=== PATIENT | male | born 1960 | race Caucasian/White ===

== ENCOUNTER 2018-03-18 21:02 | Emergency (ER) | payer OTHER, MEDICARE ==
[~2018-03-18] VITALS: Ht 170.2 cm; Wt 77.1 kg
[~2018-03-18 21:02] MED LIST: ASP81TEC PO; ASPI-892 PO; ASPI81TA19 PO; CLOP75TA28 PO; CLPD75T PO; INSU100I10 SC; INSU100I14 SC; LISI-556 PO; Lisinopril PO; METO-272 PO; METO50TA7 PO; PNT40TEC PO; SIMV40TA2 PO; SIMV40TA4 PO; VENL150C53 PO
[2018-03-18] MEDS ORDERED: ceFAZolin 1,000 MG/10 ML (ANCEF) VIAL IJ ONE (21:15)
[2018-03-18] MEDS ORDERED: TETANUS,DIPTH,PERTUSS P/F (BOOSTRIX) 0.5 ML VIAL IM ONE (21:15)
--- NOTE | 2018-03-18 21:16 | ED Lower Extremity ---
General Chief Complaint: Laceration Stated Complaint: CUT L KNEE Source: patient Exam Limitations: no limitations History of Present Illness Date Seen by Provider: Mar 18, 2018 Time Seen by Provider: 21:15 Initial Comments To ER with a laceration to the lateral aspect of the left knee. This occurred about 5 PM today while cutting wood. Onset: just prior to arrival Severity: moderate Pain/Injury Location: left knee Method of Injury: fell Modifying Factors: Worse With Movement Allergies and Home Medications Allergies Coded Allergies: No Known Drug Allergies (Unverified , 01/03/14) Home Medications Aspirin 81 Mg Chew, 81 MG PO DAILY Prescribed by: TRUDY STEVENS on 07/13/14 1333 Clopidogrel Bisulfate 75 Mg Tablet, 75 MG PO DAILY, (Reported) Insulin Aspart 100 Unit/1 Ml Insuln.pen, 30 UNITS SC DAILY, (Reported) Insulin Glargine,Hum.rec.anlog 300 Unit/3 Ml Insuln.pen, 55-60 UNITS SC HS, ( Reported) Lisinopril 5 Mg Tablet, 5 MG PO DAILY, (Reported) Metoprolol Succinate 50 Mg Tab.sr.24h, 50 MG PO DAILY, (Reported) Pantoprazole Sod 40 Mg Tab, 40 MG PO DAILY Prescribed by: TRUDY STEVENS on 07/13/14 1330 Simvastatin 40 Mg Tablet, 40 MG PO HS, (Reported) Venlafaxine Hcl 150 Mg Cap.sr.24h, 150 MG PO HS, (Reported) Patient Home Medication List Home Medication List Reviewed: Yes Review of Systems Constitutional: see HPI EENTM: see HPI Respiratory: no symptoms reported Cardiovascular: no symptoms reported Genitourinary: no symptoms reported Musculoskeletal: no symptoms reported Skin: no symptoms reported Psychiatric/Neurological: No Symptoms Reported Past Ezikltk-Odnlru-Lxumqw Hx Patient Social History Recent Foreign Travel: No Contact w/Someone Who Travel: No Immunizations Up To Date Tetanus Booster (TDap): Unknown PED Vaccines UTD: No Past Medical History Coronary Stent, Orthopedic Coronary Artery Disease, High Cholesterol, Hypertension Reproductive Disorders: No Degenerate Disk Disease, Foot Drop Diabetes, Insulin dep Anxiety, Depression Adverse Reaction/Blood Tranf: No (No transfusion hx.) Family Medical History Diabetes mellitus 19 FATHER, Onset:50's - 60 Myocardial infarction 19 FATHER, Onset:Unknown Parkinson's disease 19 MOTHER No Family History of: Degenerative disc disease CAD Under 55 Years Old Physical Exam Vital Signs Vital Signs - First Documented 03/18/18 21:10 Temp 98.0 Pulse 93 Resp 17 B/P (MAP) 154/99 (117) Capillary Refill : Height, Weight, BMI Height: 5'7.00" Weight: 199lbs. 6.0oz. 90.660747sy; BMI Method:Stated General Appearance: WD/WN, no apparent distress HEENT: PERRL/EOMI, normal ENT inspection Respiratory: no respiratory distress, no accessory muscle use Hips: bilateral hip non-tender, bilateral hip normal inspection, bilateral hip normal range of motion Legs: bilateral leg non-tender, bilateral leg normal inspection, bilateral leg normal range of motion Knees: left knee pain, left knee other (there is a large laceration to the lateral aspect of the left knee at the patella. It does appear that he has partially injured the patella. He is able to lift his foot off the bed so the patella and patellar tendons remain intact.) Ankles: bilateral ankle non-tender, bilateral ankle normal inspection, bilateral ankle normal range of motion Feet: bilateral foot non-tender, bilateral foot normal inspection, bilateral foot normal range of motion Neurologic/Psychiatric: alert, normal mood/affect, oriented x 3 Skin: normal color, warm/dry (DC what is wearing) Procedures/Interventions Wound Location: Lower Extremities Wound Length (cm): 6 Wound's Depth, Shape: bone Wound Explored: contaminated Irrigated w/ Saline (ccs): 750 Anesthesia: 1% Lidocaine Volume Anesthetic (ccs): 5 Wound Debrided: moderate Suture: Ethlion, Vicryl Suture Size: 4-0 Number of Sutures: 8 Layer Closure?: 2 Number Deep Layer Sutures: 2 Progress Area anesthetized with 5 mL of 2% lidocaine without epinephrine. Wound then scrubbed with chlorhexidine/saline solution. Wound then irrigated with a total of 750 mL of chlorhexidine/saline solution. On expiration the wound there were some foreign bodies identified which appear to be fibers from the jeans that he was wearing. These were removed. There was a palpable defect in the lateral border of the patella. The fascia overlying this was then closed with 3 buried sutures size 4-0 Vicryl. Skin edges were then brought together loosely with a total of 6 simple interrupted sutures size 4-0 Ethilon. Progress/Results/Core Measures Results/Orders My Orders Orders - OSPINA,PETER J AEROSPACE TECHNICIAN Knee, Left, 3 Views (03/18/18 21:13) Dipht,Pertuss(Acell),Tet Adult (Boostrix (03/18/18 21:15) Cefazolin Injection (Ancef Injection) (03/18/18 21:15) Rx-Hydrocodone/Apap 5-325 Mg (Rx-Vicodin (03/18/18 21:15) Ceftriaxone For Im Use (Rocephin For Im (03/18/18 21:30) Lidocaine 1% Inj 20 Ml (Xylocaine 1% Inj (03/18/18 21:20) Ceftriaxone For Iv Use (Rocephin For I (03/18/18 21:20) Medications Given in ED Current Medications Medications Dose Ordered Sig/Jas Route Start Time Stop Time Status Last Admin Dose Admin Acetaminophen/ Hydrocodone Bitart 1 ea Q4H PRN PO 03/18/18 21:15 03/18/18 21:37 1 EA Ceftriaxone Sodium 1,000 mg STK-MED ONCE .ROUTE 03/18/18 21:20 03/18/18 21:23 DC 03/18/18 21:36 1,000 MG Diphtheria/ Tetanus/Acell Pertussis 0.5 ml ONCE ONCE IM 03/18/18 21:15 03/18/18 21:16 DC 03/18/18 21:35 0.5 ML Lidocaine HCl 20 ml STK-MED ONCE .ROUTE 03/18/18 21:20 03/18/18 21:22 DC 03/18/18 21:36 2.1 ML Vital Signs/I&O 03/18/18 21:10 Temp 98.0 Pulse 93 Resp 17 B/P (MAP) 154/99 (117) Departure Communication (Admissions) He did receive intramuscular Rocephin and Bactrim here in the emergency room. We spoke with Dr. Euceda who is on-call for orthopedics. Recommends thorough irrigation, closure here in the emergency room and he will follow-up next week. He would like to have Keflex and Bactrim prescribed in the outpatient setting. Impression Primary Impression: Knee laceration Disposition: 01 HOME, SELF-CARE Condition: Stable Departure-Patient Inst. Decision time for Depature: 22:16 Referrals: SHAYLA EUCEDA MD, FLOYD R MD (PCP/Family) Primary Care Physician Patient Instructions: Laceration Repair With Stitches (DC) Add. Discharge Instructions: 1. I've listed Dr. Euceda's phone number. Give him a call tomorrow to make an appointment to be seen next week. Antibiotics as directed. 1. Wait 48 hours before showering. Change the bandaid daily. Antibiotics as directed. Scripts Cephalexin (Keflex) 500 Mg Capsule 500 MG PO Q6H, #28 CAP Prov: DAVID OSPINA APRN 03/18/18 Sulfamethoxazole/Trimethoprim (Bactrim Ds Tablet) 1 Each Tablet 1 EACH PO BID, #20 TAB Prov: DAVID OSPINA APRN 03/18/18 DAVID OSPINA APRN Mar 18, 2018 21:16
[2018-03-18] MEDS ORDERED: cefTRIAXone 1 GM/10 ML for IV (ROCEPHIN) ONE (21:20)
[2018-03-18] MEDS ORDERED: LIDOCAINE 1% INJ 20 ML 20 ML VIAL ONE (21:20)
[2018-03-18] MEDS ORDERED: cefTRIAXone 1,000 MG/2.86 ml vial (IM ONLY) IM SCH (21:30)
[2018-03-18] MEDS: RX-HYDROCODONE/APAP 5/325 MG #4 TAB PK PO PRN ×2 (21:37→22:22)
[2018-03-18] MEDS ORDERED: TRIM/SULFAMETH 160/800 (SEPTRA DS) TAB PO STA (21:50)
--- NOTE | 2018-03-18 21:59 | Diagnostic Imaging Report ---
INDICATION: Laceration of the knee COMPARISON: None. FINDINGS: 3 views of the left knee joint demonstrate no acute fracture or dislocation. No focal osseous lesions are seen. No significant joint effusion is seen. There is mild soft tissue emphysema. There are no radiopaque foreign bodies. IMPRESSION: 1. Mild soft tissue emphysema of the left knee, but no unexpected radiopaque foreign bodies. No radiographic evidence of acute osseous injury. Dictated by: Dictated on workstation # [id number]
[2018-03-18] MEDS ORDERED: CEPH-507 PO (22:20)
[2018-03-18] MEDS ORDERED: SULF1TAB35 PO (22:20)
[2018-03-18 22:25] VITALS: BP 154/99
--- OUTSIDE RECORDS SUMMARY | 2018-03-19 04:27 | XMS REPORT | Continuity of Care Document ---
Author Author [facility] Organization [facility] Address Unknown Phone Unavailable Allergies Active Description Code Type Severity Reaction Onset Reported/Identified Relationship to Patient Clinical Status Yes No Known Drug Allergies [id number] Drug Allergy Unknown N/A 01/03/2014 Medications There is no data. Problems Date Dx Coded Attending Type Code Diagnosis Diagnosed By 01/04/2014 [facility]IL[facility] 250.00 DIAB PETRON[place] WO COMPL, TYPE II OR UNSPEC TY 01/04/2014 HILDA AYERS FACC[facility] Ot 300.4 DYSTHYMIC DISORDER 01/04/2014 HILDA A[facility]ERS [facility]ACC[facility] Ot 305.1 TOBACCO USE DISORDER 01/04/2014 HILDA A[facility]ERS [facility]ACC[facility] Ot 401.9 HYPERTENSION NOS 01/04/2014 HILDA AYERS FACC[facility] Ot 414.01 CORONARY ATHEROSCLEROSIS OF [place] CORON 01/04/2014 HILDA AYERS FACC, [facility] Ot V17.3 FAM HX-ISCHEM HEART DIS 01/04/2014 HILDA AYERS FACC[facility] Ot V58.67 LONG-TERM (CURRENT) USE OF INSULIN 01/04/2014 TRUDY STEVENS MD, FACC [facility] CCDS Ot V58.69 OTH MED,LT,CURRENT USE 03/10/2014 ABRAHAN PEÑA LOCOMOTIVE CRANE OPERATOR Ot 272.4 03/10/2014 ABRAHAN PEÑA LOCOMOTIVE CRANE OPERATOR Ot 414.9 03/15/2014 Ot 250.00 03/15/2014 Ot 272.4 03/15/2014 Ot 401.1 03/15/2014 Ot 250.00 03/15/2014 Ot 401.1 03/15/2014 Ot 722.0 03/15/2014 Ot 722.51 03/15/2014 Ot 781.3 03/15/2014 Ot 781.3 03/15/2014 Ot V81.5 03/15/2014 ABRAHAN PEÑA LOCOMOTIVE CRANE OPERATOR Ot 272.4 03/15/2014 ABRAHAN PEÑA LOCOMOTIVE CRANE OPERATOR Ot 414.9 07/11/2014 Ot 250.00 07/11/2014 Ot 272.4 07/11/2014 Ot 401.1 07/11/2014 Ot 250.00 07/11/2014 Ot 401.1 07/11/2014 Ot 722.0 07/11/2014 Ot 722.51 07/11/2014 Ot 781.3 07/11/2014 Ot 781.3 07/11/2014 Ot V81.5 07/11/2014 ABRAHAN PEÑA LOCOMOTIVE CRANE OPERATOR Ot 272.4 07/11/2014 ABRAHAN PEÑA LOCOMOTIVE CRANE OPERATOR Ot 414.9 07/13/2014 HILDA AYERS FACC, ALI FACP CCDS Ot 250.00 07/13/2014 HILDA AYERS FACC, ALI FACP CCDS Ot 272.4 07/13/2014 HILDA THOMASC, ALI FACP CCDS Ot 300.00 07/13/2014 HILDA THOMASC, ALI FACP CCDS Ot 305.01 07/13/2014 HILDA AYERS FACC, ALI FACP CCDS Ot 305.1 07/13/2014 HILDA AYERS FACC, ALI FACP CCDS Ot 311 07/13/2014 HILDA AYERS FACC, ALI FACP CCDS Ot 401.9 07/13/2014 HILDA AYERS FACC, ALI FACP CCDS Ot 414.01 07/13/2014 HILDA THOMASC, ALI FACP CCDS Ot 530.81 07/13/2014 HILDA THOMASC, ALI FACP CCDS Ot 715.90 07/13/2014 HILDA THOMASC, ALI FACP CCDS Ot 736.79 07/13/2014 HILDA AYERS FACC, ALI FACP CCDS Ot 786.50 07/13/2014 HILDA AYERS FACC, ALI FACP CCDS Ot V15.81 07/13/2014 HILDA THOMASC, ALI FACP CCDS Ot V17.3 07/13/2014 HILDA AYERS FACC, ALI FACP CCDS Ot V45.82 07/13/2014 HILDA AYERS FACC, ALI FACP CCDS Ot 250.00 DIAB PETRONA WO COMPL, TYPE II OR UNSPEC TY 07/13/2014 HILDA AYERS FACC, ALI FACP CCDS Ot 272.4 HYPERLIPIDEMIA NEC/NOS 07/13/2014 HILDA AYERS FACC, ALI FACP CCDS Ot 300.00 ANXIETY STATE NOS 07/13/2014 HILDA AYERS FACC, ALI FACP CCDS Ot 305.01 ALCOHOL ABUSE-CONTINUOUS 07/13/2014 HILDA AYERS FACC, ALI FACP CCDS Ot 305.1 TOBACCO USE DISORDER 07/13/2014 HILDA AYERS FACC, ALI FACP CCDS Ot 311 DEPRESSIVE DISORDER NEC 07/13/2014 HILDA AYERS FACC, ALI FACP CCDS Ot 401.9 HYPERTENSION NOS 07/13/2014 HILDA AYERS FACC, ALI FACP CCDS Ot 414.01 CORONARY ATHEROSCLEROSIS OF [place] CORON 07/13/2014 HILDA THOMASC, ALI FACP CCDS Ot 530.81 ESOPHAGEAL REFLUX 07/13/2014 HILDA THOMASC, ALI FACP CCDS Ot 715.90 OSTEOARTHROS NOS-UNSPEC 07/13/2014 HILDA AYERS FACC, ALI FACP CCDS Ot 736.79 ACQ ANKLE-FOOT DEF NEC 07/13/2014 HILDA AYERS FACC, ALI FACP CCDS Ot 786.50 07/13/2014 HILDA AYERS FACC, ALI FACP CCDS Ot 786.59 CHEST PAIN NEC 07/13/2014 HILDA AYERS FACC, ALI FACP CCDS Ot V15.81 HX OF PAST NONCOMPLIANCE 07/13/2014 HILDA AYERS FACC, ALI FACP CCDS Ot V17.3 FAM HX-ISCHEM HEART DIS 07/13/2014 HILDA THOMASC, ALI FACP CCDS Ot V45.82 PERCUTANEOUS TRANSLUM CORON ANGIOPLASTY 04/19/2015 Ot 250.00 04/19/2015 Ot 401.1 04/19/2015 Ot 722.0 04/19/2015 Ot 722.51 04/19/2015 Ot 781.3 04/19/2015 Ot 781.3 04/19/2015 Ot V81.5 04/19/2015 ABRAHAN PEÑA LOCOMOTIVE CRANE OPERATOR Ot 272.4 04/19/2015 ABRAHAN PEÑA LOCOMOTIVE CRANE OPERATOR Ot 414.9 04/19/2015 JC AYERS, ELVIS Cheung Ot 355.9 04/19/2015 ELVIS GREENE MD Ot 723.1 04/19/2015 ELVIS GREENE MD R Ot 724.2 04/23/2016 Ot 722.0 CERVICAL DISC DISPLACMNT 04/23/2016 Ot 722.51 THORACIC DISC DEGEN 04/23/2016 Ot 781.3 LACK OF COORDINATION 04/23/2016 Ot 781.3 LACK OF COORDINATION 04/23/2016 Ot V81.5 SCREEN FOR NEPHROPATHY 04/23/2016 ABRAHAN PEÑA LOCOMOTIVE CRANE OPERATOR Ot 272.4 HYPERLIPIDEMIA NEC/NOS 04/23/2016 ABRAHAN PEÑA LOCOMOTIVE CRANE OPERATOR Ot 414.9 CHR ISCHEMIC HRT DIS NOS 04/23/2016 JC AYERS, ELVIS R Ot 355.9 MONONEURITIS NOS 04/23/2016 JC AYERS, ELVIS R Ot 723.1 CERVICALGIA 04/23/2016 ELVIS GREENE MD R Ot 724.2 LUMBAGO 02/23/2017 PHOENIX SCHMITZ MD Ot S49.91XA UNSP INJURY OF RIGHT SHOULDER AND UPPER 02/23/2017 PHOENIX SCHMITZ MD Ot W17.89XA OTHER FALL FROM ONE LEVEL TO ANOTHER, IN 02/23/2017 PHOENIX SCHMITZ MD Ot W55.19XA OTHER CONTACT WITH HORSE, INITIAL ENCOUN 02/23/2017 PHOENIX SCHMITZ MD Ot Y99.8 OTHER EXTERNAL CAUSE STATUS 04/10/2017 PHOENIX SCHMITZ MD Ot S49.91XA UNSP INJURY OF RIGHT SHOULDER AND UPPER 04/10/2017 PHOENIX SCHMITZ MD Ot W17.89XA OTHER FALL FROM ONE LEVEL TO ANOTHER, IN 04/10/2017 PHOENIX SCHMITZ MD Ot W55.19XA OTHER CONTACT WITH HORSE, INITIAL ENCOUN 04/10/2017 PHOENIX SCHMITZ MD Ot Y99.8 OTHER EXTERNAL CAUSE STATUS 04/24/2017 PHOENIX SCHMITZ MD Ot S49.91XA UNSP INJURY OF RIGHT SHOULDER AND UPPER 04/24/2017 PHOENIX SCHMITZ MD Ot W17.89XA OTHER FALL FROM ONE LEVEL TO ANOTHER, IN 04/24/2017 PHOENIX SCHMITZ MD Ot W55.19XA OTHER CONTACT WITH HORSE, INITIAL ENCOUN 04/24/2017 PHOENIX SCHMITZ MD Ot Y99.8 OTHER EXTERNAL CAUSE STATUS Procedures There is no data. Results There is no data. Encounters ACCT No. Visit Date/Time Discharge Status Pt. Type Provider Facility Loc./Unit Complaint [id number] 02/22/2017 17:48:00 02/22/2017 23:59:59 CLS Outpatient NADIR AYERS, PHOENIX Reaves [facility] RAD FELL OFF HORSE ON SHOULDER [id number] 08/09/2014 10:22:00 08/09/2014 23:59:59 CLS Outpatient JC AYERS, ELVIS R [facility] RAD NECK PAIN, LBP [id number] 07/12/2014 11:43:00 07/13/2014 16:05:00 DIS Inpatient HILDA AYERS FACC, TRUDY INFANTE CCDS [facility] CSD CHEST PAIN [id number] 02/03/2014 08:40:00 02/03/2014 23:59:59 CLS Outpatient ABRAHAN PEÑA [facility] LAB HYPERLIPADEMIA,NEC, [id number] 01/03/2014 08:00:00 01/04/2014 11:00:00 DIS Outpatient TRUDY STEVENS MD, FACC, FACP CCDS [facility] CATH CHEST PAIN [id number] 02/25/2011 12:17:00 Document Registration [id number] 02/23/2011 09:10:00 Document Registration [id number] 02/24/2010 07:45:00 Document Registration [id number] 08/05/2009 13:06:00 Document Registration
== END 2018-03-18 22:29 | disposition home or self-care (01) ==
LOC: EDUNIT# 21:02 → ER 21:03
DX: S81.012A Laceration without foreign body, left knee, initial encounter (principal); I25.10 Atherosclerotic heart disease of native coronary artery without angina pectoris; E78.00 Pure hypercholesterolemia, unspecified; I10 Essential (primary) hypertension; E11.9 Type 2 diabetes mellitus without complications; F41.9 Anxiety disorder, unspecified; F32.9 Major depressive disorder, single episode, unspecified; Z23 Encounter for immunization; Z95.5 Presence of coronary angioplasty implant and graft; Z82.49 Family history of ischemic heart disease and other diseases of the circulatory system; Z79.82 Long term (current) use of aspirin; Z79.02 Long term (current) use of antithrombotics/antiplatelets; Z79.4 Long term (current) use of insulin; W26.9XXA Contact with unspecified sharp object(s), initial encounter; W19.XXXA Unspecified fall, initial encounter
CPT/HCPCS: 73562; 90715

== ENCOUNTER → 2018-04-27 | Outpatient (CLI) | payer OTHER, MEDICARE ==
[~2018-04-27] VITALS: Ht 170.2 cm; Wt 77.1 kg
[~2018-04-27] MED LIST changes: +CATHETER FLUSH 10 ML SYR IV PRN; +CEPH-507 PO; +REGADENOSON 0.4 MG/5 ML SYR (LEXISCAN) IV ONE; +SULF1TAB35 PO
[2018-04-27 08:16] VITALS: BP 135/86
[2018-04-27 08:28] VITALS: BP 137/78
--- NOTE | 2018-04-28 11:30 | STRESS TEST ---
DATE OF SERVICE: 04/27/2018 RESTING AND POST REGADENOSON TECHNETIUM-99M TETROFOSMIN SPECT CT IMAGING ORDERING PHYSICIAN: Dr. Montelongo. PRIMARY PHYSICIAN: Dr. Irizarry. CLINICAL DIAGNOSES: Coronary artery disease, diabetes and hypertension. Baseline images were carried out after injection of 10.13 mCi of technetium-99m Tetrofosmin for stress imaging. This was followed by 0.4 mg Regadenoson and 32.3 mCi of technetium-99m Tetrofosmin for stress imaging. The electrocardiogram showed sinus rhythm at baseline and did not change significantly with the Regadenoson infusion. The patient noted some shortness of breath and a headache following Regadenoson infusion, which resolved in a few minutes. Review of images at rest and following stress does not indicate any distinct perfusion defects consistent with significant myocardial ischemia or infarction. Some degree of diaphragmatic attenuation is seen both at rest and following a Regadenoson infusion. Gated images show a normal global left ventricular systolic function with normal regional wall motion, including the diaphragmatic wall of the left ventricle. Left ventricular ejection fraction is calculated to be 70%. Left ventricular end diastolic volume is 52 mL. TID is absent (1.09). CONCLUSIONS: 1. No evidence of any significant myocardial ischemia or infarction. 2. Normal regional wall motion. 3. Normal global left ventricular systolic function with a calculated ejection fraction of 70%. Job ID: [id number] DocumentID: [id number] Dictated Date: 04/28/2018 09:20:24 Helmet Hat Puncher Date: 04/28/2018 11:30:20 Dictated By: TRUDY MONTELONGO MD, MA, FACP, FACC,
== END ==
LOC: CARD 07:24
PROVIDERS: ATTEND Internal Medicine Cardiovascular Disease
DX: I25.10 Atherosclerotic heart disease of native coronary artery without angina pectoris (principal); E11.9 Type 2 diabetes mellitus without complications; I10 Essential (primary) hypertension; Z72.0 Tobacco use
CPT/HCPCS: 78452; 93017

== ENCOUNTER 2018-05-22 04:03 | Emergency (ER) | payer OTHER, MEDICARE ==
[~2018-05-22] VITALS: Ht 177.8 cm; Wt 77.1 kg
[~2018-05-22 04:03] MED LIST changes: -CATHETER FLUSH 10 ML SYR IV PRN; -REGADENOSON 0.4 MG/5 ML SYR (LEXISCAN) IV ONE
--- OUTSIDE RECORDS SUMMARY | 2018-05-22 04:10 | XMS REPORT | Continuity of Care Document ---
Author Author [facility] [address] Organization [facility] [address] Address Unknown Phone Unavailable Allergies Active Description Code Type Severity Reaction Onset Reported/Identified Relationship to Patient Clinical Status Yes No Known Drug Allergies [id number] Drug Allergy Unknown N/A 01/03/2014 Medications There [...] HOSPITAL[facility] CCDS Ot 414.01 CORONARY ATHEROSCLEROSIS OF [place] CORON 01/04/2014 HILDA AYERS [facility]ACC, [facility] Ot V17.3 FAM HX-ISCHEM HEART DIS 01/04/2014 HILDA AYERS FACC, TRUD[facility] Ot V58.67 LONG-TERM (CURRENT) USE OF INSULIN 01/04/2014 TRUDY STEVENS MD, FACC [facility] CCDS Ot V58.69 OTH MED,LT,CURRENT USE 03/10/2014 ABRAHAN PEÑA AUTO FLEET MANAGER Ot 272.4 03/10/2014 ABRAHAN PEÑA AUTO FLEET MANAGER Ot 414.9 03/15/2014 Ot 250.00 03/15/2014 Ot 272.4 03/15/2014 Ot 401.1 03/15/2014 Ot 250.00 03/15/2014 Ot 401.1 03/15/2014 Ot 722.0 03/15/2014 Ot 722.51 03/15/2014 Ot 781.3 03/15/2014 Ot 781.3 03/15/2014 Ot V81.5 03/15/2014 ABRAHAN PEÑA AUTO FLEET MANAGER Ot 272.4 03/15/2014 ABRAHAN PEÑA AUTO FLEET MANAGER Ot 414.9 07/11/2014 Ot 250.00 07/11/2014 Ot 272.4 07/11/2014 Ot 401.1 07/11/2014 Ot 250.00 07/11/2014 Ot 401.1 07/11/2014 Ot 722.0 07/11/2014 Ot 722.51 07/11/2014 Ot 781.3 07/11/2014 Ot 781.3 07/11/2014 Ot V81.5 07/11/2014 ABRAHAN PEÑA AUTO FLEET MANAGER Ot 272.4 07/11/2014 ABRAHAN PEÑA AUTO FLEET MANAGER Ot 414.9 07/13/2014 HILDA AYERS FACC, ALI [...] FACC, ALI FACP CCDS Ot 401.9 07/13/2014 IHLDA AYERS FACC, ALI FACP CCDS Ot 414.01 [...] FACP CCDS Ot 414.01 CORONARY ATHEROSCLEROSIS OF [place] CORON 07/13/2014 HILDA THOMASC, ALI FACP CCDS [...] Ot V15.81 HX OF PAST NONCOMPLIANCE 07/13/2014 HILAD AYERS FACC, ALI FACP CCDS Ot V17.3 FAM HX-ISCHEM HEART DIS 07/13/2014 HILDA THOMASC, ALI FACP CCDS Ot V45.82 PERCUTANEOUS TRANSLUM CORON ANGIOPLASTY 04/19/2015 Ot 250.00 04/19/2015 Ot 401.1 04/19/2015 Ot 722.0 04/19/2015 Ot 722.51 04/19/2015 Ot 781.3 04/19/2015 Ot 781.3 04/19/2015 Ot V81.5 04/19/2015 ABRAHAN PEÑA AUTO FLEET MANAGER Ot 272.4 04/19/2015 ABRAHAN PEÑA AUTO FLEET MANAGER Ot 414.9 04/19/2015 JC AYERS, ELVIS Cheung Ot 355.9 04/19/2015 ELVIS GREENE MD Ot 723.1 04/19/2015 ELVIS GREENE MD R Ot 724.2 04/23/2016 Ot 722.0 CERVICAL DISC DISPLACMNT 04/23/2016 Ot 722.51 THORACIC DISC DEGEN 04/23/2016 Ot 781.3 LACK OF COORDINATION 04/23/2016 Ot 781.3 LACK OF COORDINATION 04/23/2016 Ot V81.5 SCREEN FOR NEPHROPATHY 04/23/2016 RUBIABRAHAN SANCHEZ L AUTO FLEET MANAGER Ot 272.4 HYPERLIPIDEMIA NEC/NOS 04/23/2016 RUBIDANIEL ABRAHAN L AUTO FLEET MANAGER Ot 414.9 CHR ISCHEMIC HRT DIS NOS 04/23/2016 JC AYERS, ELVIS R Ot 355.9 MONONEURITIS NOS 04/23/2016 JC AYERS, ELVIS R Ot 723.1 CERVICALGIA 04/23/2016 JC AYERS, ELVIS R Ot 724.2 LUMBAGO 02/23/2017 PHOENIX SCHMITZ [...] MD Ot Y99.8 OTHER EXTERNAL CAUSE STATUS 03/18/2018 RUBIDANIELABRAHAN L AUTO FLEET MANAGER Ot 272.4 HYPERLIPIDEMIA NEC/NOS 03/18/2018 ABRAHAN PEÑA AUTO FLEET MANAGER Ot 414.9 CHR ISCHEMIC HRT DIS NOS 03/18/2018 JC AYERS, ELVIS R Ot 355.9 MONONEURITIS NOS 03/18/2018 JC AYERS, ELVIS R Ot 723.1 CERVICALGIA 03/18/2018 JC AYERS, ELVIS R Ot 724.2 LUMBAGO 03/18/2018 PHOENIX SCHMITZ MD Ot S49.91XA UNSP INJURY OF RIGHT SHOULDER AND UPPER 03/18/2018 PHOENIX SCHMITZ MD Ot W17.89XA OTHER FALL FROM ONE LEVEL TO ANOTHER, IN 03/18/2018 PHOENIX SCHMITZ MD Ot W55.19XA OTHER CONTACT WITH HORSE, INITIAL ENCOUN 03/18/2018 PHOENIX SCHMITZ MD Ot Y99.8 OTHER EXTERNAL CAUSE STATUS 03/18/2018 DAVID OSPINA APRN Ot E11.9 TYPE 2 DIABETES MELLITUS WITHOUT COMPLIC 03/18/2018 DAVID OSPINA APRN Ot E78.00 PURE HYPERCHOLESTEROLEMIA, UNSPECIFIED 03/18/2018 DAVID OSPINA APRN Ot F32.9 MAJOR DEPRESSIVE DISORDER, SINGLE EPISOD 03/18/2018 DAVID OSPINA APRN Ot F41.9 ANXIETY DISORDER, UNSPECIFIED 03/18/2018 DAVID OSPINA APRN Ot I10 ESSENTIAL (PRIMARY) HYPERTENSION 03/18/2018 DAVID OSPINA APRN Ot I25.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[place] CORONARY 03/18/2018 DAVID OSPINA APRN Ot S81.012A LACERATION WITHOUT FOREIGN BODY, LEFT KN 03/18/2018 DAVID OSPINA APRN Ot W19.XXXA UNSPECIFIED FALL, INITIAL ENCOUNTER 03/18/2018 DAVID OSPINA APRN Ot W26.9XXA CONTACT WITH UNSPECIFIED SHARP OBJECT(S) 03/18/2018 DAVID OSPINA APRN Ot Z23 ENCOUNTER FOR IMMUNIZATION 03/18/2018 DAVID OSPINA APRN Ot Z79.02 LADLE MECHANIC (CURRENT) USE OF ANTITHROMBOTI 03/18/2018 DAVID OSPINA APRN Ot Z79.4 LADLE MECHANIC (CURRENT) USE OF INSULIN 03/18/2018 DAVID OSPINA APRN Ot Z79.82 SKILLED NURSING (CURRENT) USE OF ASPIRIN 03/18/2018 DAVID OSPINA APRN Ot Z82.49 FAMILY HX OF ISCHEM HEART DIS AND OTH DI 03/18/2018 DAVID OSPINA APRN Ot Z95.5 PRESENCE OF CORONARY ANGIOPLASTY IMPLANT 03/21/2018 DAVID OSPINA APRN Ot E11.9 TYPE 2 DIABETES MELLITUS WITHOUT COMPLIC 03/21/2018 DAVID OSPINA APRN Ot E78.00 PURE HYPERCHOLESTEROLEMIA, UNSPECIFIED 03/21/2018 DAVID OSPINA APRN Ot F32.9 MAJOR DEPRESSIVE DISORDER, SINGLE EPISOD 03/21/2018 DAVID OSPINA APRN Ot F41.9 ANXIETY DISORDER, UNSPECIFIED 03/21/2018 DAVID OSPINA APRN Ot I10 ESSENTIAL (PRIMARY) HYPERTENSION 03/21/2018 DAVID OSPINA APRN Ot I25.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[place] CORONARY 03/21/2018 DAVID OSPINA APRN Ot S81.012A LACERATION WITHOUT FOREIGN BODY, LEFT KN 03/21/2018 DAVID OSPINA APRN Ot W19.XXXA UNSPECIFIED FALL, INITIAL ENCOUNTER 03/21/2018 DAVID OSPINA APRN Ot W26.9XXA CONTACT WITH UNSPECIFIED SHARP OBJECT(S) 03/21/2018 DAVID OSPINA APRN Ot Z23 ENCOUNTER FOR IMMUNIZATION 03/21/2018 DAVID OSPINA APRN Ot Z79.02 SKILLED NURSING (CURRENT) USE OF ANTITHROMBOTI 03/21/2018 DAVID OSPINA APRN Ot Z79.4 SKILLED NURSING (CURRENT) USE OF INSULIN 03/21/2018 DAVID OSIPNA APRN Ot Z79.82 LADLE MECHANIC (CURRENT) USE OF ASPIRIN 03/21/2018 DAVID OSPINA APRN Ot Z82.49 FAMILY HX OF ISCHEM HEART DIS AND OTH DI 03/21/2018 DAVID OSPINA APRN Ot Z95.5 PRESENCE OF CORONARY ANGIOPLASTY IMPLANT 03/23/2018 JC AYERS, ELVIS R Ot 355.9 MONONEURITIS NOS 03/23/2018 JC AYERS, ELVIS R Ot 723.1 CERVICALGIA 03/23/2018 JC AYERS, ELVIS R Ot 724.2 LUMBAGO 03/23/2018 NADIR AYERS, PHOENIX Reaves Ot S49.91XA UNSP INJURY OF RIGHT SHOULDER AND UPPER 03/23/2018 PHOENIX SCHMITZ MD Ot W17.89XA OTHER FALL FROM ONE LEVEL TO ANOTHER, IN 03/23/2018 PHOENIX SCHMITZ MD Ot W55.19XA OTHER CONTACT WITH HORSE, INITIAL ENCOUN 03/23/2018 PHOENIX SCHMITZ MD Ot Y99.8 OTHER EXTERNAL CAUSE STATUS 04/27/2018 ELVIS GREENE MD R Ot 355.9 MONONEURITIS NOS 04/27/2018 JC AYERS ELVIS R Ot 723.1 CERVICALGIA 04/27/2018 MARIANGEL GREENE MDYD R Ot 724.2 LUMBAGO 04/27/2018 PHOENIX SCHMITZ MD Ot S49.91XA UNSP INJURY OF RIGHT SHOULDER AND UPPER 04/27/2018 PHOENIX SCHMITZ MD Ot W17.89XA OTHER FALL FROM ONE LEVEL TO ANOTHER, IN 04/27/2018 PHOENIX SCHMITZ MD Ot W55.19XA OTHER CONTACT WITH HORSE, INITIAL ENCOUN 04/27/2018 PHOENIX SCHMITZ MD Ot Y99.8 OTHER EXTERNAL CAUSE STATUS 04/28/2018 HILDA AYERS FACC, TRUDY [facility] CCDS Ot E11.9 TYPE 2 DIABETES MELLITUS WITHOUT COMPLIC 04/28/2018 HILDA AYERS FACC, TRUDY FACP CCDS Ot I10 ESSENTIAL (PRIMARY) HYPERTENSION 04/28/2018 HILDA AYERS FACC, TRUDY FACP CCDS Ot I25.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[place] CORONARY 04/28/2018 HILDA AYERS FACC, TRUDY [facility] CCDS Ot Z72.0 TOBACCO USE Procedures There is no data. Results There is no data. Encounters ACCT No. Visit Date/Time Discharge Status Pt. Type Provider Facility Loc./Unit Complaint [id number] 04/27/2018 07:24:00 04/27/2018 23:59:59 CLS Outpatient HILDA AYERS FACC, TRUDY FACP CCDS [facility] [address] [facility] CARD CAD,DM,HTN, CHEWING TOBACCO USE [id number] 03/18/2018 21:03:00 03/18/2018 22:29:00 DIS Emergency DAVID OSPINA APRN [facility] [address] ER CUT L KNEE [id number] 02/22/2017 17:48:00 02/22/2017 23:59:59 CLS Outpatient NADIR AYERS, PHOENIX Reaves [facility] [address] RAD FELL OFF HORSE ON SHOULDER [id number] 08/09/2014 10:22:00 08/09/2014 23:59:59 CLS Outpatient JC AYERS, ELVIS R [facility] [address] RAD NECK PAIN, LBP [id number] 07/12/2014 11:43:00 07/13/2014 16:05:00 DIS Inpatient HILDA AYERS FACRoberto, TRUDY INFANTE CCDS [facility] [address] CSD CHEST PAIN [id number] 02/03/2014 08:40:00 02/03/2014 23:59:59 CLS Outpatient ABRAHAN PEÑA [facility] [address] LAB HYPERLIPADEMIA,NEC, [id number] 01/03/2014 08:00:00 01/04/2014 11:00:00 DIS Outpatient HILDA AYERS FACC, TRUDY INFANTE CCDS [facility] [address] CATH CHEST PAIN [id number] 05/22/2018 04:05:00 ACT Emergency HARJIT DOBONIFACIO K [facility] [address] ER FLU,POSS HIGH SUGAR,FEVER,SORE THROAT,POSS BROKEN [id number] 02/25/2011 12:17:00 Document Registration [id number] 02/23/2011 09:10:00 Document Registration [id number] 02/24/2010 07:45:00 Document Registration [id number] 08/05/2009 13:06:00 Document Registration
[2018-05-22] MEDS ORDERED: ACETAMINOPHEN 500 MG TAB (TYLENOL) PO ONE (04:30)
[2018-05-22] MEDS ORDERED: IBUPROFEN 800 MG (MOTRIN) TAB PO ONE (04:30)
--- NOTE | 2018-05-22 04:30 | ED Cough/URI ---
General Chief Complaint: Cough/Cold/Flu Symptoms Stated Complaint: FLU,POSS HIGH SUGAR,FEVER,SORE THROAT,POSS BROKEN Nursing Triage Note: Pt arrived by private vehicle with chief complaint of flu, sore throat, fever, runny nose and collar bone out of place. Pt stated it started 3 days ago and got worse today. Pt has fever of 100.1 and pt stated he is diabetic. Pt was asked if he has checked his blood sugar recently and he stated no. Sepsis Screen: Possible Sepsis Risk Source: patient History of Present Illness Date Seen by Provider: May 22, 2018 Time Seen by Provider: 04:20 Initial Comments PT ARRIVES VIA POV FROM HOME C/O COUGH AND CONGESTION SINCE Thursday05/09/18 C/O SUBJECTIVE FEVER AND CHILLS C/O SORE THROAT C/O BODY ACHES HAS NOT TAKEN ANYTHING FOR SYMPTOMS AT ANY TIME HAS NOT SOUGHT CARE UNTIL TODAY STATES GRANDKIDS TESTED + FOR FLU THIS WEEK PT IS DIABETIC. DOES NOT ROUTINELY CHECK BLOOD SUGAR PCP: DR. ROSARIO Allergies and Home Medications Allergies Coded Allergies: No Known Drug Allergies (Unverified , 01/03/14) Home Medications Aspirin 81 Mg Chew, 81 MG PO DAILY Prescribed by: TRUDY STEVENS on 07/13/14 1333 Benzonatate 100 Mg Capsule, 1-2 TAB PO TID Prescribed by: BONIFACIO LOMBARDI on 05/22/18447 Cephalexin 500 Mg Capsule, 500 MG PO Q6H Prescribed by: DAVID OSPINA on 03/18/18 2220 Clopidogrel Bisulfate 75 Mg Tablet, 75 MG PO DAILY, (Reported) Guaifenesin/Dextromethorphan 1 Each Tbmp.12hr, 1 EACH PO BID Prescribed by: BONIFACIO LOMBARDI on 05/22/18447 Insulin Aspart 100 Unit/1 Ml Insuln.pen, 30 UNITS SC DAILY, (Reported) Insulin Glargine,Hum.rec.anlog 300 Unit/3 Ml Insuln.pen, 55-60 UNITS SC HS, ( Reported) Lisinopril 5 Mg Tablet, 5 MG PO DAILY, (Reported) Metoprolol Succinate 50 Mg Tab.sr.24h, 50 MG PO DAILY, (Reported) Pantoprazole Sod 40 Mg Tab, 40 MG PO DAILY Prescribed by: TRUDY STEVENS on 07/13/14 1330 Simvastatin 40 Mg Tablet, 40 MG PO HS, (Reported) Sulfamethoxazole/Trimethoprim 1 Each Tablet, 1 EACH PO BID Prescribed by: DAVID OSPINA on 03/18/180 Venlafaxine Hcl 150 Mg Cap.sr.24h, 150 MG PO HS, (Reported) Patient Home Medication List Home Medication List Reviewed: Yes Review of Systems Review of Systems Constitutional: see HPI, chills, diaphoresis, fever EENTM: nose congestion, throat pain Respiratory: see HPI, cough; No phlegm, No short of breath, No wheezing Cardiovascular: no symptoms reported Gastrointestinal: no symptoms reported; No diarrhea, No nausea, No vomiting Genitourinary: no symptoms reported Musculoskeletal: see HPI (BODY ACHES), other (FX LEFT CLAVICLE 04/13/19--NO SURGERY, IS NOT WEARING A SLING) Skin: no symptoms reported Psychiatric/Neurological: No Symptoms Reported Hematologic/Lymphatic: No Symptoms Reported Immunological/Allergic: no symptoms reported Past Fbighxt-Nabvqu-Lxyqii Hx Patient Social History Alcohol Use: Denies Use Recreational Drug Use: No Smoking Status: Never a Smoker Recent Foreign Travel: No Contact w/Someone Who Travel: No Recent Infectious Disease Expo: No Recent Hopitalizations: No Physical Abuse: No Sexual Abuse: No Mistreated: No Fear: No Immunizations Up To Date Tetanus Booster (TDap): Unknown PED Vaccines UTD: No Seasonal Allergies Seasonal Allergies: No Past Medical History Surgeries: Yes (CARDIAC CATH--STENT X 1; CERVICAL AND LUMBAR SPINE SURGERY) Cardiac, Coronary Stent, Orthopedic Respiratory: No Cardiac: Yes Coronary Artery Disease, Hypertension, Hypotension Neurological: No Reproductive Disorders: No Gastrointestinal: No Musculoskeletal: Yes (CERVICAL FUSION C5-6; LUMBAR SPINE SURGERY; CHRONIC NECK AND BACK PAIN; LEFT CLAVICLE FX 04/13/18--NO SURGERY) Degenerate Disk Disease, Foot Drop, Chronic Back Pain, Fractures Endocrine: Yes (NON-COMPLIANCE IN ALL ASPECTS OF CARE) Diabetes, Insulin dep HEENT: No Cancer: No Psychosocial: Yes Anxiety, Depression Integumentary: No Blood Disorders: No Adverse Reaction/Blood Tranf: No (No transfusion hx.) Family Medical History Diabetes mellitus 19 FATHER, Onset:50's - 60 Myocardial infarction 19 FATHER, Onset:Unknown Parkinson's disease 19 MOTHER No Family History of: Degenerative disc disease CAD Under 55 Years Old Physical Exam Vital Signs - First Documented Capillary Refill : Less Than 3 Seconds Height: 5'10.00" Weight: 170lbs. 0.0oz. 77.740761kk; 26.6 BMI Method:Stated General Appearance: WD/WN, no apparent distress, other (VERY DRAMATIC, MOANING LOUDLY) HEENT: PERRL/EOMI, normal ENT inspection, TMs normal, pharynx normal, other ( MILD POST NASAL DRAINAGE) Neck: non-tender, full range of motion, supple, normal inspection Respiratory: normal breath sounds, no respiratory distress, no accessory muscle use, other (DEFORMITY TO LEFT CLAVICLE AREA. 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, no motor/sensory deficits, alert, oriented x 3 Skin: normal color Procedures/Interventions Suture Size: 4-0 Progress/Results/Core Measures Suspected Sepsis Recent Fever Within 48 Hours: Yes Infection Criteria Present: Suspected New Infection New/Unexplained Altered Menta: No Sepsis Screen: Possible Sepsis Risk SIRS Temperature:100.1 Pulse: 98 Respiratory Rate: 22 Laboratory Tests 05/22/18 05:05: White Blood Count 12.2H Blood Pressure 159 /94 Mean: 115 Laboratory Tests 05/22/18 05:05: Creatinine 1.03, Platelet Count 144, Total Bilirubin 0.3 Results/Orders Lab Results Laboratory Tests Test 05/22/18 04:15 05/22/18 04:52 05/22/18 05:05 05/22/18 05:30 Range/Units Group A Streptococcus Screen NEGATIVE NEGATIVE Glucometer 347 H 70-110 MG/DL White Blood Count 12.2 H 4.3-11.0 10^3/uL Red Blood Count 4.75 4.35-5.85 10^6/uL Hemoglobin 14.8 13.3-17.7 G/DL Hematocrit 42 40-54 % Mean Corpuscular Volume 89 80-99 FL Mean Corpuscular Hemoglobin 31 25-34 PG Mean Corpuscular Hemoglobin Concent 35 32-36 G/DL Red Cell Distribution Width 12.2 10.0-14.5 % Platelet Count 144 130-400 10^3/uL Mean Platelet Volume 10.6 H 7.4-10.4 FL Neutrophils (%) (Auto) 80 H 42-75 % Lymphocytes (%) (Auto) 7 L 12-44 % Monocytes (%) (Auto) 12 0-12 % Eosinophils (%) (Auto) 1 0-10 % Basophils (%) (Auto) 0 0-10 % Neutrophils # (Auto) 9.7 H 1.8-7.8 X 10^3 Lymphocytes # (Auto) 0.9 L 1.0-4.0 X 10^3 Monocytes # (Auto) 1.4 H 0.0-1.0 X 10^3 Eosinophils # (Auto) 0.1 0.0-0.3 10^3/uL Basophils # (Auto) 0.0 0.0-0.1 10^3/uL Neutrophils % (Manual) 82 % Lymphocytes % (Manual) 5 % Monocytes % (Manual) 9 % Eosinophils % (Manual) 4 % Band Neutrophils % Blood Morphology Comment NORMAL Sodium Level 131 L 135-145 MMOL/L Potassium Level 4.3 3.6-5.0 MMOL/L Chloride Level 96 L 98-107 MMOL/L Carbon Dioxide Level 22 21-32 MMOL/L Anion Gap 13 5-14 MMOL/L Blood Urea Nitrogen 21 H 7-18 MG/DL Creatinine 1.03 0.60-1.30 MG/DL Estimat Glomerular Filtration Rate > 60 BUN/Creatinine Ratio 20 Glucose Level 375 H 70-105 MG/DL Calcium Level 9.2 8.5-10.1 MG/DL Corrected Calcium 9.2 8.5-10.1 MG/DL Magnesium Level 2.1 1.8-2.4 MG/DL Total Bilirubin 0.3 0.1-1.0 MG/DL Aspartate Amino Transf (AST/SGOT) 29 5-34 U/L Alanine Aminotransferase (ALT/SGPT) 39 0-55 U/L Alkaline Phosphatase 114 40-136 U/L Total Protein 7.0 6.4-8.2 GM/DL Albumin 4.0 3.2-4.5 GM/DL Serum Alcohol < 10 <10 MG/DL Urine Color YELLOW Urine Clarity CLEAR Urine pH 8 5-9 Urine Specific [place] 1.010 L 1.016-1.022 Urine Protein NEGATIVE NEGATIVE Urine Glucose (UA) 4+ H NEGATIVE Urine Ketones 3+ H NEGATIVE Urine Nitrite NEGATIVE NEGATIVE Urine Bilirubin NEGATIVE NEGATIVE Urine Urobilinogen NORMAL NORMAL MG/DL Urine Leukocyte Esterase NEGATIVE NEGATIVE Urine RBC (Auto) NEGATIVE NEGATIVE Urine RBC NONE /HPF Urine WBC NONE /HPF Urine Crystals NONE /LPF Urine Bacteria NEGATIVE /HPF Urine Casts NONE /LPF Urine Mucus NEGATIVE /LPF Urine Culture Indicated NO Urine Opiates Screen NEGATIVE NEGATIVE Urine Oxycodone Screen NEGATIVE NEGATIVE Urine Methadone Screen NEGATIVE NEGATIVE Urine Propoxyphene Screen NEGATIVE NEGATIVE Urine Barbiturates Screen NEGATIVE NEGATIVE Ur Tricyclic Antidepressants Screen NEGATIVE NEGATIVE Urine Phencyclidine Screen NEGATIVE NEGATIVE Urine Amphetamines Screen NEGATIVE NEGATIVE Urine Methamphetamines Screen NEGATIVE NEGATIVE Urine Benzodiazepines Screen NEGATIVE NEGATIVE Urine Cocaine Screen NEGATIVE NEGATIVE Urine Cannabinoids Screen NEGATIVE NEGATIVE Test 05/22/18 06:34 Range/Units Glucometer 228 H 70-110 MG/DL Micro Results Microbiology 05/22/18 Influenza Types A,B Antigen (OBIE) - Final, Complete My Orders Orders - BONIFACIO LOMBARDI DO Rapid Strep A Screen (05/22/18 04:20) Influenza A And B Antigens (05/22/18 04:20) Chest Pa/Lat (2 View) (05/22/18 04:20) Acetaminophen Tablet (Tylenol Tablet) (05/22/18 04:30) Ibuprofen Tablet (Motrin Tablet) (05/22/18 04:30) Accucheck Stat ONCE (05/22/18 04:52) Alcohol (05/22/18 04:54) Cbc With Automated Diff (05/22/18 04:54) Comprehensive Metabolic Panel (05/22/18 04:54) Drug Screen Stat (Urine) (05/22/18 04:54) Magnesium (05/22/18 04:54) Ua Culture If Indicated (05/22/18 04:54) Saline Lock/Iv-Start (05/22/18 04:54) Ns Iv 1000 Ml (Sodium Chloride 0.9%) (05/22/18 04:54) Ns Iv 1000 Ml (Sodium Chloride 0.9%) (05/22/18 04:56) Manual Differential (05/22/18 05:05) Insulin (Regular) Human (Humulin R (Per (05/22/18 05:45) Saline Lock/Iv-Start (05/22/18 05:34) Ns Iv 1000 Ml (Sodium Chloride 0.9%) (05/22/18 05:34) Ekg Tracing (05/22/18 06:28) Monitor-Rhythm Ecg Trace Only (05/22/18 06:28) Medications Given in ED Current Medications Medications Dose Ordered Sig/Jas Route Start Time Stop Time Status Last Admin Dose Admin Acetaminophen 1,000 mg ONCE ONCE PO 05/22/18 04:30 05/22/18 04:31 DC 05/22/18 04:36 1,000 MG Ibuprofen 800 mg ONCE ONCE PO 05/22/18 04:30 05/22/18 04:31 DC 05/22/18 04:36 800 MG Insulin Human Regular 20 unit ONCE ONCE IV 05/22/18 05:45 05/22/18 05:46 DC 05/22/18 05:49 20 UNIT Sodium Chloride 1,000 ml @ 0 mls/hr Q0M ONCE IV 05/22/18 04:54 05/22/18 05:14 DC 05/22/18 05:06 1,000 MLS/HR Sodium Chloride 1,000 ml @ 0 mls/hr Q0M ONCE IV 05/22/18 05:34 05/22/18 05:37 DC 05/22/18 05:54 1,000 MLS/HR Vital Signs/I&O 05/22/18 05/22/18 05/22/18 05/22/18 04:18 04:18 05:57 07:11 Temp 100.1 99.7 Pulse 98 90 Resp 22 16 B/P (MAP) 159/94 (115) 128/83 (98) Pulse Ox 99 98 O2 Delivery Room Air Room Air Capillary Refill : Less Than 3 Seconds Blood Pressure Mean: 115 Progress Note : Progress Note 0450--ATTEMPTING TO DISMISS PT, NOW WANTS BLOOD SUGAR CHECKED AND STATES HE HAS NOT BEEN TAKING HIS INSULIN FOR A "LONG TIME", AND HAS NOT CHECKED HIS BLOOD SUGAR IN A "LONG TIME"--CANNOT STATE HOW LONG IT HAS BEEN. STATES IT HAS BEEN SO LONG THAT HE CANNOT REMEMBER WHEN HE LAST CHECKED HIS GLUCOSE OR TAKEN HIS INSULIN. STATES "I JUST HAVEN'T FELT LIKE IT" STATES HE HAS NOT BEEN TAKING ANY OF HIS OTHER MEDICATIONS EITHER. NO LONGER COMPLAINS OF COUGH/CONGESTION/FEVER ACCUCHECK 347--WILL GIVE IV FLUIDS AND OBTAIN LAB 0625--ATTEMPTING TO DISMISS PT AGAIN, AND NOW C/O CHEST TIGHTNESS AND SHORTNESS OF BREATH, EKG DONE. NO DYSPNEA, O2 SAT 99-100% ON ROOM AIR. LUNGS CLEAR. HR IN 80'S. REPEAT ACCUCHECK 227 TEMP DOWN AT DISMISSAL TO 99 EKG NORMAL PT NO LONGER C/O CHEST PAIN OR OTHER SYMPTOMS WHEN DISMISSED. ECG Initial ECG Impression Date: May 22, 2018 Initial ECG Impression Time: 06:42 Initial ECG Rate: 84 Initial ECG Rhythm: Normal Sinus Initial ECG Impression: Normal Initial ECG Comparisson: No Previous ECG Available Diagnostic Imaging Comments CXR--NO ACUTE PROCESS, PENDING RADIOLOGIST REVIEW Reviewed: Reviewed by Me Departure Impression Primary Impression: Influenza-like illness Additional Impressions: Exposure to influenza Uncontrolled diabetes mellitus Non-compliance Mild dehydration Electrolyte imbalance Disposition: HOME, SELF-CARE Condition: Improved Departure-Patient Inst. Referrals: VENKAT ROSARIO DO (PCP/Family) Primary Care Physician Patient Instructions: Flu, Adult (DC) Add. Discharge Instructions: LOTS OF FLUIDS CHECK YOUR BLOOD GLUCOSE AT LEAST 3 TIMES A DAY TAKE YOUR INSULIN PRESCRIBED TAKE YOUR REGULAR MEDICATIONS PRESCRIBED TYLENOL 1 GRAM / MOTRIN 800 MG 4 TIMES A DAY NEEDED FOR PAIN OR FEVER FOLLOW UP WITH YOUR DR IN 3-4 DAYS IF NO BETTER All discharge instructions reviewed with patient and/or family. Voiced understanding. Scripts Benzonatate (TESSALON PERLES) 100 Mg Capsule 1-2 TAB PO TID for Cough, #30 CAP Prov: BONIFACIO LOMBARDI DO 05/22/18 Guaifenesin/Dextromethorphan (Mucinex Dm ER 1,200-60 mg Tab) 1 Each Tbmp.12hr 1 EACH PO BID for 10 Days, #20 EA Prov: BONIFACIO LOMBARDI DO 05/22/18 BONIFACIO LOMBARDI DO May 22, 2018 04:29
[2018-05-22] MEDS ORDERED: GUAI1TBM19 PO (04:48)
[2018-05-22] MEDS ORDERED: BENZ100C18 PO (04:48)
[2018-05-22] MEDS ORDERED: NS IV 1000 ML 1,000 ML IV ONE ×2 (04:54→05:34)
[2018-05-22] MEDS ORDERED: NS IV 1000 ML 1,000 ML ONE (04:56)
[2018-05-22 05:10] LABS: BASOPHILS % (AUTO) 0 % (0-10); EOSINOPHILS # (AUTO) 0.1 10^3/uL (0.0-0.3); EOSINOPHILS % (AUTO) 1 % (0-10); HEMATOCRIT 42 % (40-54); HEMOGLOBIN 14.8 G/DL (13.3-17.7); LYMPHOCYTES # (AUTO) 0.9 X 10^3 (1.0-4.0); LYMPHOCYTES % (AUTO) 7 % (12-44); MEAN CORPUSCULAR HEMOGLOBIN 31 PG (25-34); MEAN CORPUSCULAR HGB CONC 35 G/DL (32-36); MEAN CORPUSCULAR VOLUME 89 FL (80-99); MEAN PLATELET VOLUME 10.6 FL (7.4-10.4); MONOCYTES # (AUTO) 1.4 X 10^3 (0.0-1.0); MONOCYTES % (AUTO) 12 % (0-12); NEUTROPHILS # (AUTO) 9.7 X 10^3 (1.8-7.8); NEUTROPHILS % (AUTO) 80 % (42-75); PLATELET COUNT 144 10^3/uL (130-400); RED CELL DISTRIBUTION WIDTH 12.2 % (10.0-14.5); WHITE BLOOD COUNT 12.2 10^3/uL (4.3-11.0)
[2018-05-22 05:29] LABS: ALANINE AMINOTRANSFERASE 39 U/L (0-55); ALKALINE PHOSPHATASE 114 U/L (40-136); BILIRUBIN,TOTAL 0.3 MG/DL (0.1-1.0); BUN/CREATININE RATIO 20; CALCIUM 9.2 MG/DL (8.5-10.1); CARBON DIOXIDE 22 MMOL/L (21-32); CHLORIDE 96 MMOL/L (98-107); CREATININE SERUM 1.03 MG/DL (0.60-1.30); GFR ESTIMATED > 60; GLUCOSE 375 MG/DL (70-105); MAGNESIUM 2.1 MG/DL (1.8-2.4); POTASSIUM 4.3 MMOL/L (3.6-5.0); SODIUM 131 MMOL/L (135-145)
[2018-05-22 05:37] LABS: LYMPHOCYTES % (MANUAL) 5 %; MONOCYTES % (MANUAL) 9 %; NEUTROPHILS % (MANUAL) 82 %
[2018-05-22 05:38] LABS: EOSINOPHILS % (MANUAL) 4 %; RBC MORPH NORMAL
[2018-05-22 05:38] LABS: BILIRUBIN,URINE NEGATIVE (NEGATIVE); CLARITY,URINE CLEAR; COLOR,URINE YELLOW; GLUCOSE, URINE (UA) 4+ (NEGATIVE); KETONES,URINE 3+ (NEGATIVE); LEUKOCYTE ESTERASE ,URINE NEGATIVE (NEGATIVE); NITRITE,URINE NEGATIVE (NEGATIVE); PH,URINE 8 (5-9); PROTEIN,URINE NEGATIVE (NEGATIVE); UROBILINOGEN,URINE NORMAL (NORMAL)
[2018-05-22] MEDS ORDERED: inSUlin (REGULAR) HUMAN 1 UNIT/0.01 ML (CHARGE PER UNIT) IV ONE (05:45)
[2018-05-22 05:47] LABS: BACTERIA,URINE NEGATIVE /HPF
[2018-05-22 05:50] LABS: AMPHETAMINE SCREEN, URINE NEGATIVE (NEGATIVE); BARBITURATE SCREEN URINE NEGATIVE (NEGATIVE); BENZODIAZEPINES SCREEN URINE NEGATIVE (NEGATIVE); CANNABINOID SCREEN, URINE NEGATIVE (NEGATIVE); COCAINE SCREEN URINE NEGATIVE (NEGATIVE); METHADONE STAT NEGATIVE (NEGATIVE); METHAMPHETAMINE SCREEN URINE S NEGATIVE (NEGATIVE); OPIATE SCREEN URINE NEGATIVE (NEGATIVE); OXYCODONE STAT NEGATIVE (NEGATIVE); PROPOXYPHENE STAT NEGATIVE (NEGATIVE); TRICYCLIC ANTIDEPRESSANTS SCRE NEGATIVE (NEGATIVE)
--- NOTE | 2018-05-22 06:19 | Diagnostic Imaging Report ---
EXAMINATION: CHEST (PA AND LATERAL) CLINICAL INDICATION: 57-year-old male, flu-like symptoms for 3 days. COMPARISON: July 11, 2014. FINDINGS: There is cervical spinal fusion hardware noted. There is a displaced fracture involving the middle third of the left clavicle with the lateral fracture fragment being displaced inferiorly by 1.5 cm. There is mild widening of the left acromioclavicular joint. There is productive bone formation arising from the coracoid along the expected distribution of the coracoclavicular ligaments likely relating to sequela of remote prior injury. There are chronic appearing left-sided rib deformities. Heart size and mediastinal contours are unremarkable. There is no identified pneumothorax. There is no pleural effusion. There is no identified focal airspace consolidation. IMPRESSION: 1. No identified acute cardiopulmonary abnormality. 2. Displaced fracture of the middle third of the left clavicle. 3. Sequela of remote prior coracoclavicular ligament injury and mild widening of the left acromioclavicular joint. Dictated by: Dictated on workstation # [id number]
[2018-05-22 07:11] VITALS: BP 128/83
== END 2018-05-22 07:11 | disposition home or self-care (01) ==
LOC: EDUNIT# 04:03 → ER 04:05
DX: J10.1 Influenza due to other identified influenza virus with other respiratory manifestations (principal); E11.9 Type 2 diabetes mellitus without complications; E86.0 Dehydration; E87.8 Other disorders of electrolyte and fluid balance, not elsewhere classified; I25.10 Atherosclerotic heart disease of native coronary artery without angina pectoris; I10 Essential (primary) hypertension; F41.9 Anxiety disorder, unspecified; F32.9 Major depressive disorder, single episode, unspecified; Z82.49 Family history of ischemic heart disease and other diseases of the circulatory system; Z91.19 Patient's noncompliance with other medical treatment and regimen; Z98.1 Arthrodesis status; Z79.82 Long term (current) use of aspirin; Z79.4 Long term (current) use of insulin; Z98.890 Other specified postprocedural states; Z95.5 Presence of coronary angioplasty implant and graft
CPT/HCPCS: 36415; 71046; 80053; 80306; 80320; 81000; 82962; 83735; 85007; 85027; 87430; 87804; 93041

== ENCOUNTER 2022-10-07 22:18 | Observation (INO) | payer MEDICARE, OTHER ==
[~2022-10-07] VITALS: Ht 167.7 cm; Wt 68.5 kg
[~2022-10-07 22:18] MED LIST changes: +BENZ100C18 PO; +GUAI1TBM19 PO; -SULF1TAB35 PO; +SULF1TAB38 PO
--- NOTE | 2022-10-07 22:34 | ED Trauma-Multisystem ---
General Stated Complaint: MULTIPLE COMPLAINTS|THROWN OFF OF HORSE Source of Information: Patient Exam Limitations: No Limitations History of Present Illness Date Seen by Provider: Oct 07, 2022 Time Seen by Provider: 22:23 Initial Comments 61-year-old male presents to the emergency department today for right shoulder and right rib pain after he was bucked from his horse at about 830 or 9:00 this evening. He did not hit his head or lose consciousness. He is not on blood thinning medications. He complains of pain in his right anterior shoulder as well as right anterior and posterior ribs. He is not short of breath but states it hurts to take a deep breath. He denies any abdominal pain, neck or back pain. No lower extremity pain and he has been ambulatory without difficulty. All other systems reviewed and negative except documented per HPI. Voice recognition software was used to help create this chart Allergies and Home Medications Allergies Coded Allergies: No Known Drug Allergies (Unverified , 01/03/14) Patient Home Medication List Home Medication List Reviewed: Yes Aspirin (Aspirin Tab Chewable) 81 Mg Chew, 81 MG PO DAILY Prescribed by: TRUDY STEVENS on 07/13/14 1333 Benzonatate (Tessalon Perles) 100 Mg Capsule, 1-2 TAB PO TID Prescribed by: BONIFACIO LOMBARDI on 05/22/18 0448 Cephalexin (Keflex) 500 Mg Capsule, 500 MG PO Q6H Prescribed by: DAVID OPSINA on 03/18/18 2220 Clopidogrel Bisulfate (Clopidogrel) 75 Mg Tablet, 75 MG PO DAILY, (Reported) Entered as Reported by: RADHA HUYNH on 07/12/14 0837 Guaifenesin/Dextromethorphan (Mucinex Dm ER 1,200-60 mg Tab) 1 Each Tbmp.12hr, 1 EACH PO BID Prescribed by: BONIFACIO LOMBARDI on 05/22/18 0448 Insulin Aspart (Novolog Pen) 100 Unit/1 Ml Insuln.pen, 30 UNITS SC DAILY, (R eported) Entered as Reported by: RADHA HUYNH on 01/03/14 1247 Insulin Glargine,Hum.rec.anlog (Lantus Solostar) 300 Unit/3 Ml Insuln.pen, 55-60 UNITS SC HS, (Reported) Entered as Reported by: RADHA HUYNH on 01/03/14 1247 Lisinopril (Lisinopril) 5 Mg Tablet, 5 MG PO DAILY, (Reported) Entered as Reported by: RADHA HUYNH on 07/12/14 0837 Metoprolol Succinate (Metoprolol Succinate) 50 Mg Tab.sr.24h, 50 MG PO DAILY, (Reported) Entered as Reported by: RADHA HUYNH on 07/12/14 0837 Pantoprazole Sod (Protonix Tab) 40 Mg Tab, 40 MG PO DAILY Prescribed by: TRUDY STEVENS on 07/13/14 1330 Simvastatin (Simvastatin) 40 Mg Tablet, 40 MG PO HS, (Reported) Entered as Reported by: RADHA HUYNH on 07/12/14 0837 Sulfamethoxazole/Trimethoprim (Bactrim Ds Tablet) 1 Each Tablet, 1 EACH PO BID Prescribed by: DAVID OSPINA on 03/18/18 2220 Venlafaxine Hcl (Venlafaxine Hcl Er) 150 Mg Cap.sr.24h, 150 MG PO HS, (Reported) Entered as Reported by: RADHA HUYNH on 01/03/14 1032 Review of Systems Review of Systems Constitutional: see HPI Past Qporxuu-Glvukc-Hbzphb Hx Patient Social History Tobacco Use?: Yes Use of E-Cig and/or Vaping dev: No Substance use?: No Alcohol Use?: No Immunizations Up To Date Tetanus Booster (TDap): Unknown PED Vaccines UTD: No Seasonal Allergies Seasonal Allergies: No Past Medical History Surgeries: Yes (CARDIAC CATH--STENT X 1; CERVICAL AND LUMBAR SPINE SURGERY) Cardiac, Coronary Stent, Orthopedic Respiratory: No Cardiac: Yes Coronary Artery Disease, Hypertension, Hypotension Neurological: No Reproductive Disorders: No Gastrointestinal: No Musculoskeletal: Yes Degenerate Disk Disease, Foot Drop, Chronic Back Pain, Fractures Endocrine: Yes (NON-COMPLIANCE IN ALL ASPECTS OF CARE) Diabetes, Insulin dep HEENT: No Cancer: No Psychosocial: Yes Anxiety, Depression Integumentary: No Blood Disorders: No Adverse Reaction/Blood Tranf: No (No transfusion hx.) Family Medical History Diabetes mellitus 19 FATHER, Onset:50's - 60 Myocardial infarction 19 FATHER, Onset:Unknown Parkinson's disease 19 MOTHER No Family History of: Degenerative disc disease CAD Under 55 Years Old Physical Exam Vital Signs Vital Signs - First Documented 10/07/22 22:20 Temp 35.1 Pulse 99 Resp 18 B/P (MAP) 189/113 (138) Pulse Ox 100 O2 Delivery Room Air Height, Weight, BMI Height: 5'10.00" Weight: 170lbs. 0.0oz. [id number]; 26.6 BMI Method:Stated General Appearance: No Apparent Distress, WD/WN Head: No Evidence of Injury Eyes: Bilateral Eye Normal Inspection, Bilateral Eye PERRL, Bilateral Eye EOMI Ears, Nose, Throat: No Evidence of ENT Injury, No Dental Injury Neck: Full Range of Motion, Normal Inspection, Non Tender, Supple Cardiovascular: Regular Rate, Rhythm, No Murmur, Normal Peripheral Pulses Respiratory: Lungs Clear, Normal Breath Sounds, No Accessory Muscle Use, No Respiratory Distress, Other (Tenderness to palpation right lateral chest wall and right posterior chest wall. No crepitus or deformity. He is splinting with respirations secondary to pain.) Gastrointestinal: Normal Bowel Sounds, Non Tender, Soft Back: Normal Inspection, No CVA Tenderness, No Vertebral Tenderness Extremity: Normal Capillary Refill, No Calf Tenderness, Other (Swelling in the mid shaft of clavicle on the right side. There is no. Deformity palpable in this area. Neurovascular and sensory intact right upper extremity. He has no wrist forearm elbow or upper arm pain. There are some mild tenderness about the proximal portion of the right shoulder. No axillary sensation.) Neurologic/Psychiatric: Alert, Oriented x3, No Motor/Sensory Deficits Skin: Warm/Dry, Other (Small abrasion to the right lateral bicep region) Procedures/Interventions Suture Size: 4-0 Progress/Results/Core Measures Results/Orders My Orders Orders - MIGUEL A CELIS DO Shoulder, Right, 3 Views (10/07/22 22:30) Chest Pa/Lat (2 View) (10/07/22 22:30) Fentanyl Inj (Sublimaze Injection) (10/07/22 22:45) Fentanyl Inj (Sublimaze Injection) (10/07/22 22:45) Ed Admission (Communication) (10/07/22 22:56) Medications Given in ED Current Medications Medications Dose Ordered Sig/Jas Route Start Time Stop Time Status Last Admin Dose Admin Fentanyl Citrate 50 mcg ONCE ONCE IVP 10/07/22 22:45 10/07/22 22:46 DC 10/07/22 22:52 50 MCG Vital Signs/I&O 10/07/22 22:20 Temp 35.1 Pulse 99 Resp 18 B/P (MAP) 189/113 (138) Pulse Ox 100 O2 Delivery Room Air Departure Communication (Admissions) Pt is hemodynamically stable. Has R clavicle fx. Likely bruised ribs. He has intractable pain, TBI and is unable to move his right arm 2/2 pain in clavicle. He lives by himself and i dont think he is safe for discharge at this time. Spoke to Dr Blank who accepts admission. Impression Primary Impression: Right clavicle fracture Qualified Codes: S42.021A - Displaced fracture of shaft of right clavicle, initial encounter for closed fracture Additional Impression: Rib pain on right side Disposition: ADMITTED INPATIENT Condition: Stable Departure-Patient Inst. Referrals: PHOENIX SCHMITZ MD (PCP/Family) Primary Care Physician MIGUEL A CELIS DO Oct 07, 2022 22:34
[2022-10-07] MEDS ORDERED: fentaNYL INJ 100 MCG/2 ML AMP IM ONE (22:45)
[2022-10-07] MEDS ORDERED: fentaNYL INJ 100 MCG/2 ML AMP IVP ONE (22:45)
[2022-10-08 00:26] VITALS: BP 161/90
[2022-10-08] MEDS ORDERED: ONDANSETRON 4 MG/2 ML (SDV) Z0FRAN IV PRN ×2 (00:45→06:15)
[2022-10-08 03:19] VITALS: BP 133/85
[2022-10-08] MEDS: fentaNYL INJ 100 MCG/2 ML AMP IV PRN ×3 (03:28→12:15)
[2022-10-08 05:33] LABS: BASOPHILS % (AUTO) 0 % (0-10); EOSINOPHILS # (AUTO) 0.1 10^3/uL (0.0-0.3); EOSINOPHILS % (AUTO) 0 % (0-10); HEMATOCRIT 39 % (40-54); HEMOGLOBIN 14.1 g/dL (13.3-17.7); LYMPHOCYTES % (AUTO) 7 % (12-44); MEAN CORPUSCULAR HEMOGLOBIN 31 pg (25-34); MEAN CORPUSCULAR HGB CONC 36 g/dL (32-36); MEAN CORPUSCULAR VOLUME 87 fL (80-99); MEAN PLATELET VOLUME 10.9 fL (9.0-12.2); MONOCYTES % (AUTO) 8 % (0-12); NEUTROPHILS # (AUTO) 11.6 10^3/uL (1.8-7.8); NEUTROPHILS % (AUTO) 84 % (42-75); PLATELET COUNT 143 10^3/uL (130-400); WHITE BLOOD COUNT 13.8 10^3/uL (4.3-11.0)
[2022-10-08 05:51] LABS: CALCIUM 8.8 MG/DL (8.5-10.1); CREATININE SERUM 0.82 MG/DL (0.60-1.30); POTASSIUM 3.7 MMOL/L (3.6-5.0)
--- NOTE | 2022-10-08 06:06 | History & Physical ---
History of Present Illness HPI/Chief Complaint Chief complaint: Found down in field by neighbor HPI: This is a 61-year-old male who has a history of diabetes but noncompliant with medical care and meds who presented to the ER with severe shoulder pain and rib pain after being found down in the field at night after a fall. Apparently he was riding a horse. Dr. Ramírez evaluated him from a trauma aspect and ordered CT scan of the cervical spine and found no evidence of any spine fracture but history of severe spinal disease with subsequent foot drop since that surgery. Due to the foot drop he does have difficulty walking without falling down. Source: patient, RN/MD, old records Exam Limitations: clinical condition Date Seen 10/08/22 Time Seen by a Provider: 10:00 Attending Physician Trisha Campbell MD PCP Admitting Physician: Beatrice Aguirre DO Attending Physician: Beatrice Aguirre DO Referring Physician Date of Admission Oct 07, 2022 at 23:53 Home Medications & Allergies Home Medications Reviewed patient Home Medication Reconciliation performed by pharmacy medication reconciliations indoor plant technician and/or nursing. Patients Allergies have been reviewed. Allergies Allergies Coded Allergies No Known Drug Allergies (Unverified01/03/14) Past Kuovfrt-Xoxrds-Gvjslh Hx Past Med/Social Hx: Reviewed Nursing Past Med/Soc Hx, Reviewed and Corrections made Patient Social History Marrital Status: single Employed/Student: employed Alcohol Use: Occasionally Uses Smoking Status: Former Smoker Recent Hopitalizations: No Immunizations Up To Date Tetanus Booster (TDap): Unknown Pediatric: No Seasonal Allergies Seasonal Allergies: No Past Medical History Surgeries: Cardiac, Coronary Stent, Orthopedic Cardiac: Coronary Artery Disease, Hypertension, Hypotension Reproductive: No Musculoskeletal: Degenerate Disk Disease, Foot Drop, Chronic Back Pain, F ractures Endocrine: Diabetes, Insulin dep Psychosocial: Anxiety, Depression History of Blood Disorders: No Adverse Reaction to Blood Grey: No (No transfusion hx.) Family History Diabetes mellitus 19 FATHER, Onset:50's - 60 Myocardial infarction 19 FATHER, Onset:Unknown Parkinson's disease 19 MOTHER No Family History of: Degenerative disc disease CAD Under 55 Years Old Review of Systems Constitutional: see HPI, malaise, weakness EENTM: no symptoms reported Respiratory: no symptoms reported Cardiovascular: no symptoms reported Gastrointestinal: no symptoms reported Genitourinary: no symptoms reported Musculoskeletal: back pain, muscle pain, muscle stiffness, muscle cramps Skin: no symptoms reported Psychiatric/Neurological: No Symptoms Reported All Other Systems Reviewed Negative Unless Noted: Yes Physical Exam Physical Exam Vital Signs Vital Signs - First Documented 10/07/22 10/08/22 22:20 07:49 Temp 35.1 Pulse 99 Resp 18 B/P (MAP) 189/113 (138) Pulse Ox 100 O2 Delivery Room Air FiO2 21 Capillary Refill : Less Than 3 Seconds Height, Weight, BMI Height: 5'10.00" Weight: 170lbs. 0.0oz. 77.040283mk; 24.35 BMI Method:Stated General Appearance: No Apparent Distress, WD/WN Eyes: Bilateral Eye Normal Inspection, Bilateral Eye PERRL, Bilateral Eye EOMI Neck: Full Range of Motion, Normal Inspection, Non Tender, Supple Respiratory: Lungs Clear, Normal Breath Sounds, No Accessory Muscle Use, No Respiratory Distress, Other (Tenderness to palpation right lateral chest wall and right posterior chest wall. No crepitus or deformity. He is splinting with respirations secondary to pain.) Cardiovascular: Regular Rate, Rhythm, No Murmur, Normal Peripheral Pulses Gastrointestinal: Normal Bowel Sounds, Non Tender, Soft Back: Normal Inspection, No CVA Tenderness, No Vertebral Tenderness Extremity: Normal Capillary Refill, No Calf Tenderness, Other (Swelling in the mid shaft of clavicle on the right side. There is no. Deformity palpable in this area. Neurovascular and sensory intact right upper extremity. He has no wrist forearm elbow or upper arm pain. There are some mild tenderness about the proximal portion of the right shoulder. No axillary sensation.) Neurologic/Psychiatric: Alert, Oriented x3, No Motor/Sensory Deficits Skin: Warm/Dry, Other (Small abrasion to the right lateral bicep region) Results Results/Procedures Labs Laboratory Tests 10/08/22 05:05 Patient resulted labs reviewed. Assessment/Plan Admission Diagnosis Assessment: Fall and found down at night Right clavicle fracture Bruised ribs History of TBI Cervical and lumbar spineCervical and lumbar spine with subsequent foot drop Multiple falls in the past CAD with stent in the past Hyperlipidemia Hypertension Diabetes [id number] Noncompliance with medical treatment Plan: Supportive care Pain control Inpatient rehab eval Admission Status: Observation BEATRICE AGUIRRE DO Oct 08, 2022 06:06
[2022-10-08] MEDS ORDERED: ANTACID SUSP 30 ML UDC (MYLANTA) PO PRN (06:15)
[2022-10-08] MEDS ORDERED: diphenhydrAMINE 50 MG/ML INJ (BENADRYL) IVP PRN (06:15)
[2022-10-08] MEDS ORDERED: MELATONIN 3 MG TABLET PO PRN (06:15)
[2022-10-08] MEDS ORDERED: diphenhydrAMINE 25 MG TAB (BENADRYL) PO PRN (06:15)
[2022-10-08] MEDS ORDERED: polyethylene glycoL POWDER 17 GM (MIRALAX) PACK PO PRN (06:15)
[2022-10-08] MEDS ORDERED: HYDROmorphone 2 MG/ML VIAL (DILAUDID) IV PRN (06:15)
[2022-10-08] MEDS ORDERED: LACTULOSE SYRUP 10GM/15ML (ENULOSE) 30ML UDC PO PRN (06:15)
[2022-10-08] MEDS ORDERED: MILK OF MAGNESIA 400 MG/5 ML 30 ML UDC PO PRN (06:15)
[2022-10-08] MEDS ORDERED: NS IV 1000 ML 1,000 ML IV SCH (06:15)
[2022-10-08] MEDS ORDERED: ONDANSETRON 4 MG (ZOFRAN) ORAL DISSOLVE TAB PO PRN (06:15)
[2022-10-08] MEDS ORDERED: ENOXAPARIN 40 MG/0.4 ML (LOVENOX) SYR SC SCH (06:15)
[2022-10-08] MEDS ORDERED: ACETAMINOPHEN 325 MG TABLET PO PRN (06:15)
[2022-10-08] MEDS ORDERED: CALCIUM CARBONATE 500 MG (TUMS) TAB.CHEW PO PRN (06:15)
[2022-10-08] MEDS ORDERED: BISACODYL 10 MG SUPP (DULCOLAX) PR PRN (06:15)
[2022-10-08 06:18] LABS: ALBUMIN 4.1 GM/DL (3.2-4.5); EOSINOPHILS % (MANUAL) 1 %; LYMPHOCYTES % (MANUAL) 13 %; MONOCYTES % (MANUAL) 9 %; NEUTROPHILS % (MANUAL) 77 %; RBC MORPH NORMAL
[2022-10-08 06:19] LABS: POTASSIUM 3.7 MMOL/L (3.6-5.0)
[2022-10-08 06:20] LABS: CALCIUM 8.8 MG/DL (8.5-10.1)
[2022-10-08 06:21] LABS: TOTAL PROTEIN 6.7 GM/DL (6.4-8.2)
[2022-10-08 06:23] LABS: BILIRUBIN,TOTAL 0.8 MG/DL (0.1-1.0)
[2022-10-08 06:25] LABS: CREATININE SERUM 0.81 MG/DL (0.60-1.30)
[2022-10-08] MEDS: inSUlin ASPART (NovoLOG) 1 UNIT/0.01 ML (CHARGE PER UNIT) SC SCH ×2 (06:27→12:18)
--- NOTE | 2022-10-08 07:40 | Diagnostic Imaging Report ---
HISTORY: Right shoulder pain after fall from horse TECHNIQUE: 3 views of the right shoulder COMPARISON: 02/22/2017 FINDINGS: There is a fracture of the right mid clavicle with moderate inferior displacement of the distal fragment. There are moderate degenerative changes at the acromioclavicular joint and at the glenohumeral joint. Deformity at the glenoid may be from degenerative change or remote injury. There is chronic deformity of the left clavicle from remote injury. There is mild deformity of the right 3rd rib which could represent an acute fracture. IMPRESSION: 1. Displaced fracture of the right mid clavicle. 2. Mild deformity of the right 3rd rib, could be an acute fracture as well. 3. Degenerative changes in the right shoulder with deformity of the glenoid which is thought to be from remote trauma. Dictated by: Dictated on workstation # [id number]
--- NOTE | 2022-10-08 07:41 | Diagnostic Imaging Report ---
HISTORY: Fall from horse, right shoulder pain TECHNIQUE: 2 views of the chest COMPARISON: 05/22/2018 FINDINGS: Lung volumes are normal. No consolidation is seen. There is no pleural effusion or pneumothorax. The cardiac silhouette is normal in size. There are mild deformities of the right 3rd through 6th ribs, concerning for fractures. There is a displaced right mid clavicle fracture. There is an old left mid clavicle posttraumatic deformity. IMPRESSION: 1. Right mid clavicle fracture. Suspected acute fractures of the right 3rd through 6th ribs. No acute pulmonary abnormality. Dictated by: Dictated on workstation # [id number]
[2022-10-08 07:49] VITALS: BP 133/85
[2022-10-08] MEDS ORDERED: RT-ALBUTEROL SULF 2.5 MG/3 ML PRE-MIX VIAL INH PRN (08:00)
[2022-10-08 08:16] VITALS: BP 150/85
[2022-10-08] MEDS ORDERED: SENNOSIDES 8.6 MG (SENOKOT) TAB PO SCH (09:00)
[2022-10-08] MEDS ORDERED: DOCUSATE SODIUM 100 MG (COLACE) CAP PO SCH (09:00)
--- NOTE | 2022-10-08 09:28 | Diagnostic Imaging Report ---
PROCEDURE: CT head and CT cervical spine without contrast. TECHNIQUE: Multiple contiguous axial images were obtained through the brain and cervical spine without the use of intravenous contrast. Sagittal and coronal reformations through the cervical spine were then performed. Auto Exposure Controls were utilized during the CT exam to meet ALARA standards for radiation dose reduction. INDICATION: Fall from horse. COMPARISON: No prior head CT. The exam is correlated with a cervical MRI performed in 2015. FINDINGS: HEAD: There is no intracranial hemorrhage, hydrocephalus, cerebral edema, mass, or mass effect. No abnormal extra-axial fluid collection. There is no calvarial fracture deformity. No hemo-sinus. No pneumocephalus. No evidence for elevated intracerebral pressures. CERVICAL SPINE: Laminectomies at C5-C6 with 360 fusion from C5 through C7 are unchanged when correlated with the previous MR. The alignment is stable and anatomic. There is some chronic ossified thickening of the posterior longitudinal ligament at the levels of solid fusion. This may also be some bridging posterior syndesmophytes and osteophytes. No fracture. No paraspinal hemorrhage. No hardware disruption. No suspicious sharon-screw lucencies to suggest loosening. The craniocervical relationship appears unremarkable. The central skull base appears intact. IMPRESSION: CT HEAD: No hemorrhage, fracture, or acute abnormality. CT CERVICAL SPINE: Intact fusion and decompression with no cervical fracture or traumatic malalignment. Dictated by: Dictated on workstation # [id number]
--- NOTE | 2022-10-08 10:22 | Physical Therapy Evaluation ---
PT Evaluation-General Medical Diagnosis Admission Date Oct 07, 2022 at 23:53 Medical Diagnosis: R clavicle fx, Rib pain Onset Date: Oct 07, 2022 Therapy Diagnosis Therapy Diagnosis: Impaired mobility Height/Weight Height (Feet): 5 Height (Inches): 10.00 Weight (Pounds): 170 Weight (Ounces): 0.0 Precautions Precautions/Isolations: Standard Precautions Referral Reason for Referral: Evaluation/Treatment Medical History Pertinent Medical History: CAD, DM Additional Medical History Previous lumbar and cervical surgery with resultant foot drop Reviewed History: Yes Social History Home: Single Level Current Living Status: Alone Prior Prior Level of Function SCALE: Activities may be completed with or without assistive devices. 4-Tjahabbqki-xvhuipg completes the activity by him/herself with no assistance fr om a helper. 5-Set-up or Clean-up Assistance-helper sets up or cleans up; patient completes activity. Lynch assists only prior to or following the activity. 4-Supervision or Touching Assistance-helper provides verbal cues and/or touching/steadying and/or contact guard assistance as patient completes activity. Assistance may be provided throughout the activity or intermittently. 3-Partial/Moderate Assistance-helper does LESS THAN HALF the effort. Lynch lifts, holds or supports trunk or limbs, but provides less than half the effort. 2-Substantial/Maximal Assistance-helper does MORE THAN HALF the effort. Lynch lifts or holds trunk or limbs and provides more than half the effort. 2-Uwcoegmro-onmanl does ALL the effort. Patient does none of the effort to complete the activity. Or, the assistance of 2 or more helpers is required for the patient to complete the activity. If activity was not attempted, code reason: 7-Patient Refused. 9-Not Applicable-not attempted and the patient did not perform the activity before the current illness, exacerbation or injury. 10-Not Attempted due to Environmental Limitations-(lack of equipment, weather restraints, etc.). 88-Not Attempted due to Medical Conditions or Safety Concerns. Bed Mobility: 6 Transfers (B,C,W/C): 6 Gait: 6 Stairs: 6 Pt reports he has multiple falls due to his foot drop. PT Evaluation-Current Subjective Pt thrown from his horse 10/07 with resultant clavicle and rib fx. Pt has impaired mobility secondary to pain and disuse of the right UE. Objective Patient Orientation: Normal For Age Attachments: IV ROM/Strength ROM Upper Extremities (L) UE is WNL Strength Lower Extremities Gross 4/5 throughout with 2/5 R ankle DF Transfers Roll Left to Right (QC): 4 Sit to Lying (QC): 4 Lying to Sitting/Side of Bed(Q: 4 Sit to Stand (QC): 6 Chair/Dae-ow-Hihra Xfer(QC): 4 needed min assist to roll and come to sitting at side of bed. Pain limiting strength. Needed steadying assist upon initial standing. Gait Walk 150 ft (QC): 4 Distance: 150 Gait Assistive Device: Handheld Assist Comments/Gait Description Unsteady gait with ataxia. Used hand held assist for Min balance support. High step right foot secondary to foot drop. Assessment/Needs Pt has impaired mobility secondary to fx, weakness, and pre-existing LE fu nctional loss. Pt will benefit from PT to restore prior level of function. Rehab Potential: Good PT Talent Acquisition Relationship Manager Goals Talent Acquisition Relationship Manager Goals PT Talent Acquisition Relationship Manager Goals Time Frame: Oct 15, 2022 Roll Left & Right (QC): 6 Sit to Lying (QC): 6 Lying-Sitting on Side/Bed(QC): 6 Sit to Stand (QC): 6 Chair/Vpv-oy-Famxw Xfer(QC): 6 Walk 150 ft (QC): 6 PT Plan Problem List Problem List: Activity Tolerance, Functional Strength, Balance, Gait Treatment/Plan Treatment Plan: Continue Plan of Care Treatment Plan: Functional Strength, Gait Treatment Duration: Oct 15, 2022 Frequency: 6 times per week Patient and/or Family Agrees t: Yes Discharge Recommendations Therapy Discharge Recommendati: Post Acute PT Barriers to Progress chronic back pain with old foot drop Time Time In: 1000 Time Out: 1020 DATE: Oct 08, 2022 Total Billed Treatment Time: 20 Total Billed Treatment visit, evaluation moderate complexity 20 min ANDIE WILHELM PT Oct 08, 2022 10:22
[2022-10-08] MEDS ORDERED: inSUlin ASPART (NovoLOG) 1 UNIT/0.01 ML (CHARGE PER UNIT) SC SCH ×2 (11:00→16:00)
--- NOTE | 2022-10-08 11:51 | Occupational Therapy Eval ---
OT Evaluation-General/PLF Medical Diagnosis Admission Date Oct 07, 2022 at 23:53 Medical Diagnosis: R clavicle fx, Rib pain Onset Date: Oct 07, 2022 Therapy Diagnosis Therapy Diagnosis: Weakness, Decreased ADL skills Height/Weight Height (Feet): 5 Height (Inches): 10.00 Weight (Pounds): 170 Weight (Ounces): 0.0 Precautions Precautions/Isolations: Standard Precautions Weight Bear Status Pt. has right clavicle fx. Will be non-weight bearing in right UE until physician releases. Referral Physician: Dr. Blank Referral Reason: Activity Tolerance, Self Care, Evaluation/Treatment, Strengthening/ROM Medical History Pertinent Medical History: CAD, DM, HTN Additional Medical History cardiac stents, c-spine lumbar surgeries, DDD, foot drop Current History Pt. states that he was bucked off of his horse. He reports that he had an SCI approximately 8 years ago, and was already having some difficulty with "getting around." Pt. does not report how he obtained SCI. Reviewed History: Yes Social History Home: Single Level Current Living Status: Alone Entry Into Home: Stairs With Railing Steps Into Home: 3 ADL-Prior Level of Function SCALE: Activities may be completed with or without assistive devices. 1-Myydmhnikl-jgnfhpd completes the activity by him/herself with no assistance from a helper. 5-Set-up or Clean-up Assistance-helper sets up or cleans up; patient completes activity. Panther Burn assists only prior to or following the activity. 4-Supervision or Touching Assistance-helper provides verbal cues and/or touching/steadying and/or contact guard assistance as patient completes activity. Assistance may be provided throughout the activity or intermittently. 3-Partial/Moderate Assistance-helper does LESS THAN HALF the effort. Panther Burn lifts, holds or supports trunk or limbs, but provides less than half the effort. 2-Substantial/Maximal Assistance-helper does MORE THAN HALF the effort. Panther Burn lifts or holds trunk or limbs and provides more than half the effort. 1-Xezkatrnw-yqzdxt does ALL the effort. Patient does none of the effort to complete the activity. Or, the assistance of 2 or more helpers is required for the patient to complete the activity. If activity was not attempted, code reason: 7-Patient Refused. 9-Not Applicable-not attempted and the patient did not perform the activity before the current illness, exacerbation or injury. 10-Not Attempted due to Environmental Limitations-(lack of equipment, weather restraints, etc.). 88-Not Attempted due to Medical Conditions or Safety Concerns. ADL PLOF Comments Pt. reports that he does live alone but states, "I don't like living alone." Pt. reports that he was independent with ADLs prior to this fall. He was bathing/dressing self. He states that he does have a walker and cane, but does not use them. Pt. indicates that due to having an old spinal cord injury he has already had difficulty with ambulation. He is unable to elaborate on this. Self Care: Unknown Functional Cognition: Unknown DME/Equipment: Tub/Shower OT Current Status Subjective Pt. winces with pain but does not report pain level. He indicates that his right side is painful, at rib and clavicle area. OT assists with positioning and placing more pillows for support. Pt. is in arm sling. Appearance Pt. is up in chair. He is alert and agrees to work with OT. Mental Status/Objective Patient Orientation: Person, Place Current Upper Extremity ROM Pt. unable to move right shoulder due to clavicle fx. OT educates pt. that physician will have to state protocol for this. However, pt. will be able to mo ve right elbow and wrist to assist with donning a shirt when time comes. ADL-Treatment Eating (QC): 6 On/Off Footwear (QC): 2 Other Treatments Pt. agrees to work with OT. OT asks him how he gets his foot wear on/off. He attempts to pull them off with the other foot. He is unable to bend knee to bring foot up to him. He reports that he had a system at home due to having an SCI. He is unable to do this at facility due to not having use of right UE. Pt. is able to stand at bedside, but requires increased time. He stands with SBA and is able to stand with no LOB for approximately 1 minute. Pt. states that when he stands at home "its a production." Pt. sits back in chair and all needs are met. OT places another pillow under right UE/sling for better positioning. Pt. reports that this feels good. Declines elevating feet or blanket. Pt. with call light. All needs met. Education OT Patient Education: Correct positioning, Modified ADL techniques, Purpose of tx/functional activities, Reviewed precautions, Rehab process, Transfer techniques Teaching Recipient: Patient Teaching Methods: Demonstration, Discussion Response to Teaching: Verbalize Understanding, Return Demonstration OT Short Term Goals Short Term Goals Time Frame: Oct 15, 2022 Eatin Oral hygiene: 5 Toileting hygiene: 3 (Mod assist with AE as needed.) Shower/bathe self: 3 (Mod assist with AE as needed.) Upper body dressin (Min assist to don shirt/sling.) Lower body dressin (Mod assist with AE as needed.) Putting on/taking off footwear: 3 (Mod with AE) OT Fur Finisher Seamstress Goals Residential Goals Time Frame: Oct 29, 2022 Eating (QC): 6 Oral Hygiene (QC): 6 Toileting Hygiene (QC): 6 Shower/Bathe Self (QC): 6 (With AE as needed.) Upper Body Dressing (QC): 6 Lower Body Dressing (QC): 6 (With AE) On/Off Footwear (QC): 6 (With AE) Additional Goals: 1-Demonstrate ADL Tasks, 2-Verbalize Understanding, 3- ImproveStrength/Tesfaye 1=Demonstrate adherence to instructed precautions during ADL tasks. 2=Patient will verbalize/demonstrate understanding of assistive devices/modifications for ADL. 3=Patient will improve strength/tolerance for activity to enable patient to perform ADL's. OT Education/Plan Problem List/Assessment Assessment: Decreased Activ Tolerance, Decreased UE Strength, Impaired I ADL's, Impaired Self-Care Skills, Restricted Funct UE ROM Discharge Recommendations Plan/Recommendations: Continue POC Therapy Discharge Recommendati: Post Acute OT Equpiment Recommendations-D/C: Hip Kit Patient/Family Goals Pt. would benefit from continued OT services to increase independence prior to discharge home. Treatment Plan/Plan of Care Treatment,Training & Education: Yes Patient would benefit from OT for education, treatment and training to promote independence in ADL's, mobility, safety and/or upper extremity function for ADL's. Plan of Care: ADL Retraining, Functional Mobility, UE Funct Exercise/Act Treatment Duration: Oct 29, 2022 Frequency: 3 times per week (3-5x/week) Estimated Hrs Per Day: .25 hour per day Agreement: Yes Rehab Potential: Good Time Start Time: 10:28 Stop Time: 10:40 DATE: Oct 08, 2022 Total Time Billed (hr/min): 12 Billed Treatment Time 1, JUNG FINLEY OT Oct 08, 2022 11:51
--- NOTE | 2022-10-08 11:51 | Consultation - Surgery ---
History of Present Illness History of Present Illness Patient Consulted On(rikki/time) 10/08/22 08:15 Date Seen by Provider: Oct 08, 2022 Time Seen by Provider: 08:15 History of Present Illness Consult requested by Dr. Blank for fall off of a horse. Patient 61-year-old male who was riding a horse when he fell off it landing on his right shoulder striking the ground. He says that he did not hit his head. He did not have any loss of consciousness. He is having significant pain noted to the right shoulder area so he was able to call his neighbor and was helped to the get services in the emergency department. Patient has history of cervical fusions which he does not think he has any significant neck pain at this time. He has no abdominal pain. He has no numbness or tingling to his extremities. Patient pain is moderate in the right shoulder without any significant radiation. He had a chest x-ray demonstrating a right clavicle fracture mildly displaced and possible right rib fractures he also had a shoulder x-ray 1. Displaced fracture of the right mid clavicle. 2. Mild deformity of the right 3rd rib, could be an acute fracture as well. 3. Degenerative changes in the right shoulder with deformity of the glenoid which is thought to be from remote trauma. Allergies and Home Medications Allergies Coded Allergies: No Known Drug Allergies (Unverified , 01/03/14) Patient Home Medication List Home Medication List Reviewed: Yes No Active Prescriptions or Reported Meds Past Lptshsi-Scejfh-Mtqklu Hx Patient Social History Recent Hopitalizations: No Alcohol Use?: No Immunizations Up To Date Tetanus Booster (TDap): Unknown PED Vaccines UTD: No Seasonal Allergies Seasonal Allergies: No Surgeries History of Surgeries: Yes (CARDIAC CATH--STENT X 1; CERVICAL AND LUMBAR SPINE SURGERY) Surgeries: Cardiac, Coronary Stent, Orthopedic Respiratory History of Respiratory Disorde: No Cardiovascular History of Cardiac Disorders: Yes Cardiac Disorders: Coronary Artery Disease, Hypertension, Hypotension Neurological History of Neurological Disord: No Reproductive System Hx Reproductive Disorders: No Gastrointestinal History of Gastrointestinal Di: No Musculoskeletal History of Musculoskeletal Dis: Yes Musculoskeletal Disorders: Degenerate Disk Disease, Foot Drop, Chronic Back Pain, Fractures Endocrine History of Endocrine Disorders: Yes (NON-COMPLIANCE IN ALL ASPECTS OF CARE) Endocrine Disorders: Diabetes, Insulin dep HEENT History of HEENT Disorders: No Cancer History of Cancer: No Psychosocial History of Psychiatric Problem: Yes Behavioral Health Disorders: Anxiety, Depression Integumentary History of Skin or Integumenta: No Blood Transfusions History of Blood Disorders: No Adverse Reaction to a Blood Tr: No (No transfusion hx.) Reviewed Nursing Assessment Reviewed/Agree w Nursing PMH: Yes Family Medical History Significant Family History: CAD Under 55 Years Old Family Medial History: Diabetes mellitus 19 FATHER, Onset:50's - 60 Myocardial infarction 19 FATHER, Onset:Unknown Parkinson's disease 19 MOTHER No Family History of: Degenerative disc disease Review of Systems-General Constitutional: No chills, No diaphoresis EENTM: No blurred vision, No double vision Respiratory: No cough, No dyspnea on exertion, No short of breath Cardiovascular: chest pain (Right shoulder); No palpitations Gastrointestinal: No nausea, No vomiting Genitourinary: No decreased output, No discharge Musculoskeletal: No back pain; joint pain (Shoulderright) Skin: No change in color, No change in hair/nails Psychiatric/Neurological: Denies Anxiety, Denies Depressed, Denies Emotional Problems All Other Systems Reviewed Negative Unless Noted: Yes (Negative excepted noted.) Physical Exam-General Problems Physical Exam Vital Signs Vital Signs - First Documented 10/07/22 10/08/22 22:20 07:49 Temp 35.1 Pulse 99 Resp 18 B/P (MAP) 189/113 (138) Pulse Ox 100 O2 Delivery Room Air FiO2 21 Capillary Refill : Less Than 3 Seconds General Appearance: WD/WN, no apparent distress HEENT: PERRL/EOMI, normal ENT inspection, other Neck: other (Slight tenderness with flexion and extension of the cervical spine.) Respiratory: no respiratory distress, no accessory muscle use, other (Right anterior chest wall and shoulder tenderness and swelling with bruising) Cardiovascular: regular rate, rhythm, no JVD Gastrointestinal: non tender, soft Rectal: deferred Back: normal inspection, no CVA tenderness Extremities: non-tender, normal inspection Neurologic/Psychiatric: alert, normal mood/affect, oriented x 3 Skin: normal color, warm/dry Lymphatic: no adenopathy Data Review Labs Laboratory Tests 10/08/22 05:05: White Blood Count 13.8H, Red Blood Count 4.52, Hemoglobin 14.1, Hematocrit 39L, Mean Corpuscular Volume 87, Mean Corpuscular Hemoglobin 31, Mean Corpuscular Hemoglobin Concent 36, Red Cell Distribution Width 11.9, Platelet Count 143, Mean Platelet Volume 10.9, Immature Granulocyte % (Auto) 1, Neutrophils (%) (Auto) 84H, Lymphocytes (%) (Auto) 7L, Monocytes (%) (Auto) 8, Eosinophils (%) (Auto) 0, Basophils (%) (Auto) 0, Neutrophils # (Auto) 11.6H, Lymphocytes # (Auto) 1.0, Monocytes # (Auto) 1.0, Eosinophils # (Auto) 0.1, Basophils # (Auto) 0.0, Immature Granulocyte # (Auto) 0.1, Neutrophils % (Manual) 77, Lymphocytes % (Manual) 13, Monocytes % (Manual) 9, Eosinophils % (Manual) 1, Blood Morphology Comment NORMAL, Sodium Level 132L, Potassium Level 3.7, Chloride Level 99, Carbon Dioxide Level 22, Anion Gap 11, Blood Urea Nitrogen 15, Creatinine 0.81, Estimat Glomerular Filtration Rate 102, BUN/Creatinine Ratio 19, Glucose Level 298H, Calcium Level 8.8, Corrected Calcium 8.7, Total Bilirubin 0.8, Aspartate Amino Transf (AST/SGOT) 32, Alanine Aminotransferase (ALT/SGPT) 27, Alkaline Phosphatase 97, Total Protein 6.7, Albumin 4.1 10/08/22 11:05: Glucometer 358H Assessment/Plan Assessment/Plan Assessment/Plan Fall off of a horse Right displaced clavicle fracture Right rib fractures likely 3-6 Patient to be provided pain control. His right arm is in a sling. May need orthopedic follow-up. Patient does have some cervical tenderness on exam so a collar is placed and will get CT of the head and C-spine for further evaluation as this time. CT head and C-spine did not have any acute injury so the collar was removed. Consider inpatient rehab. Work on breathing techniques so does not develop JALYN BRAMBILA DO Oct 08, 2022 11:51
[2022-10-08 12:08] VITALS: BP 141/85
--- NOTE | 2022-10-08 13:48 | Discharge Summary ---
Diagnosis/Chief Complaint Date of Admission Oct 07, 2022 at 23:53 Date of Discharge Discharge Date: Oct 08, 2022 Discharge Diagnosis Right clavicle fracture Diabetes Hypertension CAD Discharge Summary Discharge Physical Examination Allergies: Coded Allergies: No Known Drug Allergies (Unverified , 01/03/14) Vitals & I&Os Vital Signs Date Time Temp Pulse Resp B/P (MAP) Pulse Ox O2 Delivery O2 Flow Rate FiO2 10/08/22 14:35 36.0 82 19 141/85 97 Room Air 10/08/22 07:49 21 Hospital Course Was the Problem List Reviewed?: Yes See HPI Moved to inpatient rehab Labs (last 24 hrs) Laboratory Tests 10/08/22 05:05: White Blood Count 13.8H, Red Blood Count 4.52, Hemoglobin 14.1, Hematocrit 39L, Mean Corpuscular Volume 87, Mean Corpuscular Hemoglobin 31, Mean Corpuscular Hemoglobin Concent 36, Red Cell Distribution Width 11.9, Platelet Count 143, Mean Platelet Volume 10.9, Immature Granulocyte % (Auto) 1, Neutrophils (%) (Auto) 84H, Lymphocytes (%) (Auto) 7L, Monocytes (%) (Auto) 8, Eosinophils (%) (Auto) 0, Basophils (%) (Auto) 0, Neutrophils # (Auto) 11.6H, Lymphocytes # (Auto) 1.0, Monocytes # (Auto) 1.0, Eosinophils # (Auto) 0.1, Basophils # (Auto) 0.0, Immature Granulocyte # (Auto) 0.1, Neutrophils % (Manual) 77, Lymphocytes % (Manual) 13, Monocytes % (Manual) 9, Eosinophils % (Manual) 1, Blood Morphology Comment NORMAL, Sodium Level 132L, Potassium Level 3.7, Chloride Level 99, Carbon Dioxide Level 22, Anion Gap 11, Blood Urea Nitrogen 15, Creatinine 0.81, Estimat Glomerular Filtration Rate 102, BUN/Creatinine Ratio 19, Glucose Level 298H, Mean Blood Glucose 378H, Hemoglobin A1c 14.8H, Calcium Level 8.8, Co rrected Calcium 8.7, Total Bilirubin 0.8, Aspartate Amino Transf (AST/SGOT) 32, Alanine Aminotransferase (ALT/SGPT) 27, Alkaline Phosphatase 97, Total Protein 6.7, Albumin 4.1, Vitamin B12 Level 872, Thyroid Stimulating Hormone (TSH) 1.17 10/08/22 11:05: Glucometer 358H 10/08/22 15:55: Glucometer 210H Pending Labs Laboratory Tests 10/08/22 05:05: White Blood Count 13.8, Red Blood Count 4.52, Hemoglobin 14.1, Hematocrit 39, Mean Corpuscular Volume 87, Mean Corpuscular Hemoglobin 31, Mean Corpuscular Hemoglobin Concent 36, Red Cell Distribution Width 11.9, Platelet Count 143, Mean Platelet Volume 10.9, Immature Granulocyte % (Auto) 1, Neutrophils (%) (Auto) 84, Lymphocytes (%) (Auto) 7, Monocytes (%) (Auto) 8, Eosinophils (%) (Auto) 0, Basophils (%) (Auto) 0, Neutrophils # (Auto) 11.6, Lymphocytes # (Auto) 1.0, Monocytes # (Auto) 1.0, Eosinophils # (Auto) 0.1, Basophils # (Auto) 0.0, Immature Granulocyte # (Auto) 0.1, Neutrophils % (Manual) 77, Lymphocytes % (Manual) 13, Monocytes % (Manual) 9, Eosinophils % (Manual) 1, Blood Morphology Comment NORMAL, Sodium Level 132, Potassium Level 3.7, Chloride Level 99, Carbon Dioxide Level 22, Anion Gap 11, Blood Urea Nitrogen 15, Creatinine 0.81, Estimat Glomerular Filtration Rate 102, BUN/Creatinine Ratio 19, Glucose Level 298, Mean Blood Glucose 378, Hemoglobin A1c 14.8, Calcium Level 8.8, Corrected Calcium 8.7, Total Bilirubin 0.8, Aspartate Amino Transf (AST/SGOT) 32, Alanine Aminotransferase (ALT/SGPT) 27, Alkaline Phosphatase 97, Total Protein 6.7, Albumin 4.1, Vitamin B12 Level 872, Thyroid Stimulating Hormone (TSH) 1.17 10/08/22 11:05: Glucometer 358 10/08/22 15:55: Glucometer 210 Discharge Home Medications: Active Scripts Active No Active Prescriptions or Reported Medications Instructions to patient/family Please see electronic discharge instructions given to patient. TOM AGUIRRE DO Oct 08, 2022 13:48
[2022-10-08 14:35] VITALS: BP 141/85
== END 2022-10-08 13:46 ==
LOC: EDUNIT# 22:18 → ER 22:19 → 4TH 23:53
PROVIDERS: ADMIT Internal Medicine; ATTEND Internal Medicine
DX: S42.001A Fracture of unspecified part of right clavicle, initial encounter for closed fracture (principal); S22.31XA Fracture of one rib, right side, initial encounter for closed fracture; M24.111 Other articular cartilage disorders, right shoulder; M21.379 Foot drop, unspecified foot; I25.10 Atherosclerotic heart disease of native coronary artery without angina pectoris; E11.9 Type 2 diabetes mellitus without complications; I10 Essential (primary) hypertension; R29.6 Repeated falls; E78.5 Hyperlipidemia, unspecified; V80.010A Animal-rider injured by fall from or being thrown from horse in noncollision accident, initial encounter; Y93.52 Activity, horseback riding; Z91.199 Patient's noncompliance with other medical treatment and regimen due to unspecified reason; Z87.891 Personal history of nicotine dependence; Z95.5 Presence of coronary angioplasty implant and graft; Z79.4 Long term (current) use of insulin
CPT/HCPCS: 70450; 71046; 72125; 73030; 80048; 80053; 82607; 82947; 83036; 84443; 85007; 85027; 96372; 96376; 97162; 97166; 99284; G0378; 36415

== ENCOUNTER 2022-10-08 13:48 | Inpatient (IN) | payer MEDICARE ==
[~2022-10-08] VITALS: Ht 167.7 cm; Wt 68.5 kg
--- NOTE | 2022-10-08 13:57 | PM&R Post Admission Assessment ---
PM&R Date of Visit: Oct 08, 2022 Time of Visit: 14:30 History of Present Illness Chief complaint: Debility from right clavicle fracture and multiple falls with foot drop HPI: This is a 61-year-old male with a history of CAD previous stent diabetes with noncompliance of medical treatment who was found down in a field the night before after falling from a horse and suffering a right clavicle fracture and bruised ribs. Dr. Ramírez was consulted and evaluated CT scan for evaluation of any spinal fractures. He does have a history of multiple cervical spine and lumbar spine surgeries resulting in foot drop. Foot drop places him at risk for multiple falls. Pain control will be initiated with Dilaudid and oxycodone and PT and OT will focus on use of ambulatory devices in order to decrease falls.He also has a history of a traumatic brain injury which results in emotional problems and decreased independence at home. Past Vsuphgs-Vahkgt-Rbwzyg Hx Past Med/Social Hx: Reviewed Nursing Past Med/Soc Hx, Reviewed and Corrections made Patient Social History Marrital Status: single Employed/Student: employed Alcohol Use: Occasionally Uses Smoking Status: Former Smoker Recent Hopitalizations: No Immunizations Up To Date Tetanus Booster (TDap): Unknown Pediatric: No Seasonal Allergies Seasonal Allergies: No Past Medical History Surgeries: Cardiac, Coronary Stent, Orthopedic Cardiac: Coronary Artery Disease, Hypertension, Hypotension Reproductive: No Musculoskeletal: Degenerate Disk Disease, Foot Drop, Chronic Back Pain, Fractures Endocrine: Diabetes, Insulin dep Psychosocial: Anxiety, Depression History of Blood Disorders: No Adverse Reaction to Blood Grey: No (No transfusion hx.) Family History Diabetes mellitus 19 FATHER, Onset:50's - 60 Myocardial infarction 19 FATHER, Onset:Unknown Parkinson's disease 19 MOTHER No Family History of: Degenerative disc disease CAD Under 55 Years Old PM&R Allergy/Meds/Data Review Allergies Coded Allergies: No Known Drug Allergies (Unverified , 01/03/14) Home Medications No Active Prescriptions or Reported Meds Current Medications Current Medications Reviewed Review of Systems Constitutional: see HPI, dizziness, malaise, weakness EENTM: no symptoms reported Respiratory: no symptoms reported Cardiovascular: no symptoms reported Gastrointestinal: no symptoms reported Genitourinary: no symptoms reported Musculoskeletal: back pain, joint pain, muscle pain, muscle stiffness, muscle cramps Skin: no symptoms reported Psychiatric/Neurological: Anxiety, Depressed All Other Systems Reviewed Negative Unless Noted: Yes Physical Exam Physical Exam Vital Signs Capillary Refill : Height, Weight, BMI Height: 5'10.00" Weight: 170lbs. 0.0oz. [id number]; 24.35 BMI Method:Stated General Appearance: No Apparent Distress, WD/WN, Chronically ill Eyes: Bilateral Eye Normal Inspection, Bilateral Eye PERRL HEENT: PERRL/EOMI, Normal ENT Inspection, Pharynx Normal Neck: Full Range of Motion, Normal Inspection, Non Tender, Supple, Carotid Bruit Respiratory: Chest Non Tender, Lungs Clear, Normal Breath Sounds, No Accessory Muscle Use, No Respiratory Distress Cardiovascular: Regular Rate, Rhythm, No Edema, No Gallop, No JVD, No Murmur, Normal Peripheral Pulses Gastrointestinal: Normal Bowel Sounds, No Organomegaly, No Pulsatile Mass, Non Tender, Soft Back: Normal Inspection, No CVA Tenderness, No Vertebral Tenderness Extremity: Normal Capillary Refill, Normal Inspection, Normal Range of Motion (Except right arm), Non Tender, No Calf Tenderness, No Pedal Edema Neurologic/Psychiatric: Alert, Oriented x3, service girl II-XII Norm as Tested, Abnormal Gait, Depressed Affect, Motor Weakness ( generalized) Skin: Normal Color, Warm/Dry Lymphatic: No Adenopathy PM&R Medical Assessment & Plan REHAB/MEDICAL ASSESSMENT AND PLAN: REHAB IMPAIRMENT GROUP: Right clavicle fracture with history of foot drop and TBI ETIOLOGIC DIAGNOSIS: Right clavicle fracture with history of foot drop and TBI The comorbidities that impact the patients function and/or functional outcome by: noncompliance with meds, Diabetes fbx-kx-spfvxcl, Hypertension frt-lk-wxyqiwn, TBI REHAB PLAN: The patient is being admitted to our comprehensive inpatient rehabilitation facility and can tolerate the intensity of service consisting of at least: 180 minutes of therapy a day, 5 out of 7 days a week Rehab treatment will consist of: PT and OT will focus on regaining function with use of assistive devices in order to increase ambulatory stamina and increased ADLs independence The patient/family has a good understanding of our discharge process and will benefit from an interdisciplinary inpatient rehabilitation program. The patient has potential to make improvement and is in need of at least two of the following multidisciplinary therapies including but not limited to physical, occupational, speech, and prosthetics and orthotics. Additionally the patient will need services from respiratory, nutritional services, wound care, psychology, etc. (Customize this to each patient). Given the patients complex condition and risk of further medical complications, rehabilitation services cannot be safely or effectively provided at a lower level of care such as a [facility]p facility. BARRIERS TO DISCHARGE: history of TBI foot drop and multiple falls ESTIMATED LOS: 7 days DISPOSITION: home RELEVANT CHANGES SINCE PREADMISSION SCREENING: I have compared the patients medical and functional status at the time of the preadmission screening and there are: no changes PROGNOSIS: good REHABILITATION GOALS: 1. PT and OT will focus on regaining function with use of assistive devices in order to increase ambulatory stamina and increased ADLs independence All the above goals were reviewed with the patient and he/she is in agreement. By signing this document, I acknowledge that I have personally performed a full physical examination on this patient within 24 hours of admission to this inpatient rehabilitation facility and have determined the patient to be able to tolerate the above course of treatment at an intensive level for a reasonable period of time. I will be completing a detailed individualized Plan of Care for this patient by day #4 of the patients stay based upon the Preadmission Screen, the Post-Admission Evaluation, and the therapy evaluations. Admission Dx/Comorbidities: (1) Right clavicle fracture ICD Codes: S42.001A - Fracture of unspecified part of right clavicle, initial encounter for closed fracture (2) Diabetes ICD Codes: E11.9 - Type 2 diabetes mellitus without complications (3) Noncompliance ICD Codes: Z91.199 - Patient's noncompliance with other medical treatment and regimen due to unspecified reason (4) Foot drop ICD Codes: M21.379 - Foot drop, unspecified foot (5) TBI (traumatic brain injury) ICD Codes: S06.9XAA - Unspecified intracranial injury with loss of consciousness status unknown, initial encounter (6) Rib pain on right side ICD Codes: R07.81 - Pleurodynia (7) Coronary artery disease Status: Acute ICD Codes: I25.10 - Athscl heart disease of [place] coronary artery w/o ang pct rs (8) Hyperlipemia Onset Date: 01/04/2014 Status: Acute ICD Codes: E78.5 - Hyperlipemia Assessment/Plan Assessment and Plan Assess & Plan/Chief Complaint Assessment: Fall off horse and found down in field with right clavicle fracture History of TBI History of foot drop Multiple falls Diabetes noncompliant with insulin CAD previous stents Hyperlipidemia Depression Hypertension Plan: Aggressive PT and OT Fall risk Insulin Blood pressure meds TOM AGUIRRE DO Oct 08, 2022 13:57
[2022-10-08] MEDS ORDERED: ACETAMINOPHEN 325 MG TABLET PO PRN (14:00)
[2022-10-08] MEDS ORDERED: guaiFENesin/CODEINE (ROBITUSSIN AC) 10ML UDC PO PRN (14:00)
[2022-10-08] MEDS ORDERED: MELATONIN 3 MG TABLET PO PRN (14:00)
[2022-10-08] MEDS ORDERED: LOPERAMIDE 2 MG (IMODIUM) TABLET PO PRN (14:00)
[2022-10-08] MEDS ORDERED: LACTULOSE SYRUP 10GM/15ML (ENULOSE) 30ML UDC PO PRN (14:00)
[2022-10-08] MEDS ORDERED: CALCIUM CARBONATE 500 MG (TUMS) TAB.CHEW PO PRN (14:00)
[2022-10-08] MEDS ORDERED: FLEET ENEMA ADULT 1 EA BTL PR PRN (14:00)
[2022-10-08] MEDS ORDERED: ONDANSETRON 4 MG (ZOFRAN) ORAL DISSOLVE TAB PO PRN (14:00)
[2022-10-08] MEDS ORDERED: BISACODYL 10 MG SUPP (DULCOLAX) PR PRN (14:00)
[2022-10-08] MEDS ORDERED: ALPRAZolam 0.25 MG (XANAX) TAB PO PRN (14:00)
[2022-10-08] MEDS ORDERED: DOCUSATE SODIUM 100 MG (COLACE) CAP PO PRN (14:00)
[2022-10-08] MEDS ORDERED: diphenhydrAMINE 25 MG TAB (BENADRYL) PO PRN (14:00)
--- NOTE | 2022-10-08 14:55 | Occupational Therapy Eval ---
OT Evaluation-General/PLF Medical Diagnosis Admission Date Oct 08, 2022 at 14:40 Medical Diagnosis: right clavicle fx, rib pain Onset Date: Oct 07, 2022 Therapy Diagnosis Therapy Diagnosis: RUE fx Height/Weight Height (Feet): 5 Height (Inches): 10.00 Weight (Pounds): 170 Weight (Ounces): 0.0 Precautions Precautions/Isolations: Fall Prevention, Standard Precautions Weight Bear Status Weight Bearing Restriction: Non Weight Bearing Location Restriction: R LE (SLING) Referral Referral Reason: Activity Tolerance, Self Care, Evaluation/Treatment, Str engthening/ROM Medical History Pertinent Medical History: CAD, DM, HTN Additional Medical History Thrown from horse Current History PMH: CAD, DM, cardiac stent, HTN, cervical and lumbar surgeries,foot drop, Reviewed History: Yes Social History Home: Single Level Current Living Status: Alone Entry Into Home: Stairs With Railing Steps Into Home: 3 (RIGHT SIDE) FAMILY LIVES CLOSE ADL-Prior Level of Function SCALE: Activities may be completed with or without assistive devices. 3-Ruxqdxwnbp-qrirdye completes the activity by him/herself with no assistance from a helper. 5-Set-up or Clean-up Assistance-helper sets up or cleans up; patient completes activity. [place] assists only prior to or following the activity. 4-Supervision or Touching Assistance-helper provides verbal cues and/or touching/steadying and/or contact guard assistance as patient completes activity. Assistance may be provided throughout the activity or intermittently. 3-Partial/Moderate Assistance-helper does LESS THAN HALF the effort. [place] lifts, holds or supports trunk or limbs, but provides less than half the effort. 2-Substantial/Maximal Assistance-helper does MORE THAN HALF the effort. [place] lifts or holds trunk or limbs and provides more than half the effort. 1-Obsqauvjp-cpgwrb does ALL the effort. Patient does none of the effort to complete the activity. Or, the assistance of 2 or more helpers is required for the patient to complete the activity. If activity was not attempted, code reason: 7-Patient Refused. 9-Not Applicable-not attempted and the patient did not perform the activity before the current illness, exacerbation or injury. 10-Not Attempted due to Environmental Limitations-(lack of equipment, weather restraints, etc.). 88-Not Attempted due to Medical Conditions or Safety Concerns. Self Care: Independent Functional Cognition: Needed Some Help Drive Self: Yes OT Current Status Pain Numeric Pain Scale: 3 Location: Right Location Body Site: Arm Comment: INTERMITTENT INCREASE OF PAIN W/ ACTIVTY HOWEVER RESOLVES AT COMPLETION Mental Status/Objective Patient Orientation: Person, Place, Time, Situation Attachments: Other-See Comments (kyle FARMER, r afo) Current Glasses/Contacts: Yes (READERS) Hearing Aids: No Dentures/Partials: No Hand Dominance: Right Upper Extremity ROM LUE ROM WFLS Upper Extremity Strength 4/5 BLE, -4/5 LUE, FACIAL GRIMACE D/T RIB PAIN DURING MMT REQUIRES INSTRUCTION TO USE RIGHT HAND WITH TASKS, EDUCATION PROVIDED FOR TASKS W/O WB TO RUE ADL-Treatment Eating (QC): 5 (RIGHT HANDED) Oral Hygiene (QC): 5 Shower/Bathe Self (QC): 3 Upper Body Dressing (QC): 4 Lower Body Dressing (QC): 4 On/Off Footwear (QC): 4 Toileting Hygiene (QC): 4 HAS BOTH A WALK IN SHOWER, AND TUB SHOWER USES WALK IN SHOWER. SITS ON A UPSIDE DOWN BUCKET, STANDARD TOILET, HAS A CANE AND A WALKER BUT DOES NOT USE. OUTSIDE DOG W/ SELF FEEDER, FAMILY CARES FOR DOG WHILE HERE. Education OT Patient Education: Correct positioning, Exercise program, Instructions don/doff splint/brace, Modified ADL techniques, Progress toward Goal/Update tx plan, Purpose of tx/functional activities, Reviewed precautions, Rehab process, Safety issues, Transfer techniques, Use of adapted equipment, W/C management Teaching Recipient: Patient Teaching Methods: Demonstration, Discussion Response to Teaching: Verbalize Understanding, Reinforcement Needed BIMS CAM BIMS Expression of Ideas and Wants: Without Difficulty Understanding Verbal Content: Understands IRF CODY BIMS: IRF CODY BIMS Response (Comments) Value Repitition of Three Words Three 3 Recalls Socks Yes, No Cue Required 2 Recalls Blue Yes, No Cue Required 2 Recalls Bed Yes, No Cue Required 2 Year Correct 3 Month Accurate Within 5 Days 2 Day Correct 1 Total 15 CAM Mental Status Change/Baseline: 0 Inattention: 0 Disorganized thinkin Altered level of consciousness: 0 OT Short Term Goals Short Term Goals Time Frame: Oct 11, 2022 Eatin Oral hygiene: 6 Toileting hygiene: 5 OT Structures Engineer Goals Structures Engineer Goals Eating (QC): 6 Oral Hygiene (QC): 6 Toileting Hygiene (QC): 6 Shower/Bathe Self (QC): 6 Upper Body Dressing (QC): 6 Lower Body Dressing (QC): 6 On/Off Footwear (QC): 6 1=Demonstrate adherence to instructed precautions during ADL tasks. 2=Patient will verbalize/demonstrate understanding of assistive devices/modifications for ADL. 3=Patient will improve strength/tolerance for activity to enable patient to perform ADL's. OT Education/Plan Problem List/Assessment Assessment: Decreased Activ Tolerance, Decreased UE Strength, Impaired Self- Care Skills, Restricted Funct UE ROM Discharge Recommendations Plan/Recommendations: Continue POC Treatment Plan/Plan of Care Treatment,Training & Education: Yes Patient would benefit from OT for education, treatment and training to promote independence in ADL's, mobility, safety and/or upper extremity function for ADL's. Plan of Care: ADL Retraining, Cognitive Retraining, Concurrent Therapy Treatment Duration: Nov 07, 2022 Frequency: At least 5 of 7 days/Wk (IRF) Estimated Hrs Per Day: 1.5 hours per day Agreement: Yes Rehab Potential: Good Time Start Time: 14:45 Stop Time: 15:00 DATE: Oct 08, 2022 Total Time Billed (hr/min): 15 Billed Treatment Time EVM 15 min CONRAD VASQUEZ OT Oct 08, 2022 14:55
[2022-10-08 15:22] VITALS: BP 165/84
--- NOTE | 2022-10-08 15:38 | Physical Therapy Evaluation ---
PT Evaluation-General Medical Diagnosis Admission Date Oct 08, 2022 at 14:40 Medical Diagnosis: R Clavicle Fx, Rib Pain Onset Date: Oct 07, 2022 Therapy Diagnosis Therapy Diagnosis: Weakness; Decreased functional mobility Height/Weight Height (Feet): 5 Height (Inches): 10.00 Weight (Pounds): 170 Weight (Ounces): 0.0 Precautions Precautions/Isolations: Fall Prevention, Standard Precautions NWB R UE Weight Bear Status Right Lower Extremity: Right Full Weight Bearing Left Lower Extremity: Left Full Weight Bearing NWB R UE Referral Physician: Abhay Reason for Referral: Evaluation/Treatment Medical History Pertinent Medical History: CAD, DM, HTN Additional Medical History CAD, DM, Cardiac stent, HTN, DDD, depression, lumbar and cervical surgeries Current History Fell off horse on 10/07/2022 with R clavicle fx and rib pain; Admitted to ARU on 10/08/2022 Reviewed History: Yes Social History Home: Single Level Current Living Status: Alone Entry Into Home: Stairs With Railing PT Steps Into Home: 3 (RIGHT SIDE HR) Pt lives alone in a single story home with 3 steps to enter with R HR; family l penny within 5 miles; walk-in shower, no SC, no GB, standard toilet Prior Prior Level of Function SCALE: Activities may be completed with or without assistive devices. 0-Hhidyixrli-djgmgjk completes the activity by him/herself with no assistance from a helper. 5-Set-up or Clean-up Assistance-helper sets up or cleans up; patient completes activity. [place] assists only prior to or following the activity. 4-Supervision or Touching Assistance-helper provides verbal cues and/or touching/steadying and/or contact guard assistance as patient completes activity. Assistance may be provided throughout the activity or intermittently. 3-Partial/Moderate Assistance-helper does LESS THAN HALF the effort. [place] lift s, holds or supports trunk or limbs, but provides less than half the effort. 2-Substantial/Maximal Assistance-helper does MORE THAN HALF the effort. [place] lifts or holds trunk or limbs and provides more than half the effort. 6-Jtrimsfvw-crustx does ALL the effort. Patient does none of the effort to complete the activity. Or, the assistance of 2 or more helpers is required for the patient to complete the activity. If activity was not attempted, code reason: 7-Patient Refused. 9-Not Applicable-not attempted and the patient did not perform the activity before the current illness, exacerbation or injury. 10-Not Attempted due to Environmental Limitations-(lack of equipment, weather restraints, etc.). 88-Not Attempted due to Medical Conditions or Safety Concerns. Bed Mobility: 6 Transfers (B,C,W/C): 6 Gait: 6 Stairs: 6 Wheelchair Mobility: 9 Indoor Mobility (Ambulation): Independent Stairs: Independent Prior Devices Use: None At [facility], pt was Ind with no AD, driving, and working his land PT Evaluation-Current Subjective Pt is agreeable to PT eval Pain Numeric Pain Scale: 7 Location: Right Location Body Site: Shoulder Section J - Health Conditions 1. Rarely or not at all 2. Occasionally 3. Frequently 4. Almost constantly 8. Unable to answer Pain Effect on Sleep: 2 Pain Interference with Therapy: 3 Pain Interference w/Day-to-Day: 2 Pt/Family Goals safely return home Objective Patient Orientation: Person, Place, Time, Situation R UE sling ROM/Strength ROM Upper Extremities See OT note ROM Lower Extremities WFL Strength Upper Extremities See OT note Strength Lower Extremities B LE MMT = 4/5 grossly Integumentary/Posture Integumentary See nurses note Sensory Vision: Functional Hearing: Functional Hand Dominance: Right Sensation Right Upper Extremit: Intact Sensation Left Upper Extremity: Intact Sensation Right Lower Extremit: Intact Sensation Left Lower Extremity: Intact Transfers Roll Left & Right (QC): 3 (Min A) Sit to Lying (QC): 4 (SBA) Lying to Sitting/Side of Bed(Q: 3 (Min A) Sit to Stand (QC): 4 (CGA) Chair/Jlb-gh-Dtlrd Xfer(QC): 4 (CGA) Toilet Transfer (QC): 4 (CGA) Car Transfer (QC): 4 (CGA) Gait Does the Patient Walk?: Yes Mode of Locomotion: Walk Anticipated Mode of Locomotion: Walk Walk 10 feet (QC): 4 (CGA) Walk 50 ft with 2 Turns(QC): 4 (CGA) Walk 150 ft (QC): 4 (CGA) Walking 10ft/uneven surface-QC: 4 (CGA) Distance: 150ft Gait Assistive Device: None Wheelchair Training Does the Pt Use a Wheelchair?: No Wheel 50 ft with 2 turns (QC): 9 Wheel 150 ft (QC): 9 Type of Wheelchair: N/A Stairs #of Steps: 12 1 Step (curb) (QC): 4 (CGA) 4 Steps (QC): 4 (CGA) 12 Steps (QC): 4 (CGA) Balance Sitting Static: Normal Sitting Dynamic: Normal Standing Static: Good Standing Dynamic: Good Picking up an Object (QC): 4 (CGA) Special Test Comments KU standing balance scale = 4/5 (goal = 5/5) Treatment PT eval Assessment/Needs Pt tolerated PT eval well and would benefit from skilled PT to progress towards PLOF and safe d/c home Rehab Potential: Good Post Rehab Potential-Barriers: Pain Equipment Needs SC, as pt says he uses a bucket sometimes PT Fpc Goals [employer]itter Goals PT [employer] Goals Time Frame: Oct 17, 2022 Roll Left to Right (QC): 6 (Pt will be Ind with functional mobility to be at PL OF. ) Sit to Lying (QC): 6 (Pt will be Ind with functional mobility to be at PLOF. ) Lying-Sitting on Side/Bed(QC): 6 (Pt will be Ind with functional mobility to be at PLOF. ) Sit to Stand (QC): 6 (Pt will be Ind with functional mobility to be at PLOF. ) Chair/Ydm-st-Zeqaf Xfer(QC): 6 (Pt will be Ind with functional mobility to be at PLOF. ) Toilet/Commode Transfer (QC): 6 (Pt will be Ind with functional mobility to be at PLOF. ) Car Transfer (QC): 6 (Pt will be Ind with functional mobility to be at PLOF. ) Does the Patient Walk: Yes Walk 10 feet (QC): 6 (Pt will be Ind with functional mobility to be at PLOF. ) Walk 10ft-Uneven Surface(QC): 6 (Pt will be Ind with functional mobility to be at PLOF. ) Walk 50ft with 2 Turns (QC): 6 (Pt will be Ind with functional mobility to be at PLOF. ) Walk 150 ft (QC): 6 (Pt will be Ind with functional mobility to be at PLOF. ) Does the Pt use WC or Scooter?: No Wheel 50 feet with 2 turns (QC: 9 Type: N/A Wheel 150 feet: 9 Type: N/A 1 Step (curb) (QC): 6 (Pt will be Ind with functional mobility to be at PLOF. ) 4 Steps (QC): 6 (Pt will be Ind with functional mobility to be at PLOF. ) 12 Steps (QC): 6 (Pt will be Ind with functional mobility to be at PLOF. ) Picking up an Object (QC): 6 (Pt will be Ind with functional mobility to be at PLOF. ) KU standing balance scale goal = 5/5 PT Plan Problem List Problem List: Activity Tolerance, Functional Strength, Safety, Balance, Gait, Transfer, Bed Mobility Treatment/Plan Treatment Plan: Continue Plan of Care Treatment Plan: Bed Mobility, Concurrent Therapy, Education, Functional Activity [place], Functional Strength, Group Therapy, Gait, Safety, Therapeutic Exercise, Transfers Treatment Duration: Oct 17, 2022 Frequency: At least 5 of 7 days/Wk (IRF) Estimated Hrs Per Day: 1.5 hours per day Patient and/or Family Agrees t: Yes Safety Risks/Education Patient Education: Gait Training, Transfer Techniques, Steps, Issued Written HEP, Reviewed Precautions, Correct Positioning, Safety Issues Teaching Recipient: Patient Teaching Methods: Demonstration, Discussion Response to Teaching: Verbalize Understanding, Return Demonstration, Reinforcement Needed Discharge Recommendations Therapy Discharge Recommendati: Home & Family Equpiment Recommendations-D/C: Shower Chair Discharge Status/Home Program Cont per POC Barriers to Progress pain Target Placement home alone, with family close Time Time In: 1500 Time Out: 1515 DATE: Oct 08, 2022 Total Billed Treatment Time: 15 Total Billed Treatment 15 min MAGUI DICKERSON PT Oct 08, 2022 15:38
--- NOTE | 2022-10-08 16:31 | Physical Therapy Daily Note ---
PT Daily Note-Current Subjective pt in therapy gym with PT and willing for therapy this day. pt reports 6/10 pain and waiting on nurses orders to recieve pain meds from nursing. OT/PT co-treat from [id number] due to sill of 2 clinicians required which a mathematical technician could not preform in order to coordinate UE/LEs decreased fall risk, and due to pt's li mitations in strength, mobility, transfers and pain. OT focused on UE placement, cues for sequencing and safety and ADLs, PT focused on LE placement, gross overall movement and transfer and mobility. Pain Section J - Health Conditions 1. Rarely or not at all 2. Occasionally 3. Frequently 4. Almost constantly 8. Unable to answer Pain Effect on Sleep: 2 Pain Interference with Therapy: 3 Pain Interference w/Day-to-Day: 2 Mental Status Patient Orientation: Person, Place, Time, Situation Transfers SCALE: Activities may be completed with or without assistive devices. 9-Tkaglnyuib-oyfxpuy completes the activity by him/herself with no assistance from a helper. 5-Set-up or Clean-up Assistance-helper sets up or cleans up; patient completes activity. [place] assists only prior to or following the activity. 4-Supervision or Touching Assistance-helper provides verbal cues and/or touching/steadying and/or contact guard assistance as patient completes activity. Assistance may be provided throughout the activity or intermittently. 3-Partial/Moderate Assistance-helper does LESS THAN HALF the effort. [place] lifts, holds or supports trunk or limbs, but provides less than half the effort. 2-Substantial/Maximal Assistance-helper does MORE THAN HALF the effort. [place] lifts or holds trunk or limbs and provides more than half the effort. 1-Flnifiydk-ogdnqw does ALL the effort. Patient does none of the effort to complete the activity. Or, the assistance of 2 or more helpers is required for the patient to complete the activity. If activity was not attempted, code reason: 7-Patient Refused. 9-Not Applicable-not attempted and the patient did not perform the activity before the current illness, exacerbation or injury. 10-Not Attempted due to Environmental Limitations-(lack of equipment, weather restraints, etc.). 88-Not Attempted due to Medical Conditions or Safety Concerns. Weight Bearing Right Lower Extremity: Right Full Weight Bearing Left Lower Extremity: Left Full Weight Bearing NWB R UE Exercises Seated Therapy Exercises: Ankle pumps, Sit to stand, Long arc quads, Hip flexion, Kicking activity, Hamstring Curls, Hip abd/add, Glut set Seated Reps: 15 Treatments PT was educated on HEP and was able to recall and preform ther-ex this day. Pt was able to preform functional activity while maintaining balance. pt executed 8 sit to stands with Min A pulling on a hand to aid in standing up as pt cannot bear weight on the left shoulder Pt is able to ambulate 200ft with INSURANCE PRODUCER for increased safety and balance. Assessment Current Status: Good Progress PT Usp Goals Usp Goals PT Windshield Installer Goals Time Frame: Oct 17, 2022 Roll Left & Right (QC): 6 Sit to Lying (QC): 6 Lying-Sitting on Side/Bed(QC): 6 Sit to Stand (QC): 6 Chair/Lwp-fs-Jllfk Xfer(QC): 6 Toilet Transfer (QC): 6 Car Transfer (QC): 6 Does the Patient Walk: Yes Walk 10 feet (QC): 6 Walk 50ft with 2 Turns (QC): 6 Walk 150 ft (QC): 6 Walking 10ft on Uneven Surface: 6 1 Step (curb) (QC): 6 4 Steps (QC): 6 12 Steps (QC): 6 Picking up an Object (QC): 6 Does the Pt use WC or Scooter?: No Wheel 50 feet with 2 turns (QC: 9 Type: N/A Wheel 150 feet: 9 Type: N/A PT Plan Treatment/Plan Treatment Plan: Continue Plan of Care Treatment Plan: Bed Mobility, Concurrent Therapy, Education, Functional Activity Tesfaye, Functional Strength, Group Therapy, Gait, Safety, Therapeutic Exercise, Transfers Treatment Duration: Oct 17, 2022 Frequency: At least 5 of 7 days/Wk (IRF) Estimated Hrs Per Day: 1.5 hours per day Patient and/or Family Agrees t: Yes Time Time In: 1514 Time Out: 1629 DATE: Oct 08, 2022 Total Billed Treatment Time: 75 Total Billed Treatment 1 FA x 3 GT x 1 EX x 1 Co treat time from [id number] for a total of 75 mins Tawanna Vasquez CHANNEL MACHINE OPERATOR Oct 08, 2022 16:31
--- NOTE | 2022-10-08 16:43 | Occupational Ther Daily Note ---
OT Current Status-Daily Note Subjective Pt was in therapy gym with OT, MAC took over treatment after evaluation. PT/OT cotreat ([id number]) . Pt mentioned 6/10 pain in shoulder/ribs. Mental Status/Objective Attachments: IV ADL-Treatment PT/OT co-treat ([id number]) skills of 2 clinicians required to decrease fall risk, increase pt's overall mobility, decrease pain and education/cues throughout session for safe mobility during tasks. PT focusing on ambulation, transfers while OT focusing on ADLs and functional mobility.Pt was introduced to pinch apprentice stylist exercises (green sponge given to pt) and wrist mobility exercises on R only due to clavicle fracture. L Arm upper extremity exercises with 1# wt to introduce, will increase as needed for strengthening. Pt required minimal assistance, as well as multiple verbal cues and skilled instruction for correct technique when demonstrating and completing upper body dressing. Pt was taught the correct sequence for putting weak side into shirt first. Pt was SBA for safety along with verbal cues, also used a gettering operator to complete lower body dressing. Pt demonstrated the ability to toilet with SBA for safety. Pt was left in room sitting in chair, call light and phone within reach, all needs met. Therapy Code Descriptions/Definitions Functional [place] Measure: 0=Not Assessed/NA 4=Minimal Assistance 1=Total Assistance 5=Supervision or Setup 2=Maximal Assistance 6=Modified [place] 3=Moderate Assistance 7=Complete IndependenceSCALE: Activities may be completed with or without assistive devices. 6-Dekvpazbrv-seewmpg completes the activity by him/herself with no assistance from a helper. 5-Set-up or Clean-up Assistance-helper sets up or cleans up; patient completes activity. [place] assists only prior to or following the activity. 4-Supervision or Touching Assistance-helper provides verbal cues and/or touching/steadying and/or contact guard assistance as patient completes activity. Assistance may be provided throughout the activity or intermittently. 3-Partial/Moderate Assistance-helper does LESS THAN HALF the effort. [place] lifts, holds or supports trunk or limbs, but provides less than half the effort. 2-Substantial/Maximal Assistance-helper does MORE THAN HALF the effort. [place] lifts or holds trunk or limbs and provides more than half the effort. 4-Yisiitnql-hjjyja does ALL the effort. Patient does none of the effort to complete the activity. Or, the assistance of 2 or more helpers is required for the patient to complete the activity. If activity was not attempted, code reason: 7-Patient Refused. 9-Not Applicable-not attempted and the patient did not perform the activity before the current illness, exacerbation or injury. 10-Not Attempted due to Environmental Limitations-(lack of equipment, weather restraints, etc.). 88-Not Attempted due to Medical Conditions or Safety Concerns. Education Teaching Recipient: Patient Teaching Methods: Demonstration Response to Teaching: Verbalize Understanding, Return Demonstration OT Short Term Goals Short Term Goals Time Frame: Oct 11, 2022 Eatin Oral hygiene: 6 Toileting hygiene: 5 OT Residential Goals Residential Goals Acute change in mental status: 0 Inattention: 0 Disorganized thinkin Altered level of consciousness: 0 Eating (QC): 6 Oral Hygiene (QC): 6 Toileting Hygiene (QC): 6 Shower/Bathe Self (QC): 6 Upper Body Dressing (QC): 6 Lower Body Dressing (QC): 6 On/Off Footwear (QC): 6 1=Demonstrate adherence to instructed precautions during ADL tasks. 2=Patient will verbalize/demonstrate understanding of assistive gene gabi/modifications for ADL. 3=Patient will improve strength/tolerance for activity to enable patient to perform ADL's. OT Education/Plan Discharge Recommendations Plan/Recommendations: Continue POC Treatment Plan/Plan of Care Patient would benefit from OT for education, treatment and training to promote independence in ADL's, mobility, safety and/or upper extremity function for ADL's. Plan of Care: ADL Retraining, Cognitive Retraining, Concurrent Therapy Treatment Duration: Nov 07, 2022 Frequency: At least 5 of 7 days/Wk (IRF) Estimated Hrs Per Day: 1.5 hours per day Agreement: Yes Rehab Potential: Good Time Start Time: 15:13 Stop Time: 16:30 DATE: Oct 08, 2022 Total Time Billed (hr/min): 75 Billed Treatment Time 1 Visit Co-treat ([id number]) ADL 2 (30 MIN) EX 1 (15MIN) FA 2 (30 MIN) Denise Grajeda COTA Oct 08, 2022 16:43
[2022-10-08] MEDS ORDERED: HYDROmorphone 2 MG/ML VIAL (DILAUDID) IV PRN (18:30)
[2022-10-08] MEDS ORDERED: amLODIPine 5 MG (NORVASC) TAB PO NR (18:45)
[2022-10-08 19:33] VITALS: BP 147/84
[2022-10-08] MEDS: DOCUSATE SODIUM 100 MG (COLACE) CAP PO SCH (20:28)
[2022-10-08] MEDS: polyethylene glycoL POWDER 17 GM (MIRALAX) PACK PO SCH (20:29)
[2022-10-08] MEDS: SENNA W/DOCUSATE (SENOKOT S) TABLET PO SCH (20:29)
[2022-10-08] MEDS: inSUlin ASPART (NovoLOG) 1 UNIT/0.01 ML (CHARGE PER UNIT) SC SCH (20:32)
[2022-10-09] MEDS: inSUlin ASPART (NovoLOG) 1 UNIT/0.01 ML (CHARGE PER UNIT) SC SCH ×4 (05:21→20:54)
[2022-10-09] MEDS: ENOXAPARIN 40 MG/0.4 ML (LOVENOX) SYR SC SCH (05:31)
--- NOTE | 2022-10-09 05:41 | PM&R Progress Note ---
Subjective HPI/CC On Admission Date Seen by Provider: Oct 09, 2022 Time Seen by Provider: 12:00 Subjective/Events-last exam 10/09/2022: Patient doing a lot better Moving around better Pain is controlled Pain medication helping Added on ADA recommendations of MALIHA inhibitor and statin and increasing insulin since hemoglobin A1c is 14.8 Review of Systems General: Fatigue, Malaise Objective Exam Vital Signs Vital Signs Date Time Temp Pulse Resp B/P (MAP) Pulse Ox O2 Delivery O2 Flow Rate FiO2 10/09/22 20:40 Room Air 10/09/22 19:40 36.8 83 18 137/86 (103) 95 Capillary Refill : General Appearance: No Apparent Distress, WD/WN, Chronically ill HEENT: PERRL/EOMI, Normal ENT Inspection, Pharynx Normal Neck: Full Range of Motion, Normal Inspection, Non Tender, Supple, Carotid Bruit Respiratory: Chest Non Tender, Lungs Clear, Normal Breath Sounds, No Accessory Muscle Use, No Respiratory Distress Cardiovascular: Regular Rate, Rhythm, No Edema, No Gallop, No JVD, No Murmur, Normal Peripheral Pulses Gastrointestinal: Normal Bowel Sounds, No Organomegaly, No Pulsatile Mass, Non Tender, Soft Back: Normal Inspection, No CVA Tenderness, No Vertebral Tenderness Extremity: Normal Capillary Refill, Normal Inspection, Normal Range of Motion (Except right arm), Non Tender, No Calf Tenderness, No Pedal Edema Neurologic/Psychiatric: Alert, Oriented x3, client services associate II-XII Norm as Tested, Abnormal Gait, Depressed Affect, Motor Weakness ( generalized) Skin: Normal Color, Warm/Dry Lymphatic: No Adenopathy Results/Procedures Lab Laboratory Tests 10/09/22 05:34 Patient resulted labs reviewed. FIM Transfers Therapy Code Descriptions/Definitions Functional [place] Measure: 0=Not Assessed/NA 4=Minimal Assistance 1=Total Assistance 5=Supervision or Setup 2=Maximal Assistance 6=Modified [place] 3=Moderate Assistance 7=Complete IndependenceSCALE: Activities may be completed with or without assistive devices. 7-Jrqsnlropv-feiresv completes the activity by him/herself with no assistance from a helper. 5-Set-up or Clean-up Assistance-helper sets up or cleans up; patient completes activity. [place] assists only prior to or following the activity. 4-Supervision or Touching Assistance-helper provides verbal cues and/or touching/steadying and/or contact guard assistance as patient completes activity. Assistance may be provided throughout the activity or intermittently. 3-Partial/Moderate Assistance-helper does LESS THAN HALF the effort. [place] lifts, holds or supports trunk or limbs, but provides less than half the effort. 2-Substantial/Maximal Assistance-helper does MORE THAN HALF the effort. [place] lifts or holds trunk or limbs and provides more than half the effort. 2-Qbwiucexu-wibdaz does ALL the effort. Patient does none of the effort to complete the activity. Or, the assistance of 2 or more helpers is required for the patient to complete the activity. If activity was not attempted, code reason: 7-Patient Refused. 9-Not Applicable-not attempted and the patient did not perform the activity before the current illness, exacerbation or injury. 10-Not Attempted due to Environmental Limitations-(lack of equipment, weather restraints, etc.). 88-Not Attempted due to Medical Conditions or Safety Concerns. Roll Left to Right (QC): 3 Sit to Lying (QC): 4 Sit to Stand (QC): 4 Chair/Nfw-uh-Smklu Xfer(QC): 4 Car Transfer (QC): 4 Gait Training Does the Patient Walk?: Yes Walk 10 feet (QC): 4 Walk 50 ft with 2 Turns(QC): 4 Walk 150 ft (QC): 4 Walking 10ft/uneven surface-QC: 4 Gait Assistive Device: None Wheelchair Training Does the Pt Use a Wheelchair?: No Wheel 50 ft with 2 turns (QC): 9 Wheel 150 ft (QC): 9 Type of Wheelchair: N/A Stair Training #of Steps: 12 1 Step (curb) (QC): 4 4 Steps (QC): 4 12 Steps (QC): 4 Balance Picking up an Object (QC): 4 ADL-Treatment Eating (QC): 5 (RIGHT HANDED) Oral Hygiene (QC): 5 Assessment/Plan Assessment and Plan Assess & Plan/Chief Complaint Assessment: Fall off horse and found down in field with right clavicle fracture History of TBI History of foot drop Multiple falls Diabetes noncompliant with insulin Hemoglobin A1c 14.8 CAD previous stents Hyperlipidemia Depression Hypertension Plan: Aggressive PT and OT Fall risk Insulin Blood pressure meds 10/09/2022: Add statin Add MALIHA inhibitor Increase insulin (1) Right clavicle fracture (2) Diabetes (3) Noncompliance (4) Foot drop (5) TBI (traumatic brain injury) (6) Rib pain on right side (7) Coronary artery disease Status: Acute (8) Hyperlipemia Onset Date: 01/04/2014 Status: Acute TOM AGUIRRE DO Oct 09, 2022 05:41
--- NOTE | 2022-10-09 05:41 | Individualized Plan of Care ---
Individualized Plan of Care Rehab Nursing IPOC Order Admission Date Oct 08, 2022 at 14:40 Current Orders Orders Admission Order(Inpt,Obs,Sdc) (10/08/22 13:51) Vital Signs: Per Unit Policy ( ,16,00 (10/08/22 13:51) Krishan Cortes (10/08/22 13:51) Sequential Compression Device (10/08/22 13:51) Chocolate Production Machine Operator-Inpt Rehab Con (10/08/22 13:51) Rehab Nursing Orders-Ipoc (10/08/22 13:51) Physical Therapy Rehab Orders (10/08/22 13:51) Occupational Therapy Rehab Ord (10/08/22 13:51) Speech Therapy Rehab Orders (10/08/22 13:51) Cbc With Automated Diff (10/09/22 06:00) Comprehensive Metabolic Panel (10/09/22 06:00) Precautions (Aru) (10/08/22 13:51) Weekly Weight WEEK (10/08/22 13:51) Rehab-Intensity Of Therapy (10/08/22 13:51) Initiate Admission Nursing Pro .admission (10/08/22 13:51) Alprazolam Tablet (Xanax Tablet) (10/08/22 14:00) Calcium Carbonate Chew Tablet (Antacid C (10/08/22 14:00) Diphenhydramine Tablet (Benadryl Tablet) (10/08/22 14:00) Docusate Sodium Capsule (Colace Capsule) (10/08/22 21:00) Docusate Sodium Capsule (Colace Capsule) (10/08/22 14:00) Bisacodyl Suppository (Dulcolax Supposit (10/08/22 14:00) Lactulose Oral Solution (Enulose Oral So (10/08/22 14:00) Na Phos/Na Biphos Enema (Fleet Enema Adan (10/08/22 14:00) Guaifenesin/Codeine Syrup (Robitussin Ac (10/08/22 14:00) Loperamide Tablet (Imodium Tablet) (10/08/22 14:00) Melatonin Tablet (Melatonin Tablet) (10/08/22 14:00) Polyethylene Glycol Powder Pkt (Miralax (6/21/23 21:00) Ondansetron Oral Dissolve Tab (Zofran (10/08/22 14:00) Senna S Tablet (Senokot S Tablet) (10/08/22 21:00) Acetaminophen Tablet/Caplet (Tylenol T (10/08/22 14:00) Initiate Admission Nursing Pro .admission (10/08/22 13:51) Code/Resuscitation (10/08/22 13:51) Admission Arrival Bed Request (10/08/22 14:44) Enoxaparin Injection (Lovenox Injection) (10/09/22 06:30) Isolation Central Supply Req (10/08/22 16:37) Cho 75g/M 0snack (21-2400 Abhishek) (10/08/22 Dinner) Oxycodone Immediate Rel Tablet (Oxyir Ta (10/08/22 18:30) Hydromorphone Injection (Dilaudid Inject (10/08/22 18:30) Accucheck Achs ACHS (10/08/22 18:29) Insulin Aspart (Novolog) (Novolog (Charg (10/08/22 21:00) Insulin Determir (Per Unit) (Levemir (Pe (10/08/22 21:00) Amlodipine Tablet (Norvasc Tablet) (10/08/22 18:45) Amlodipine Tablet (Norvasc Tablet) (10/09/22 09:00) Aspirin Chewable Tablet (Baby Aspirin Ch (10/09/22 09:00) Patient Visit (10/08/22 ) Pt Eval Low Complexity (10/08/22 ) Patient Visit (10/08/22 ) Functional Activities, Ea 15 (10/08/22 ) Gait Training, Ea 15 Min (10/08/22 ) Exercise Therap, Ea 15 Min (10/08/22 ) Patient Visit (10/09/22 ) Exercise Therap, Ea 15 Min (10/09/22 ) Functional Activities, Ea 15 (10/09/22 ) Gait Training, Ea 15 Min (10/09/22 ) Insulin Determir (Per Unit) (Levemir (Pe (10/10/22 09:00) Insulin Aspart (Novolog) (Novolog (Charg (10/10/22 07:00) Lisinopril Tablet (Zestril Tablet) (10/10/22 09:00) Atorvastatin Tablet (Lipitor Tablet) (10/10/22 21:00) Rehab Nursing Orders: Ongoing Assess. of Cognitive Status, Ongoing Assess. of Function Status, Bladder Management, Bladder Scan, Bladder Training, Bowel Management, Bowel Training, Disease Management & Educaiton, DVT Prophylaxis, Fall Prevention, Fluid/Electrolyte/Nutrition Mgmt, Infection Prevention, Medication Management & Education, Management of Risks & Complications, Management of Skin Intergrity, Nutrition Management, Pain Management, Patient/Family Support, Safety Management, Swallow Precautions Intensity of Therapy to be met Patient to be seen: Min.3h per day/5 of 7d PT IPOC Problem List: Activity Tolerance, Functional Strength, Safety, Balance, Gait, Transfer, Bed Mobility Treatment Plan: Continue Plan of Care Bed Mobility, Concurrent Therapy, Education, Functional Activity Tesfaye, Functional Strength, Group Therapy, Gait, Safety, Therapeutic Exercise, Transfers Treatment Duration: Oct 17, 2022 Frequency: At least 5 of 7 days/Wk (IRF) Estimated Hrs Per Day: 1.5 hours per day OT IPOC Problems: Decreased Activ Tolerance, Decreased UE Strength, Impaired Self-Care Skills, Restricted Funct UE ROM OT Treatment, Training and Edu: Yes Plan of Care: ADL Retraining, Cognitive Retraining, Concurrent Therapy Treatment Duration: Nov 07, 2022 Frequency: At least 5 of 7 days/Wk (IRF) Estimated Hrs Per Day: 1.[address] IPOC Speech Therapy Treatment Plan: Continue Plan of Care Treatment Duration: Oct 09, 2022 Frequency: Modified Program (IRF) Estimated Hrs Per Day: Other Chocolate Production Machine Operator/Case Mgmt Chocolate Production Machine Operator/Case Managemen: Discharge Planning Dietitian/Creel Selector Dietitian/Cre[place] Selector to monitor nutritional status and make changes and/or recommendations as needed and work with speech pathology on dietary upgrades as the occur. Physician IPOC Medical Issues being managed closely and that require the 24 hour availability of a physician: Recent fall with clavicle fracture and qqm-za-acwwblf diabetes with history of TBI and foot drop require close monitoring for decompensation Medical Issues: Bowel/Bladder Function, DVT Prophylaxis, Falls Precautions, Fluid/Electrolyte/Nutrition Balance, Infection Protection, Pain Management Brief Synthesis of Preadmission Screen, Post-Admission Evaluation, and Therapy Evaluations: PT and OT will focus on use of assistive devices and fall risk prevention in order to increase stamina and increased ADL independence Medical Prognosis: Good Anticipated Length of Stay: 7 days TOM AGUIRRE 22, 2023 05:41
[2022-10-09 05:43] LABS: BASOPHILS # (AUTO) 0.1 10^3/uL (0.0-0.1); BASOPHILS % (AUTO) 1 % (0-10); EOSINOPHILS # (AUTO) 0.1 10^3/uL (0.0-0.3); EOSINOPHILS % (AUTO) 1 % (0-10); HEMATOCRIT 42 % (40-54); HEMOGLOBIN 14.6 g/dL (13.3-17.7); LYMPHOCYTES # (AUTO) 1.7 10^3/uL (1.0-4.0); LYMPHOCYTES % (AUTO) 15 % (12-44); MEAN CORPUSCULAR HEMOGLOBIN 31 pg (25-34); MEAN CORPUSCULAR HGB CONC 35 g/dL (32-36); MEAN CORPUSCULAR VOLUME 90 fL (80-99); MEAN PLATELET VOLUME 10.9 fL (9.0-12.2); MONOCYTES # (AUTO) 1.1 10^3/uL (0.0-1.0); MONOCYTES % (AUTO) 9 % (0-12); NEUTROPHILS # (AUTO) 8.7 10^3/uL (1.8-7.8); NEUTROPHILS % (AUTO) 75 % (42-75); PLATELET COUNT 181 10^3/uL (130-400); WHITE BLOOD COUNT 11.6 10^3/uL (4.3-11.0)
[2022-10-09 06:00] LABS: ALBUMIN 3.9 GM/DL (3.2-4.5)
[2022-10-09 06:01] LABS: POTASSIUM 3.4 MMOL/L (3.6-5.0)
[2022-10-09 06:02] LABS: CALCIUM 9.1 MG/DL (8.5-10.1)
[2022-10-09 06:03] LABS: TOTAL PROTEIN 6.9 GM/DL (6.4-8.2)
[2022-10-09 06:05] LABS: BILIRUBIN,TOTAL 0.6 MG/DL (0.1-1.0)
[2022-10-09 06:07] LABS: CREATININE SERUM 0.78 MG/DL (0.60-1.30)
[2022-10-09] MEDS: amLODIPine 5 MG (NORVASC) TAB PO SCH (08:00)
[2022-10-09] MEDS: ASPIRIN 81 MG CHEW (CHILDREN'S ASA) PO SCH (08:00)
[2022-10-09] MEDS: DOCUSATE SODIUM 100 MG (COLACE) CAP PO SCH ×2 (08:01→20:53)
[2022-10-09] MEDS: SENNA W/DOCUSATE (SENOKOT S) TABLET PO SCH ×2 (08:01→20:53)
[2022-10-09] MEDS: polyethylene glycoL POWDER 17 GM (MIRALAX) PACK PO SCH ×2 (08:01→19:48)
[2022-10-09 08:20] VITALS: BP 166/99
--- NOTE | 2022-10-09 08:42 | Physician Query Clarification ---
PQ-Further Specificity Admission/Discharge Admission Date: Oct 08, 2022 at 14:40 Discharge Date: , The medical record reflects the following clinical scenario: History/Risk Factors: fx rt clavicle, rt rib contusion, foot drop Clinical Findings: abnormal gait, motor weakness Treatment: IP rehab Question: Can you further specify the laterality of the foot drop per the clinical indicators above? Please document a response in the Progress Notes or Discharge Summary. 1. Rt. foot drop 2. Lt. foot drop 3. Other, with explanation of the clinical findings. 4. Clinically undetermined, no explanation for the clinical findings. PHYSICIAN RESPONSE Can you specify per above: 1 In responding to this query, please exercise your independent professional judgment. The purpose of this communication is to more accurately reflect the complexity of your patients condition. The fact that a question is asked does not imply that any particular answer is desired or expected. Thank you for your timely response to this clarification. Requestors name: Ale THIS PHYSICIAN QUERY FORM IS A PERMANENT PART OF THE MEDICAL RECORD ALE GRAMAJO Oct 09, 2022 08:42 TOM AGUIRRE DO Oct 09, 2022 11:43
--- NOTE | 2022-10-09 10:13 | Physical Therapy Daily Note ---
PT Daily Note-Current Subjective Pt sitting in w/c, with nursing present, upon arrival. Pt reported R shoulder pain at 4/10. Pain Numeric Pain Scale: 4 Location: Right Location Body Site: Shoulder Section J - Health Conditions 1. Rarely or not at all 2. Occasionally 3. Frequently 4. Almost constantly 8. Unable to answer Pain Effect on Sleep: 2 Pain Interference with Therapy: 2 Pain Interference w/Day-to-Day: 2 Mental Status R UE sling Transfers SCALE: Activities may be completed with or without assistive devices. 0-Ocdbcrdsoe-bvygaqu completes the activity by him/herself with no assistance from a helper. 5-Set-up or Clean-up Assistance-helper sets up or cleans up; patient completes activity. [place] assists only prior to or following the activity. 4-Supervision or Touching Assistance-helper provides verbal cues and/or touching/steadying and/or contact guard assistance as patient completes activity. Assistance may be provided throughout the activity or intermittently. 3-Partial/Moderate Assistance-helper does LESS THAN HALF the effort. [place] lifts, holds or supports trunk or limbs, but provides less than half the effort. 2-Substantial/Maximal Assistance-helper does MORE THAN HALF the effort. [place] lifts or holds trunk or limbs and provides more than half the effort. 2-Yiaoqlpru-pvxihw does ALL the effort. Patient does none of the effort to complete the activity. Or, the assistance of 2 or more helpers is required for the patient to complete the activity. If activity was not attempted, code reason: 7-Patient Refused. 9-Not Applicable-not attempted and the patient did not perform the activity before the current illness, exacerbation or injury. 10-Not Attempted due to Environmental Limitations-(lack of equipment, weather restraints, etc.). 88-Not Attempted due to Medical Conditions or Safety Concerns. Sit to Stand (QC): 4 Chair/[place]-Pnmuy Xfer(QC): 4 Weight Bearing Right Lower Extremity: Right Full Weight Bearing Left Lower Extremity: Left Full Weight Bearing NWB R UE Gait Training Does the Patient Walk?: Yes Distance: 300ft x 2 Walk 10 feet (QC): 4 Walk 50 ft with 2 Turns(QC): 4 Walk 150 ft (QC): 4 Gait Persons Needed: 1 Gait Assistive Device: None Wheelchair Training Does the Pt Use a Wheelchair?: No Wheel 50 ft with 2 turns (QC): 9 Wheel 150 ft (QC): 9 Type of Wheelchair: N/A Treatments Pt sitting in w/c upon arrival. Pt just finished showering with OT and required Min A to don shirt, pants, and socks. Pt completed functional transfers with SBA. Pt ambulated 300ft x 2 with no AD and CGA. Pt completed seated B LE Ther Ex x 15 reps each with the red Tband. Pt completed sit to stand x 10 reps. Pt completed standing B LE Ther Ex x 15 reps each, with L UE support, SBA, and no rest break. Pt completed 20 min on the nu-step on level 3. Pt left in room, sitting up in the w/c (for better back support, per pt), with call light in reach and all needs met. Assessment Current Status: Good Progress Pt tolerated PT well with good effort PT Residential Goals Procurement Clerk Goals PT Residential Goals Time Frame: Oct 17, 2022 Roll Left & Right (QC): 6 Sit to Lying (QC): 6 Lying-Sitting on Side/Bed(QC): 6 Sit to Stand (QC): 6 Chair/Soq-ix-Dnzfi Xfer(QC): 6 Toilet Transfer (QC): 6 Car Transfer (QC): 6 Does the Patient Walk: Yes Walk 10 feet (QC): 6 Walk 50ft with 2 Turns (QC): 6 Walk 150 ft (QC): 6 Walking 10ft on Uneven Surface: 6 1 Step (curb) (QC): 6 4 Steps (QC): 6 12 Steps (QC): 6 Picking up an Object (QC): 6 Does the Pt use WC or Scooter?: No Wheel 50 feet with 2 turns (QC: 9 Type: N/A Wheel 150 feet: 9 Type: N/A PT Plan Problem List Problem List: Activity Tolerance, Functional Strength, Safety, Balance, Gait, Transfer, Bed Mobility Treatment/Plan Treatment Plan: Continue Plan of Care Treatment Plan: Bed Mobility, Concurrent Therapy, Education, Functional Activity Tesfaye, Functional Strength, Group Therapy, Gait, Safety, Therapeutic Exercise, Transfers Treatment Duration: Oct 17, 2022 Frequency: At least 5 of 7 days/Wk (IRF) Estimated Hrs Per Day: 1.5 hours per day Patient and/or Family Agrees t: Yes Safety Risks/Education Patient Education: Gait Training, Transfer Techniques, Reviewed Precautions, Safety Issues Teaching Recipient: Patient Teaching Methods: Demonstration, Discussion Response to Teaching: Verbalize Understanding, Return Demonstration, Reinforcement Needed Discharge Recommendations Therapy Discharge Recommendati: Home & Family Equpiment Recommendations-D/C: Shower Chair Discharge Status/Home Program Cont per POC Barriers to Progress Increased pain Target Placement Home with family assistance Time Time In: 1000 Time Out: 1130 DATE: Oct 09, 2022 Total Billed Treatment Time: 90 Total Billed Treatment 90min 1 visit EX x 2 FA x 2 GT x 2 MAGUI MEYERS PT Oct 09, 2022 10:13
--- NOTE | 2022-10-09 11:00 | Occupational Ther Daily Note ---
OT Current Status-Daily Note Subjective Pt in wheelchair in room upon arrival, alert and cooperative, agreed to therapy. Pt mentioned in lots of pain, but couldnt give me a number, said "its above a 5" Mental Status/Objective Patient Orientation: Person, Place, Time, Situation ADL-Treatment Pt in wheelchair, using it to get around room. Pt requested to take a shower. Pt was able to doff all clothing with supervision when standing for safety. Pt bathed self with no assistance needed from therapist. Increased time due to pt being in lots of pain. Pt donned underwear with set up assist, and ambulated to chair in room using grab bars on wall. Therapist will continue to work on dressing and strengthening with pt, focusing on correct technique regarding fracture of clavicle. Pt was left with nursing in room, to help get clothing for pt to dress. All needs where met, and nursing in room. Therapy Code Descriptions/Definitions Functional [place] Measure: 0=Not Assessed/NA 4=Minimal Assistance 1=Total Assistance 5=Supervision or Setup 2=Maximal Assistance 6=Modified [place] 3=Moderate Assistance 7=Complete IndependenceSCALE: Activities may be completed with or without assistive devices. 8-Zvijwkhusa-poahjjg completes the activity by him/herself with no assistance from a helper. 5-Set-up or Clean-up Assistance-helper sets up or cleans up; patient completes activity. [place] assists only prior to or following the activity. 4-Supervision or Touching Assistance-helper provides verbal cues and/or touching/steadying and/or contact guard assistance as patient completes activity . Assistance may be provided throughout the activity or intermittently. 3-Partial/Moderate Assistance-helper does LESS THAN HALF the effort. [place] lifts, holds or supports trunk or limbs, but provides less than half the effort. 2-Substantial/Maximal Assistance-helper does MORE THAN HALF the effort. [place] lifts or holds trunk or limbs and provides more than half the effort. 3-Iowhyfqhy-sqqxba does ALL the effort. Patient does none of the effort to complete the activity. Or, the assistance of 2 or more helpers is required for the patient to complete the activity. If activity was not attempted, code reason: 7-Patient Refused. 9-Not Applicable-not attempted and the patient did not perform the activity before the current illness, exacerbation or injury. 10-Not Attempted due to Environmental Limitations-(lack of equipment, weather restraints, etc.). 88-Not Attempted due to Medical Conditions or Safety Concerns. Oral Hygiene (QC): 5 (seated in shower) Shower/Bathe Self (QC): 5 Upper Body Dressing (QC): 4 Lower Body Dressing (QC): 5 Education OT Patient Education: Energy conservation, Modified ADL techniques, Progress toward Goal/Update tx plan, Purpose of tx/functional activities, Reviewed precautions, Safety issues, Use of adapted equipment Teaching Recipient: Patient Teaching Methods: Discussion Response to Teaching: Verbalize Understanding OT Short Term Goals Short Term Goals Time Frame: Oct 11, 2022 Eatin Oral hygiene: 6 Toileting hygiene: 5 OT Fiction And Nonfiction Writer Prose Goals Jail Goals Acute change in mental status: 0 Inattention: 0 Disorganized thinkin Altered level of consciousness: 0 Eating (QC): 6 Oral Hygiene (QC): 6 Toileting Hygiene (QC): 6 Shower/Bathe Self (QC): 6 Upper Body Dressing (QC): 6 Lower Body Dressing (QC): 6 On/Off Footwear (QC): 6 1=Demonstrate adherence to instructed precautions during ADL tasks. 2=Patient will verbalize/demonstrate understanding of assistive devices/modifications for ADL. 3=Patient will improve strength/tolerance for activity to enable patient to perform ADL's. OT Education/Plan Problem List/Assessment Assessment: Decreased Safety Aware, Decreased UE Strength Discharge Recommendations Plan/Recommendations: Continue POC Treatment Plan/Plan of Care Patient would benefit from OT for education, treatment and training to promote independence in ADL's, mobility, safety and/or upper extremity function for ADL's. Plan of Care: ADL Retraining, Cognitive Retraining, Concurrent Therapy Treatment Duration: Nov 07, 2022 Frequency: At least 5 of 7 days/Wk (IRF) Estimated Hrs Per Day: 1.5 hours per day Agreement: Yes Rehab Potential: Good Time Start Time: 09:00 Stop Time: 10:00 DATE: Oct 09, 2022 Total Time Billed (hr/min): 60 Billed Treatment Time 1 visit ADL 4 (60 min) Denise Grajeda COTA Oct 09, 2022 11:00
--- NOTE | 2022-10-09 15:52 | Occupational Ther Daily Note ---
OT Current Status-Daily Note Subjective Pt sitting in chair in room upon arrival, agreed to therapy, alert and cooperative. ADL-Treatment Pt was instructed to do a strengtheing activity with theraputty and refused to continue after retrieving 3 beads. Therapist moved on to therapy sponge, was demonstrated to pt how to use for strengthening pinch dealmaker. Pt completed 10 reps 2 sets of UE exercises on L arm only (3# wt) due to fracture of R clavicle. R only radial and ulnar deviation, flexion and extension of wrist no weight used. Pt also completed finger dealmaker strengthener on both R and L hand, 5 reps each finger as able. Pt was in lots of pain, nursing notified. Pt was left in chair in room, all needs met, phone and call light within reach. Therapy Code Descriptions/Definitions Functional [place] Measure: 0=Not Assessed/NA 4=Minimal Assistance 1=Total Assistance 5=Supervision or Setup 2=Maximal Assistance 6=Modified [place] 3=Moderate Assistance 7=Complete IndependenceSCALE: Activities may be completed with or without assistive devices. 4-Cotzcmotsb-labxdpk completes the activity by him/herself with no assistance from a helper. 5-Set-up or Clean-up Assistance-helper sets up or cleans up; patient completes activity. [place] assists only prior to or following the activity. 4-Supervision or Touching Assistance-helper provides verbal cues and/or touc rafa/steadying and/or contact guard assistance as patient completes activity. Assistance may be provided throughout the activity or intermittently. 3-Partial/Moderate Assistance-helper does LESS THAN HALF the effort. [place] lifts, holds or supports trunk or limbs, but provides less than half the effort. 2-Substantial/Maximal Assistance-helper does MORE THAN HALF the effort. [place] lifts or holds trunk or limbs and provides more than half the effort. 4-Rfswjpqpx-nilbew does ALL the effort. Patient does none of the effort to complete the activity. Or, the assistance of 2 or more helpers is required for the patient to complete the activity. If activity was not attempted, code reason: 7-Patient Refused. 9-Not Applicable-not attempted and the patient did not perform the activity before the current illness, exacerbation or injury. 10-Not Attempted due to Environmental Limitations-(lack of equipment, weather restraints, etc.). 88-Not Attempted due to Medical Conditions or Safety Concerns. Education OT Patient Education: Correct positioning, Exercise program, Home exercise program OT Short Term Goals Short Term Goals Time Frame: Oct 11, 2022 Eatin Oral hygiene: 6 Toileting hygiene: 5 OT Alf Goals Utility Worker [employer]ge Goals Acute change in mental status: 0 Inattention: 0 Disorganized thinkin Altered level of consciousness: 0 Eating (QC): 6 Oral Hygiene (QC): 6 Toileting Hygiene (QC): 6 Shower/Bathe Self (QC): 6 Upper Body Dressing (QC): 6 Lower Body Dressing (QC): 6 On/Off Footwear (QC): 6 1=Demonstrate adherence to instructed precautions during ADL tasks. 2=Patient will verbalize/demonstrate understanding of assistive devices/modifications for ADL. 3=Patient will improve strength/tolerance for activity to enable patient to per form ADL's. OT Education/Plan Problem List/Assessment Assessment: Decreased Safety Aware Discharge Recommendations Plan/Recommendations: Continue POC Treatment Plan/Plan of Care Patient would benefit from OT for education, treatment and training to promote independence in ADL's, mobility, safety and/or upper extremity function for ADL's. Plan of Care: ADL Retraining, Cognitive Retraining, Concurrent Therapy Treatment Duration: Nov 07, 2022 Frequency: At least 5 of 7 days/Wk (IRF) Estimated Hrs Per Day: 1.5 hours per day Agreement: Yes Rehab Potential: Good Time Start Time: 13:00 Stop Time: 13:00 DATE: Oct 09, 2022 Total Time Billed (hr/min): 30 Billed Treatment Time 1 visit EX 2 (30 min) Denise Grajeda COTA Oct 09, 2022 15:52
[2022-10-09 19:40] VITALS: BP 137/86
[2022-10-10] MEDS: ENOXAPARIN 40 MG/0.4 ML (LOVENOX) SYR SC SCH (05:51)
[2022-10-10] MEDS: inSUlin ASPART (NovoLOG) 1 UNIT/0.01 ML (CHARGE PER UNIT) SC SCH ×7 (06:34→20:52)
[2022-10-10 08:00] VITALS: BP 141/85
[2022-10-10] MEDS: DOCUSATE SODIUM 100 MG (COLACE) CAP PO SCH ×2 (08:09→20:52)
[2022-10-10] MEDS: amLODIPine 5 MG (NORVASC) TAB PO SCH (08:09)
[2022-10-10] MEDS: lisINopril 10 MG (PRINIVIL) TABLET PO SCH (08:09)
[2022-10-10] MEDS: polyethylene glycoL POWDER 17 GM (MIRALAX) PACK PO SCH ×2 (08:09→20:44)
[2022-10-10] MEDS: ASPIRIN 81 MG CHEW (CHILDREN'S ASA) PO SCH (08:09)
[2022-10-10] MEDS: SENNA W/DOCUSATE (SENOKOT S) TABLET PO SCH ×2 (08:09→20:52)
--- NOTE | 2022-10-10 09:33 | Physical Therapy Daily Note ---
PT Daily Note-Current Subjective Pt reports increased pain on this date, but is agreeable to PT. Pt reported R shoulder/rib pain at 7-11/27. Pain Numeric Pain Scale: 7 Location: Right Location Body Site: Shoulder Section J - Health Conditions 1. Rarely or not at all 2. Occasionally 3. Frequently 4. Almost constantly 8. Unable to answer Pain Effect on Sleep: 2 Pain Interference with Therapy: 2 Pain Interference w/Day-to-Day: 2 Mental Status R UE sling Transfers SCALE: Activities may be completed with or without assistive devices. 0-Qpgcpxjvvw-mtavgon completes the activity by him/herself with no assistance from a helper. 5-Set-up or Clean-up Assistance-helper sets up or cleans up; patient completes activity. [place] assists only prior to or following the activity. 4-Supervision or Touching Assistance-helper provides verbal cues and/or touching/steadying and/or contact guard assistance as patient completes activity. Assistance may be provided throughout the activity or intermittently. 3-Partial/Moderate Assistance-helper does LESS THAN HALF the effort. [place] lifts, holds or supports trunk or limbs, but provides less than half the effort. 2-Substantial/Maximal Assistance-helper does MORE THAN HALF the effort. [place] lifts or holds trunk or limbs and provides more than half the effort. 3-Vptszubho-vccdhx does ALL the effort. Patient does none of the effort to complete the activity. Or, the assistance of 2 or more helpers is required for the patient to complete the activity. If activity was not attempted, code reason: 7-Patient Refused. 9-Not Applicable-not attempted and the patient did not perform the activity before the current illness, exacerbation or injury. 10-Not Attempted due to Environmental Limitations-(lack of equipment, weather restraints, etc.). 88-Not Attempted due to Medical Conditions or Safety Concerns. Sit to Stand (QC): 4 Chair/Fse-mx-Xasts Xfer(QC): 4 Car Transfer (QC): 4 Weight Bearing Right Lower Extremity: Right Full Weight Bearing Left Lower Extremity: Left Full Weight Bearing NWB R UE Gait Training Does the Patient Walk?: Yes Walk 10 feet (QC): 4 Walk 50 ft with 2 Turns(QC): 4 Walk 150 ft (QC): 4 Gait Persons Needed: 1 Gait Assistive Device: None Wheelchair Training Does the Pt Use a Wheelchair?: No Treatments Pt demo increased pain and stiffness on this date, and required increased time with all tasks. Pt donned shorts with CGA. Pt ambulated 75ft x 2 and 300ft with no AD and CGA. Pt completed seated B LE Ther Ex x 15 reps each with the red Tband. Pt completed 15 min on the nu-step on level 3. Pt left in room, sitting up in the w/c, with call light in reach and all needs met. Assessment Current Status: Good Progress Pt tolerated PT fair, with increased stiffness/pain; good effort PT Motion Pictures Cartoonist Goals Motion Pictures Cartoonist Goals PT Fpc Goals Time Frame: Oct 17, 2022 Roll Left & Right (QC): 6 Sit to Lying (QC): 6 Lying-Sitting on Side/Bed(QC): 6 Sit to Stand (QC): 6 Chair/Nqv-ac-Oascz Xfer(QC): 6 Toilet Transfer (QC): 6 Car Transfer (QC): 6 Does the Patient Walk: Yes Walk 10 feet (QC): 6 Walk 50ft with 2 Turns (QC): 6 Walk 150 ft (QC): 6 Walking 10ft on Uneven Surface: 6 1 Step (curb) (QC): 6 4 Steps (QC): 6 12 Steps (QC): 6 Picking up an Object (QC): 6 Does the Pt use WC or Scooter?: No Wheel 50 feet with 2 turns (QC: 9 Type: N/A Wheel 150 feet: 9 Type: N/A PT Plan Problem List Problem List: Activity Tolerance, Functional Strength, Safety, Balance, Gait, Transfer, Bed Mobility Treatment/Plan Treatment Plan: Continue Plan of Care Treatment Plan: Bed Mobility, Concurrent Therapy, Education, Functional Activity Tesfaye, Functional Strength, Group Therapy, Gait, Safety, Therapeutic Exercise, Transfers Treatment Duration: Oct 17, 2022 Frequency: At least 5 of 7 days/Wk (IRF) Estimated Hrs Per Day: 1.5 hours per day Patient and/or Family Agrees t: Yes Safety Risks/Education Patient Education: Gait Training, Transfer Techniques, Reviewed Precautions, W/C Management, Safety Issues Teaching Recipient: Patient Teaching Methods: Demonstration, Discussion Response to Teaching: Verbalize Understanding, Return Demonstration, Reinforcement Needed Discharge Recommendations Therapy Discharge Recommendati: Home & Family Equpiment Recommendations-D/C: Shower Chair Discharge Status/Home Program Cont per POC Barriers to Progress pain, NWB R UE Target Placement home with family support Time Time In: 930 Time Out: 1030 DATE: Oct 10, 2022 Total Billed Treatment Time: 60 Total Billed Treatment 60 min 1 visit GT x 1 EX x 1 FA x 2 MAGUI MEYERS PT Oct 10, 2022 09:33
--- NOTE | 2022-10-10 11:34 | Occupational Ther Daily Note ---
OT Current Status-Daily Note Subjective Pt found in room in chair,alert and cooperative Pt stated "im in lots of pain today, and sore". Pt requested a shower. Mental Status/Objective Patient Orientation: Person, Place, Time, Situation ADL-Treatment Pt refused any exercise therapist attempted to do, said he is in too much pain today, but did request a shower. Pt gathered clean clothing for shower independently. Pt completed upper body dressing, lower body dressing independently. Pt ambulated around ARU independently with therapist, focusing on functional balance, and endurance. Therapist showed pt various shower chairs recommended, for home use. Pt ambulated back to room independently with therapist. Pt was left in room in chair, call light and phone within reach, all needs met. Therapy Code Descriptions/Definitions Functional [place] Measure: 0=Not Assessed/NA 4=Minimal Assistance 1=Total Assistance 5=Supervision or Setup 2=Maximal Assistance 6=Modified [place] 3=Moderate Assistance 7=Complete IndependenceSCALE: Activities may be completed with or without assistive devices. 6-Cawomstqza-lponeky completes the activity by him/herself with no assistance from a helper. 5-Set-up or Clean-up Assistance-helper sets up or cleans up; patient completes activity. [place] assists only prior to or following the activity. 4-Supervision or Touching Assistance-helper provides verbal cues and/or touching/steadying and/or contact guard assistance as patient completes activity. Assistance may be provided throughout the activity or intermittently. 3-Partial/Moderate Assistance-helper does LESS THAN HALF the effort. [place] lifts, holds or supports trunk or limbs, but provides less than half the effort. 2-Substantial/Maximal Assistance-helper does MORE THAN HALF the effort. [place] lifts or holds trunk or limbs and provides more than half the effort. 0-Ufuitabwa-augatc does ALL the effort. Patient does none of the effort to complete the activity. Or, the assistance of 2 or more helpers is required for the patient to complete the activity. If activity was not attempted, code reason: 7-Patient Refused. 9-Not Applicable-not attempted and the patient did not perform the activity before the current illness, exacerbation or injury. 10-Not Attempted due to Environmental Limitations-(lack of equipment, weather restraints, etc.). 88-Not Attempted due to Medical Conditions or Safety Concerns. Shower/Bathe Self (QC): 5 Upper Body Dressing (QC): 5 Lower Body Dressing (QC): 5 On/Off Footwear: 2 Education Teaching Recipient: Patient Teaching Methods: Discussion Response to Teaching: Verbalize Understanding OT Short Term Goals Short Term Goals Time Frame: Oct 11, 2022 Eatin Oral hygiene: 6 Toileting hygiene: 5 OT [facility] Goals [facility]ci Goals Acute change in mental status: 0 Inattention: 0 Disorganized thinkin Altered level of consciousness: 0 Eating (QC): 6 Oral Hygiene (QC): 6 Toileting Hygiene (QC): 6 Shower/Bathe Self (QC): 6 Upper Body Dressing (QC): 6 Lower Body Dressing (QC): 6 On/Off Footwear (QC): 6 1=Demonstrate adherence to instructed precautions during ADL tasks. 2=Patient will verbalize/demonstrate understanding of assistive devices/modifications for ADL. 3=Patient will improve strength/tolerance for activity to enable patient to perform ADL's. OT Education/Plan Problem List/Assessment Assessment: Decreased Activ Tolerance, Decreased UE Strength Discharge Recommendations Plan/Recommendations: Continue POC Treatment Plan/Plan of Care Patient would benefit from OT for education, treatment and training to promote independence in ADL's, mobility, safety and/or upper extremity function for ADL's. Plan of Care: ADL Retraining, Cognitive Retraining, Concurrent Therapy Treatment Duration: Nov 07, 2022 Frequency: At least 5 of 7 days/Wk (IRF) Estimated Hrs Per Day: 1.5 hours per day Agreement: Yes Rehab Potential: Good Time Start Time: 11:00 Stop Time: 12:00 DATE: Oct 10, 2022 Total Time Billed (hr/min): 60 Billed Treatment Time 1 Visit ADL 3 (45) FA 1 (15) Denise Grajeda COTA Oct 10, 2022 11:34
--- NOTE | 2022-10-10 12:32 | PM&R Progress Note ---
Subjective HPI/CC On Admission Date Seen by Provider: Oct 10, 2022 Time Seen by Provider: 12:30 Subjective/Events-last exam 10/10/2022: Patient doing a lot better Denies any new issues Rib pain is severe so placed lidocaine patch Blood sugars remain improved 10/09/2022: Patient doing a lot better Moving around better Pain is controlled Pain medication helping Added on ADA recommendations of MALIHA inhibitor and statin and increasing insulin since hemoglobin A1c is 14.8 Review of Systems General: Fatigue, Malaise Objective Exam Vital Signs Vital Signs Date Time Temp Pulse Resp B/P (MAP) Pulse Ox O2 Delivery O2 Flow Rate FiO2 10/10/22 09:00 Room Air 10/10/22 08:00 36.0 71 16 141/85 (103) 10/09/22 19:40 95 Capillary Refill : General Appearance: No Apparent Distress, WD/WN, Chronically ill HEENT: PERRL/EOMI, Normal ENT Inspection, Pharynx Normal Neck: Full Range of Motion, Normal Inspection, Non Tender, Supple, Carotid Bruit Respiratory: Chest Non Tender, Lungs Clear, Normal Breath Sounds, No Accessory Muscle Use, No Respiratory Distress Cardiovascular: Regular Rate, Rhythm, No Edema, No Gallop, No JVD, No Murmur, Normal Peripheral Pulses Gastrointestinal: Normal Bowel Sounds, No Organomegaly, No Pulsatile Mass, Non Tender, Soft Back: Normal Inspection, No CVA Tenderness, No Vertebral Tenderness Extremity: Normal Capillary Refill, Normal Inspection, Normal Range of Motion (Except right arm), Non Tender, No Calf Tenderness, No Pedal Edema Neurologic/Psychiatric: Alert, Oriented x3, 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 FIM Transfers Therapy Code Descriptions/Definitions Functional [place] Measure: 0=Not Assessed/NA 4=Minimal Assistance 1=Total Assistance 5=Supervision or Setup 2=Maximal Assistance 6=Modified [place] 3=Moderate Assistance 7=Complete IndependenceSCALE: Activities may be completed with or without assistive devices. 3-Clzypwwdvt-ejbqezm completes the activity by him/herself with no assistance from a helper. 5-Set-up or Clean-up Assistance-helper sets up or cleans up; patient completes activity. [place] assists only prior to or following the activity. 4-Supervision or Touching Assistance-helper provides verbal cues and/or touching/steadying and/or contact guard assistance as patient completes activity. Assistance may be provided throughout the activity or intermittently. 3-Partial/Moderate Assistance-helper does LESS THAN HALF the effort. [place] lifts, holds or supports trunk or limbs, but provides less than half the effort. 2-Substantial/Maximal Assistance-helper does MORE THAN HALF the effort. [place] lifts or holds trunk or limbs and provides more than half the effort. 7-Urunrmghf-tiypbp does ALL the effort. Patient does none of the effort to complete the activity. Or, the assistance of 2 or more helpers is required for the patient to complete the activity. If activity was not attempted, code reason: 7-Patient Refused. 9-Not Applicable-not attempted and the patient did not perform the activity before the current illness, exacerbation or injury. 10-Not Attempted due to Environmental Limitations-(lack of equipment, weather restraints, etc.). 88-Not Attempted due to Medical Conditions or Safety Concerns. Roll Left to Right (QC): 3 Sit to Lying (QC): 4 Sit to Stand (QC): 4 Chair/Gla-tc-Nvawn Xfer(QC): 4 Car Transfer (QC): 4 Gait Training Does the Patient Walk?: Yes Distance: 300ft x 2 Walk 10 feet (QC): 4 Walk 50 ft with 2 Turns(QC): 4 Walk 150 ft (QC): 4 Walking 10ft/uneven surface-QC: 4 Gait Persons Needed: 1 Gait Assistive Device: None Wheelchair Training Does the Pt Use a Wheelchair?: No Wheel 50 ft with 2 turns (QC): 9 Wheel 150 ft (QC): 9 Type of Wheelchair: N/A Stair Training #of Steps: 12 1 Step (curb) (QC): 4 4 Steps (QC): 4 12 Steps (QC): 4 Balance Picking up an Object (QC): 4 ADL-Treatment Eating (QC): 5 (RIGHT HANDED) Oral Hygiene (QC): 5 (seated in shower) Shower/Bathe Self (QC): 3 Upper Body Dressing (QC): 4 Lower Body Dressing (QC): 4 On/Off Footwear (QC): 4 Toileting Hygiene (QC): 4 Assessment/Plan Assessment and Plan Assess & Plan/Chief Complaint Assessment: Fall off horse and found down in field with right clavicle fracture History of TBI History of foot drop Multiple falls Diabetes noncompliant with insulin Hemoglobin A1c 14.8 CAD previous stents Hyperlipidemia Depression Hypertension Plan: Aggressive PT and OT Fall risk Insulin Blood pressure meds 10/09/2022: Add statin Add MALIHA inhibitor Increase insulin 10/10/2022: Adjust insulin Lidocaine patch to ribs (1) Right clavicle fracture (2) Diabetes (3) Noncompliance (4) Foot drop (5) TBI (traumatic brain injury) (6) Rib pain on right side (7) Coronary artery disease Status: Acute (8) Hyperlipemia Onset Date: 01/04/2014 Status: Acute TOM AGUIRRE DO Oct 10, 2022 12:32
[2022-10-10] MEDS: LIDOCAINE 4% (SALONPAS) PATCH TOP SCH (13:02)
--- NOTE | 2022-10-10 14:29 | Therapy Group Daily Note ---
Therapy Daily Group Note Patient Education Topic Home Safety Exercises LE Seated Exercise, UE Exercise Session Ratio (pt:therapist): 3:1 Goal of Session: Education on ARU Expectations, Home Safety Strategies, UE/LE Strengthing, Use of Adaptive Equipment Goal Met for this Session: Yes Pt Benefit of Group: Contributions to Others, F/U Use of Strategies @Home, Increased Functional Safety, Increased Functional Strength, Improved Cognition, Recognition of Peers, Socialization Other/Notes Pt ambulated using FWW to therapy gym for OT group. Group consisted of introductions (name, place living, favorite restaurant), socialization, B UE/LE seated exercises and educational topic on home safety/AE. Pt introduced self a ppropriately and actively listened to peers. Pt was able to verbalize understanding of educational topic by answering trivia questions on topic and give personal strategies used at home. Pt able to complete B UE/LE exercises without difficulty. After session, pt sitting EOB with call light/phone in reach. All needs met in room. Start Time: 13:00 Stop Time: 14:00 Total Billed Treatment Time: 60 Total Billed Treatment 1 visit-ELIER ELDER Oct 10, 2022 14:29
[2022-10-10 20:45] VITALS: BP 125/78
[2022-10-10] MEDS: LIDOCAINE PATCH REMOVAL TP SCH (21:34)
--- NOTE | 2022-10-11 06:43 | PM&R Progress Note ---
Subjective HPI/CC On Admission Date Seen by Provider: Oct 11, 2022 Time Seen by Provider: 12:00 Subjective/Events-last exam 10/11/2022: Improved overall Sleeping today No falls Rib pain improved on Lidocaine patch 10/10/2022: Patient doing a lot better Denies any new issues Rib pain is severe so placed lidocaine patch Blood sugars remain improved 10/09/2022: Patient doing a lot better Moving around better Pain is controlled Pain medication helping Added on ADA recommendations of MALIHA inhibitor and statin and increasing insulin since hemoglobin A1c is 14.8 Review of Systems General: Fatigue, Malaise Objective Exam Vital Signs Vital Signs Date Time Temp Pulse Resp B/P (MAP) Pulse Ox O2 Delivery O2 Flow Rate FiO2 10/11/22 09:00 Room Air 10/11/22 07:56 36.6 73 18 124/71 (88) 94 Capillary Refill : General Appearance: No Apparent Distress, WD/WN, Chronically ill HEENT: PERRL/EOMI, Normal ENT Inspection, Pharynx Normal Neck: Full Range of Motion, Normal Inspection, Non Tender, Supple, Carotid Bruit Respiratory: Chest Non Tender, Lungs Clear, Normal Breath Sounds, No Accessory Muscle Use, No Respiratory Distress Cardiovascular: Regular Rate, Rhythm, No Edema, No Gallop, No JVD, No Murmur, Normal Peripheral Pulses Gastrointestinal: Normal Bowel Sounds, No Organomegaly, No Pulsatile Mass, Non Tender, Soft Back: Normal Inspection, No CVA Tenderness, No Vertebral Tenderness Extremity: Normal Capillary Refill, Normal Inspection, Normal Range of Motion (Except right arm), Non Tender, No Calf Tenderness, No Pedal Edema Neurologic/Psychiatric: Alert, Oriented x3, 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 FIM Transfers Therapy Code Descriptions/Definitions Functional [place] Measure: 0=Not Assessed/NA 4=Minimal Assistance 1=Total Assistance 5=Supervision or Setup 2=Maximal Assistance 6=Modified [place] 3=Moderate Assistance 7=Complete IndependenceSCALE: Activities may be completed with or without assistive devices. 3-Gpldrsehll-bjamkir completes the activity by him/herself with no assistance from a helper. 5-Set-up or Clean-up Assistance-helper sets up or cleans up; patient completes activity. [place] assists only prior to or following the activity. 4-Supervision or Touching Assistance-helper provides verbal cues and/or touching/steadying and/or contact guard assistance as patient completes activity. Assistance may be provided throughout the activity or intermittently. 3-Partial/Moderate Assistance-helper does LESS THAN HALF the effort. [place] lifts, holds or supports trunk or limbs, but provides less than half the effort. 2-Substantial/Maximal Assistance-helper does MORE THAN HALF the effort. [place] lifts or holds trunk or limbs and provides more than half the effort. 6-Hovylpzyv-slqonw does ALL the effort. Patient does none of the effort to complete the activity. Or, the assistance of 2 or more helpers is required for the patient to complete the activity. If activity was not attempted, code reason: 7-Patient Refused. 9-Not Applicable-not attempted and the patient did not perform the activity before the current illness, exacerbation or injury. 10-Not Attempted due to Environmental Limitations-(lack of equipment, weather restraints, etc.). 88-Not Attempted due to Medical Conditions or Safety Concerns. Roll Left to Right (QC): 3 Sit to Lying (QC): 4 Sit to Stand (QC): 4 Chair/Tba-ft-Hfntn Xfer(QC): 4 Car Transfer (QC): 4 Gait Training Does the Patient Walk?: Yes Distance: 300ft x 2 Walk 10 feet (QC): 4 Walk 50 ft with 2 Turns(QC): 4 Walk 150 ft (QC): 4 Walking 10ft/uneven surface-QC: 4 Gait Persons Needed: 1 Gait Assistive Device: None Wheelchair Training Does the Pt Use a Wheelchair?: No Wheel 50 ft with 2 turns (QC): 9 Wheel 150 ft (QC): 9 Type of Wheelchair: N/A Stair Training #of Steps: 12 1 Step (curb) (QC): 4 4 Steps (QC): 4 12 Steps (QC): 4 Balance Picking up an Object (QC): 4 ADL-Treatment Eating (QC): 5 (RIGHT HANDED) Oral Hygiene (QC): 5 (seated in shower) Shower/Bathe Self (QC): 5 Upper Body Dressing (QC): 5 Lower Body Dressing (QC): 5 On/Off Footwear (QC): 2 Toileting Hygiene (QC): 4 Assessment/Plan Assessment and Plan Assess & Plan/Chief Complaint Assessment: Fall off horse and found down in field with right clavicle fracture History of TBI History of foot drop Multiple falls Diabetes noncompliant with insulin Hemoglobin A1c 14.8 CAD previous stents Hyperlipidemia Depression Hypertension Plan: Aggressive PT and OT Fall risk Insulin Blood pressure meds 10/09/2022: Add statin Add MALIHA inhibitor Increase insulin 10/10/2022: Adjust insulin Lidocaine patch to ribs 10/11/2022: Monitor pain Sugars are very labile (1) Right clavicle fracture (2) Diabetes (3) Noncompliance (4) Foot drop (5) TBI (traumatic brain injury) (6) Rib pain on right side (7) Coronary artery disease Status: Acute (8) Hyperlipemia Onset Date: 01/04/2014 Status: Acute TOM AGUIRRE DO Oct 11, 2022 06:43
[2022-10-11] MEDS: ENOXAPARIN 40 MG/0.4 ML (LOVENOX) SYR SC SCH (06:49)
[2022-10-11] MEDS: inSUlin ASPART (NovoLOG) 1 UNIT/0.01 ML (CHARGE PER UNIT) SC SCH ×7 (07:29→21:03)
[2022-10-11 07:56] VITALS: BP 124/71
[2022-10-11] MEDS: lisINopril 10 MG (PRINIVIL) TABLET PO SCH (08:26)
[2022-10-11] MEDS: SENNA W/DOCUSATE (SENOKOT S) TABLET PO SCH ×2 (08:26→21:04)
[2022-10-11] MEDS: ASPIRIN 81 MG CHEW (CHILDREN'S ASA) PO SCH (08:26)
[2022-10-11] MEDS: DOCUSATE SODIUM 100 MG (COLACE) CAP PO SCH ×2 (08:27→21:04)
[2022-10-11] MEDS: LIDOCAINE 4% (SALONPAS) PATCH TOP SCH (08:27)
[2022-10-11] MEDS: polyethylene glycoL POWDER 17 GM (MIRALAX) PACK PO SCH ×2 (08:27→21:03)
[2022-10-11] MEDS: amLODIPine 5 MG (NORVASC) TAB PO SCH (08:28)
[2022-10-11] MEDS: HYDROcodone/APAP 5 MG/325 MG (LORTAB) TAB PO PRN ×2 (12:46→21:04)
[2022-10-11 19:34] VITALS: BP 148/80
[2022-10-11] MEDS: LIDOCAINE PATCH REMOVAL TP SCH (21:07)
[2022-10-12] MEDS: HYDROcodone/APAP 5 MG/325 MG (LORTAB) TAB PO PRN ×4 (04:22→21:27)
[2022-10-12] MEDS: ENOXAPARIN 40 MG/0.4 ML (LOVENOX) SYR SC SCH (06:02)
[2022-10-12] MEDS: inSUlin ASPART (NovoLOG) 1 UNIT/0.01 ML (CHARGE PER UNIT) SC SCH ×6 (06:39→20:19)
--- NOTE | 2022-10-12 06:56 | PM&R Progress Note ---
Subjective HPI/CC On Admission Date Seen by Provider: Oct 12, 2022 Time Seen by Provider: 12:00 Subjective/Events-last exam 10/12/2022: Patient doing a lot better Lortab helping with the pain and not making him drowsy like oxycodone Reviewed labs Blood sugars better Blood pressure better 10/11/2022: Improved overall Sleeping today No falls Rib pain improved on Lidocaine patch 10/10/2022: Patient doing a lot better Denies any new issues Rib pain is severe so placed lidocaine patch Blood sugars remain improved 10/09/2022: Patient doing a lot better Moving around better Pain is controlled Pain medication helping Added on ADA recommendations of MALIHA inhibitor and statin and increasing insulin since hemoglobin A1c is 14.8 Review of Systems General: Fatigue, Malaise Objective Exam Vital Signs Vital Signs Date Time Temp Pulse Resp B/P (MAP) Pulse Ox O2 Delivery O2 Flow Rate FiO2 10/12/22 09:00 Room Air 10/12/22 08:00 36.6 65 18 178/93 (121) 97 Capillary Refill : General Appearance: No Apparent Distress, WD/WN, Chronically ill HEENT: PERRL/EOMI, Normal ENT Inspection, Pharynx Normal Neck: Full Range of Motion, Normal Inspection, Non Tender, Supple, Carotid Bruit Respiratory: Chest Non Tender, Lungs Clear, Normal Breath Sounds, No Accessory Muscle Use, No Respiratory Distress Cardiovascular: Regular Rate, Rhythm, No Edema, No Gallop, No JVD, No Murmur, Normal Peripheral Pulses Gastrointestinal: Normal Bowel Sounds, No Organomegaly, No Pulsatile Mass, Non Tender, Soft Back: Normal Inspection, No CVA Tenderness, No Vertebral Tenderness Extremity: Normal Capillary Refill, Normal Inspection, Normal Range of Motion (Except right arm), Non Tender, No Calf Tenderness, No Pedal Edema Neurologic/Psychiatric: Alert, 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 FIM Transfers Therapy Code Descriptions/Definitions Functional [place] Measure: 0=Not Assessed/NA 4=Minimal Assistance 1=Total Assistance 5=Supervision or Setup 2=Maximal Assistance 6=Modified [place] 3=Moderate Assistance 7=Complete IndependenceSCALE: Activities may be completed with or without assistive devices. 9-Gcnfvrbbvo-hrvktby completes the activity by him/herself with no assistance f rom a helper. 5-Set-up or Clean-up Assistance-helper sets up or cleans up; patient completes activity. [place] assists only prior to or following the activity. 4-Supervision or Touching Assistance-helper provides verbal cues and/or touching/steadying and/or contact guard assistance as patient completes activity. Assistance may be provided throughout the activity or intermittently. 3-Partial/Moderate Assistance-helper does LESS THAN HALF the effort. [place] lifts, holds or supports trunk or limbs, but provides less than half the effort. 2-Substantial/Maximal Assistance-helper does MORE THAN HALF the effort. [place] lifts or holds trunk or limbs and provides more than half the effort. 1-Bdhhuuncc-tninhl does ALL the effort. Patient does none of the effort to complete the activity. Or, the assistance of 2 or more helpers is required for the patient to complete the activity. If activity was not attempted, code reason: 7-Patient Refused. 9-Not Applicable-not attempted and the patient did not perform the activity before the current illness, exacerbation or injury. 10-Not Attempted due to Environmental Limitations-(lack of equipment, weather restraints, etc.). 88-Not Attempted due to Medical Conditions or Safety Concerns. Roll Left to Right (QC): 3 Sit to Lying (QC): 4 Sit to Stand (QC): 4 Chair/Dnu-vt-Ptydn Xfer(QC): 4 Car Transfer (QC): 4 Gait Training Does the Patient Walk?: Yes Distance: 300ft x 2 Walk 10 feet (QC): 4 Walk 50 ft with 2 Turns(QC): 4 Walk 150 ft (QC): 4 Walking 10ft/uneven surface-QC: 4 Gait Persons Needed: 1 Gait Assistive Device: None Wheelchair Training Does the Pt Use a Wheelchair?: No Wheel 50 ft with 2 turns (QC): 9 Wheel 150 ft (QC): 9 Type of Wheelchair: N/A Stair Training #of Steps: 12 1 Step (curb) (QC): 4 4 Steps (QC): 4 12 Steps (QC): 4 Balance Picking up an Object (QC): 4 ADL-Treatment Eating (QC): 5 (RIGHT HANDED) Oral Hygiene (QC): 5 (seated in shower) Shower/Bathe Self (QC): 5 Upper Body Dressing (QC): 5 Lower Body Dressing (QC): 5 On/Off Footwear (QC): 2 Toileting Hygiene (QC): 4 Assessment/Plan Assessment and Plan Assess & Plan/Chief Complaint Assessment: Fall off horse and found down in field with right clavicle fracture History of TBI History of foot drop Multiple falls Diabetes noncompliant with insulin Hemoglobin A1c 14.8 CAD previous stents Hyperlipidemia Depression Hypertension Plan: Aggressive PT and OT Fall risk Insulin Blood pressure meds 10/09/2022: Add statin Add MALIHA inhibitor Increase insulin 10/10/2022: Adjust insulin Lidocaine patch to ribs 10/11/2022: Monitor pain Sugars are very labile 10/12/2022: Fine-tune insulin regimen (1) Right clavicle fracture (2) Diabetes (3) Noncompliance (4) Foot drop (5) TBI (traumatic brain injury) (6) Rib pain on right side (7) Coronary artery disease Status: Acute (8) Hyperlipemia Onset Date: 01/04/2014 Status: Acute TOM AGUIRRE DO Oct 12, 2022 06:56
[2022-10-12 08:00] VITALS: BP 178/93
[2022-10-12] MEDS: SENNA W/DOCUSATE (SENOKOT S) TABLET PO SCH ×2 (08:26→21:26)
[2022-10-12] MEDS: amLODIPine 5 MG (NORVASC) TAB PO SCH (08:26)
[2022-10-12] MEDS: lisINopril 10 MG (PRINIVIL) TABLET PO SCH (08:26)
[2022-10-12] MEDS: ASPIRIN 81 MG CHEW (CHILDREN'S ASA) PO SCH (08:26)
[2022-10-12] MEDS: DOCUSATE SODIUM 100 MG (COLACE) CAP PO SCH ×2 (08:27→21:26)
[2022-10-12] MEDS: polyethylene glycoL POWDER 17 GM (MIRALAX) PACK PO SCH ×2 (08:27→21:26)
[2022-10-12] MEDS: LIDOCAINE 4% (SALONPAS) PATCH TOP SCH (08:29)
[2022-10-12 09:20] VITALS: BP 129/73
[2022-10-12] MEDS ORDERED: inSUlin ASPART (NovoLOG) 1 UNIT/0.01 ML (CHARGE PER UNIT) SC SCH (17:00)
[2022-10-12 19:28] VITALS: BP 121/71
[2022-10-12] MEDS: LIDOCAINE PATCH REMOVAL TP SCH (19:45)
[2022-10-13] MEDS: ENOXAPARIN 40 MG/0.4 ML (LOVENOX) SYR SC SCH (05:51)
[2022-10-13 06:01] LABS: BASOPHILS % (AUTO) 1 % (0-10); EOSINOPHILS # (AUTO) 0.1 10^3/uL (0.0-0.3); EOSINOPHILS % (AUTO) 2 % (0-10); HEMATOCRIT 39 % (40-54); HEMOGLOBIN 13.4 g/dL (13.3-17.7); LYMPHOCYTES # (AUTO) 1.8 10^3/uL (1.0-4.0); LYMPHOCYTES % (AUTO) 25 % (12-44); MEAN CORPUSCULAR HEMOGLOBIN 31 pg (25-34); MEAN CORPUSCULAR HGB CONC 34 g/dL (32-36); MEAN CORPUSCULAR VOLUME 91 fL (80-99); MEAN PLATELET VOLUME 10.6 fL (9.0-12.2); MONOCYTES # (AUTO) 0.6 10^3/uL (0.0-1.0); MONOCYTES % (AUTO) 8 % (0-12); NEUTROPHILS # (AUTO) 4.8 10^3/uL (1.8-7.8); NEUTROPHILS % (AUTO) 65 % (42-75); PLATELET COUNT 202 10^3/uL (130-400); WHITE BLOOD COUNT 7.4 10^3/uL (4.3-11.0)
--- NOTE | 2022-10-13 06:01 | PM&R Progress Note ---
Subjective HPI/CC On Admission Date Seen by Provider: Oct 13, 2022 Time Seen by Provider: 10:00 Subjective/Events-last exam 10/13/2022: Diabetes is brittle Discharge is planned for tomorrow No falls No pain 10/12/2022: Patient doing a lot better Lortab helping with the pain and not making him drowsy like oxycodone Reviewed labs Blood sugars better Blood pressure better 10/11/2022: Improved overall Sleeping today No falls Rib pain improved on Lidocaine patch 10/10/2022: Patient doing a lot better Denies any new issues Rib pain is severe so placed lidocaine patch Blood sugars remain improved 10/09/2022: Patient doing a lot better Moving around better Pain is controlled Pain medication helping Added on ADA recommendations of MALIHA inhibitor and statin and increasing insulin since hemoglobin A1c is 14.8 Review of Systems General: Fatigue, Malaise Objective Exam Vital Signs Vital Signs Date Time Temp Pulse Resp B/P (MAP) Pulse Ox O2 Delivery O2 Flow Rate FiO2 10/13/22 21:40 95 Room Air 10/13/22 19:43 36.7 70 20 127/72 (90) Capillary Refill : General Appearance: No Apparent Distress, WD/WN, Chronically ill HEENT: PERRL/EOMI, Normal ENT Inspection, Pharynx Normal Neck: Full Range of Motion, Normal Inspection, Non Tender, Supple, Carotid Bruit Respiratory: Chest Non Tender, Lungs Clear, Normal Breath Sounds, No Accessory Muscle Use, No Respiratory Distress Cardiovascular: Regular Rate, Rhythm, No Edema, No Gallop, No JVD, No Murmur, Normal Peripheral Pulses Gastrointestinal: Normal Bowel Sounds, No Organomegaly, No Pulsatile Mass, Non Tender, Soft Back: Normal Inspection, No CVA Tenderness, No Vertebral Tenderness Extremity: Normal Capillary Refill, Normal Inspection, Normal Range of Motion (Except right arm), Non Tender, No Calf Tenderness, No Pedal Edema Neurologic/Psychiatric: Alert, 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 FIM Transfers Therapy Code Descriptions/Definitions Functional [place] Measure: 0=Not Assessed/NA 4=Minimal Assistance 1=Total Assistance 5=Supervision or Setup 2=Maximal Assistance 6=Modified [place] 3=Moderate Assistance 7=Complete IndependenceSCALE: Activities may be completed with or without assistive devices. 7-Nznjazueju-fnmavpi completes the activity by him/herself with no assistance from a helper. 5-Set-up or Clean-up Assistance-helper sets up or cleans up; patient completes activity. [place] assists only prior to or following the activity. 4-Supervision or Touching Assistance-helper provides verbal cues and/or touching/steadying and/or contact guard assistance as patient completes activity. Assistance may be provided throughout the activity or intermittently. 3-Partial/Moderate Assistance-helper does LESS THAN HALF the effort. [place] lifts, holds or supports trunk or limbs, but provides less than half the effort. 2-Substantial/Maximal Assistance-helper does MORE THAN HALF the effort. [place] lifts or holds trunk or limbs and provides more than half the effort. 4-Ovzbparvt-dyfvhg does ALL the effort. Patient does none of the effort to complete the activity. Or, the assistance of 2 or more helpers is required for the patient to complete the activity. If activity was not attempted, code reason: 7-Patient Refused. 9-Not Applicable-not attempted and the patient did not perform the activity before the current illness, exacerbation or injury. 10-Not Attempted due to Environmental Limitations-(lack of equipment, weather restraints, etc.). 88-Not Attempted due to Medical Conditions or Safety Concerns. Roll Left to Right (QC): 3 Sit to Lying (QC): 4 Sit to Stand (QC): 4 Chair/Zvy-hg-Dhdlo Xfer(QC): 4 Car Transfer (QC): 4 Gait Training Does the Patient Walk?: Yes Distance: 300ft x 2 Walk 10 feet (QC): 4 Walk 50 ft with 2 Turns(QC): 4 Walk 150 ft (QC): 4 Walking 10ft/uneven surface-QC: 4 Gait Persons Needed: 1 Gait Assistive Device: None Wheelchair Training Does the Pt Use a Wheelchair?: No Wheel 50 ft with 2 turns (QC): 9 Wheel 150 ft (QC): 9 Type of Wheelchair: N/A Stair Training #of Steps: 12 1 Step (curb) (QC): 4 4 Steps (QC): 4 12 Steps (QC): 4 Balance Picking up an Object (QC): 4 ADL-Treatment Eating (QC): 5 (RIGHT HANDED) Oral Hygiene (QC): 5 (seated in shower) Shower/Bathe Self (QC): 5 Upper Body Dressing (QC): 5 Lower Body Dressing (QC): 5 On/Off Footwear (QC): 2 Toileting Hygiene (QC): 4 Assessment/Plan Assessment and Plan Assess & Plan/Chief Complaint Assessment: Fall off horse and found down in field with right clavicle fracture History of TBI History of foot drop Multiple falls Diabetes noncompliant with insulin Hemoglobin A1c 14.8 CAD previous stents Hyperlipidemia Depression Hypertension Plan: Aggressive PT and OT Fall risk Insulin Blood pressure meds 10/09/2022: Add statin Add MALIHA inhibitor Increase insulin 10/10/2022: Adjust insulin Lidocaine patch to ribs 10/11/2022: Monitor pain Sugars are very labile 10/12/2022: Fine-tune insulin regimen 10/13/2022: Supportive care (1) Right clavicle fracture (2) Diabetes (3) Noncompliance (4) Foot drop (5) TBI (traumatic brain injury) (6) Rib pain on right side (7) Coronary artery disease Status: Acute (8) Hyperlipemia Onset Date: 01/04/2014 Status: Acute TOM AGUIRRE DO Oct 13, 2022 06:01
[2022-10-13 06:25] LABS: ALBUMIN 3.3 GM/DL (3.2-4.5); BILIRUBIN,TOTAL 0.4 MG/DL (0.1-1.0); CALCIUM 8.8 MG/DL (8.5-10.1); CREATININE SERUM 0.77 MG/DL (0.60-1.30); POTASSIUM 4.4 MMOL/L (3.6-5.0); TOTAL PROTEIN 5.9 GM/DL (6.4-8.2)
[2022-10-13] MEDS: inSUlin ASPART (NovoLOG) 1 UNIT/0.01 ML (CHARGE PER UNIT) SC SCH ×7 (06:54→21:54)
[2022-10-13] MEDS: HYDROcodone/APAP 5 MG/325 MG (LORTAB) TAB PO PRN ×4 (07:30→19:36)
[2022-10-13] MEDS: ASPIRIN 81 MG CHEW (CHILDREN'S ASA) PO SCH (07:33)
[2022-10-13] MEDS: lisINopril 10 MG (PRINIVIL) TABLET PO SCH (07:33)
[2022-10-13] MEDS: SENNA W/DOCUSATE (SENOKOT S) TABLET PO SCH ×2 (07:34→21:54)
[2022-10-13] MEDS: amLODIPine 5 MG (NORVASC) TAB PO SCH (07:34)
[2022-10-13] MEDS: DOCUSATE SODIUM 100 MG (COLACE) CAP PO SCH ×2 (07:34→21:55)
[2022-10-13 07:54] VITALS: BP_SYST 121; BP_SYST 153; BP_DIAS 71; BP_DIAS 82
--- NOTE | 2022-10-13 08:46 | Physical Therapy Daily Note ---
PT Daily Note-Current Subjective Pt reports increased pain on this date, but is agreeable to QCs and treatment. Pt reported R shoulder/rib pain at 7/10 at start of treatment. After icing the R shoulder, pt reported pain at 6/10. Pain Numeric Pain Scale: 7 Location: Right Location Body Site: Shoulder Pain Description: Sharp Section J - Health Conditions 1. Rarely or not at all 2. Occasionally 3. Frequently 4. Almost constantly 8. Unable to answer Pain Effect on Sleep: 2 Pain Interference with Therapy: 3 Pain Interference w/Day-to-Day: 3 Appearance Pt appears in increased pain on this date with increased grimacing and moaning. Nursing notified and pain pills were given, as well as a pain patch applied to the R shoulder area. Mental Status R UE sling Transfers SCALE: Activities may be completed with or without assistive devices. 6-Hgbouehdhg-ckdvjkb completes the activity by him/herself with no assistance from a helper. 5-Set-up or Clean-up Assistance-helper sets up or cleans up; patient completes activity. [place] assists only prior to or following the activity. 4-Supervision or Touching Assistance-helper provides verbal cues and/or touching/steadying and/or contact guard assistance as patient completes activity. Assistance may be provided throughout the activity or intermittently. 3-Partial/Moderate Assistance-helper does LESS THAN HALF the effort. [place] lifts, holds or supports trunk or limbs, but provides less than half the effort. 2-Substantial/Maximal Assistance-helper does MORE THAN HALF the effort. [place] lifts or holds trunk or limbs and provides more than half the effort. 2-Jyjbbryzd-ziytld does ALL the effort. Patient does none of the effort to complete the activity. Or, the assistance of 2 or more helpers is required for the patient to complete the activity. If activity was not attempted, code reason: 7-Patient Refused. 9-Not Applicable-not attempted and the patient did not perform the activity before the current illness, exacerbation or injury. 10-Not Attempted due to Environmental Limitations-(lack of equipment, weather restraints, etc.). 88-Not Attempted due to Medical Conditions or Safety Concerns. Roll Left & Right (QC): 6 Sit to Lying (QC): 6 Lying to Sitting/Side of Bed(Q: 6 Sit to Stand (QC): 6 Chair/Ebp-bz-Serfd Xfer(QC): 6 Toilet Transfer (QC): 6 Car Transfer (QC): 6 Weight Bearing Right Lower Extremity: Right Full Weight Bearing Left Lower Extremity: Left Full Weight Bearing NWB R UE Gait Training Does the Patient Walk?: Yes Distance: 300ft Walk 10 feet (QC): 4 (SBA/CGA for safety, due to increased pain leading to unsteadiness ) Walk 50 ft with 2 Turns(QC): 4 (SBA/CGA for safety, due to increased pain leading to unsteadiness ) Walk 150 ft (QC): 4 (SBA/CGA for safety, due to increased pain leading to unsteadiness ) Walking 10ft/uneven surface-QC: 4 (SBA/CGA for safety, due to increased pain leading to unsteadiness ) Gait Persons Needed: 1 Gait Assistive Device: None Wheelchair Training Does the Pt Use a Wheelchair?: Yes Wheel 50 ft with 2 turns (QC): 6 Wheel 150 ft (QC): 6 Type of Wheelchair: Manual Stair Training Stair Training: Handrails/: 1 handrail #of Steps: 4 (SBA/CGA for safety, due to increased pain leading to unsteadiness ) 1 Step (curb) (QC): 4 (SBA/CGA for safety, due to increased pain leading to unsteadiness ) 4 Steps (QC): 4 (SBA/CGA for safety, due to increased pain leading to unsteadiness ) 12 Steps (QC): 4 (SBA/CGA for safety, due to increased pain leading to unsteadiness ) Stairs: Pattern: Reciprocal Balance Picking up an Object (QC): 6 Special Test Comments [facility] standing balance scale = 4+/5 Treatments QCs completed on this date. Pt is Mod I with bed mobility and functional transfers. Pt is Mod I with w/c mobility. Pt cont to require SBA/CGA for ambulation and stairs, secondary to increased pain making him unsteady on his feet. Pt is able to ambulate 300ft with no AD and SBA/CGA. Pt is able to negotiate 12 steps with 1 HR and SBA/CGA. Pain meds, pain patch, and ice were utilized throughout treatment to help with pain. Pt reports some relief, but high pain levels. Pt reported R shoulder pain at 09/27 at end of treatment. Pt edu and completed seated B LE Ther Ex x 15 reps each with the red Tband. Pt left in recliner at end of treatment, with call light in reach and all needs met. Assessment Current Status: Good Progress Pt has made good progress mobility loz[place], but cont to have increased pain, which limits mobility and safety at times. PT Usp Goals Usp Goals PT Usp Goals Time Frame: Oct 17, 2022 Roll Left & Right (QC): 6 Sit to Lying (QC): 6 Lying-Sitting on Side/Bed(QC): 6 Sit to Stand (QC): 6 Chair/Wxl-xu-Sqiam Xfer(QC): 6 Toilet Transfer (QC): 6 Car Transfer (QC): 6 Does the Patient Walk: Yes Walk 10 feet (QC): 6 Walk 50ft with 2 Turns (QC): 6 Walk 150 ft (QC): 6 Walking 10ft on Uneven Surface: 6 1 Step (curb) (QC): 6 4 Steps (QC): 6 12 Steps (QC): 6 Picking up an Object (QC): 6 Does the Pt use WC or Scooter?: No Wheel 50 feet with 2 turns (QC: 9 Type: N/A Wheel 150 feet: 9 Type: N/A PT Plan Problem List Problem List: Activity Tolerance, Functional Strength, Safety, Balance, Gait, Transfer, Bed Mobility, Other (Increased pain ) Treatment/Plan Treatment Plan: Continue Plan of Care Treatment Plan: Bed Mobility, Concurrent Therapy, Education, Functional Activity [place], Functional Strength, Group Therapy, Gait, Safety, Therapeutic Exercise, Transfers Treatment Duration: Oct 17, 2022 Frequency: At least 5 of 7 days/Wk (IRF) Estimated Hrs Per Day: 1.5 hours per day Patient and/or Family Agrees t: Yes Safety Risks/Education Patient Education: Gait Training, Transfer Techniques, Steps, Issued Written HEP, Reviewed Precautions, Reviewed Use of Ice, Correct Positioning, W/C Management, Safety Issues Teaching Recipient: Patient Teaching Methods: Demonstration, Discussion Response to Teaching: Verbalize Understanding, Return Demonstration, Reinforcement Needed Discharge Recommendations Therapy Discharge Recommendati: Home & Family Equpiment Recommendations-D/C: Shower Chair Discharge Status/Home Program Cont per POC; D/C scheduled for 10/14/22 Barriers to Progress Increased pain Target Placement Home with family assistance Time Time In: 800 Time Out: 930 DATE: Oct 13, 2022 Total Billed Treatment Time: 90 Total Billed Treatment 90 min 1 visit EX x 1 GT x 2 FA x 3 MAGUI MEYERS PT Oct 13, 2022 08:46
[2022-10-13] MEDS: LIDOCAINE 4% (SALONPAS) PATCH TOP SCH (08:49)
[2022-10-13] MEDS: polyethylene glycoL POWDER 17 GM (MIRALAX) PACK PO SCH ×2 (10:13→21:55)
--- NOTE | 2022-10-13 12:42 | Occupational Ther Daily Note ---
OT Current Status-Daily Note Subjective Pt in chair lying back resting upon arrival, alert and required encouragement for therapy. Pt stated in so much pain couldn't participate today, pt reluctantly agreed for therapist to come back at a later time. Mental Status/Objective Patient Orientation: Person, Place, Time, Situation ADL-Treatment Pt did mention needing to use restroom. Pt sit to stand transfer and ambulated independently into bathroom. Pt completed toilet hygiene and toilet transfer independently. Pt ambulated back to room and sat in chair. Pt was left in room sitting up in chair, with phone and call light within reach, all needs met at this time. nursing notified about pt pain. Therapy Code Descriptions/Definitions Functional [place] Measure: 0=Not Assessed/NA 4=Minimal Assistance 1=Total Assistance 5=Supervision or Setup 2=Maximal Assistance 6=Modified [place] 3=Moderate Assistance 7=Complete IndependenceSCALE: Activities may be completed with or without assistive devices. 9-Flqfitfcvs-aqytwdk completes the activity by him/herself with no assistance from a helper. 5-Set-up or Clean-up Assistance-helper sets up or cleans up; patient completes activity. [place] assists only prior to or following the activity. 4-Supervision or Touching Assistance-helper provides verbal cues and/or touching/steadying and/or contact guard assistance as patient completes activity. Assistance may be provided throughout the activity or intermittently. 3-Partial/Moderate Assistance-helper does LESS THAN HALF the effort. [place] lifts, holds or supports trunk or limbs, but provides less than half the effort. 2-Substantial/Maximal Assistance-helper does MORE THAN HALF the effort. [place] lifts or holds trunk or limbs and provides more than half the effort. 4-Mrkexwqkh-gfcdem does ALL the effort. Patient does none of the effort to complete the activity. Or, the assistance of 2 or more helpers is required for the patient to complete the activity. If activity was not attempted, code reason: 7-Patient Refused. 9-Not Applicable-not attempted and the patient did not perform the activity before the current illness, exacerbation or injury. 10-Not Attempted due to Environmental Limitations-(lack of equipment, weather restraints, etc.). 88-Not Attempted due to Medical Conditions or Safety Concerns. Toileting Hygiene (QC): 6 Toilet Transfer (QC): 6 Education OT Patient Education: Correct positioning, Energy conservation, Progress toward Goal/Update tx plan, Purpose of tx/functional activities OT Short Term Goals Short Term Goals Time Frame: Oct 11, 2022 Eatin Oral hygiene: 6 Toileting hygiene: 5 OT Transport Driver Goals Transport Driver Goals Acute change in mental status: 0 Inattention: 0 Disorganized thinkin Altered level of consciousness: 0 Eating (QC): 6 Oral Hygiene (QC): 6 Toileting Hygiene (QC): 6 Shower/Bathe Self (QC): 6 Upper Body Dressing (QC): 6 Lower Body Dressing (QC): 6 On/Off Footwear (QC): 6 1=Demonstrate adherence to instructed precautions during ADL tasks. 2=Patient will verbalize/demonstrate understanding of assistive devices/modifications for ADL. 3=Patient will improve strength/tolerance for activity to enable patient to p erform ADL's. OT Education/Plan Discharge Recommendations Plan/Recommendations: Continue POC Treatment Plan/Plan of Care Patient would benefit from OT for education, treatment and training to promote independence in ADL's, mobility, safety and/or upper extremity function for ADL's. Plan of Care: ADL Retraining, Cognitive Retraining, Concurrent Therapy Treatment Duration: Nov 07, 2022 Frequency: At least 5 of 7 days/Wk (IRF) Estimated Hrs Per Day: 1.5 hours per day Agreement: Yes Rehab Potential: Good Time Start Time: 09:45 Stop Time: 10:00 DATE: Oct 13, 2022 Total Time Billed (hr/min): 15 Billed Treatment Time 1 visit ADL 2 (15 min) Denise Grajeda COTA Oct 13, 2022 12:42
--- NOTE | 2022-10-13 12:54 | Occupational Ther Daily Note ---
OT Current Status-Daily Note Subjective Pt lying back in chair upon arrival, alert and cooperative. Pt requested shower. Mental Status/Objective Patient Orientation: Person, Place, Time, Situation ADL-Treatment Pt ambulated to bathroom independently. Pt independent in all ADLs on this date. Pt has demonstrated the ability to complete footwear independently. Pt completed shower, upper body and lower body dressing and grooming at the sink during today session. To address functional mobility, pt ambulated around room independently, pickup up/cleaned up room, using L UE. Pt ambulated back to chair to rest. Increased time due to amount of pain pt was in today. So pt was left in chair in room with call light and phone within reach, all needs met. Therapy Code Descriptions/Definitions Functional [place] Measure: 0=Not Assessed/NA 4=Minimal Assistance 1=Total Assistance 5=Supervision or Setup 2=Maximal Assistance 6=Modified [place] 3=Moderate Assistance 7=Complete IndependenceSCALE: Activities may be completed with or without assistive devices. 9-Rqbgsaqhps-xdoekhk completes the activity by him/herself with no assistance from a helper. 5-Set-up or Clean-up Assistance-helper sets up or cleans up; patient completes activity. [place] assists only prior to or following the activity. 4-Supervision or Touching Assistance-helper provides verbal cues and/or touching/steadying and/or contact guard assistance as patient completes activity. Assistance may be provided throughout the activity or intermittently. 3-Partial/Moderate Assistance-helper does LESS THAN HALF the effort. [place] lifts, holds or supports trunk or limbs, but provides less than half the effort. 2-Substantial/Maximal Assistance-helper does MORE THAN HALF the effort. [place] lifts or holds trunk or limbs and provides more than half the effort. 5-Wzcocgvdo-vmddyh does ALL the effort. Patient does none of the effort to complete the activity. Or, the assistance of 2 or more helpers is required for the patient to complete the activity. If activity was not attempted, code reason: 7-Patient Refused. 9-Not Applicable-not attempted and the patient did not perform the activity before the current illness, exacerbation or injury. 10-Not Attempted due to Environmental Limitations-(lack of equipment, weather restraints, etc.). 88-Not Attempted due to Medical Conditions or Safety Concerns. Eating (QC): 6 Oral Hygiene (QC): 6 Bathing Location: L Arm, R Arm, L Upper Leg, R Upper Leg, L Lower Leg (including foot), R Lower Leg (including foot), Chest, Abdomen, Buttocks, Perineal Area Shower/Bathe Self (QC): 6 Upper Body Dressing (QC): 6 Lower Body Dressing (QC): 6 On/Off Footwear: 6 Toileting Hygiene (QC): 6 Toilet Transfer (QC): 6 Education OT Patient Education: Correct positioning, Energy conservation, Home exercise program, Progress toward Goal/Update tx plan, Purpose of tx/functional activities Teaching Recipient: Patient Teaching Methods: Demonstration, Discussion Response to Teaching: Verbalize Understanding BIMS CAM BIMS Expression of Ideas and Wants: Without Difficulty Understanding Verbal Content: Understands Brief Interview/Mental Status: Yes IRF CODY BIMS: IRF CODY BIMS Response (Comments) Value Repitition of Three Words Three 3 Recalls Socks Yes, No Cue Required 2 Recalls Blue Yes, No Cue Required 2 Recalls Bed Yes, No Cue Required 2 Year Correct 3 Month Accurate Within 5 Days 2 Day Correct 1 Total 15 Patient Normally Able to Recal: Current Session, Location of own room, Staff Names and faces, That he/she in a [facility] Should Staff Asses. Mental St.: No CAM Mental Status Change/Baseline: 0 Inattention: 0 Disorganized thinkin Altered level of consciousness: 0 OT Short Term Goals Short Term Goals Time Frame: Oct 11, 2022 Eatin Oral hygiene: 6 Toileting hygiene: 5 OT Mri Technologist Goals Mcc Goals Acute change in mental status: 0 Inattention: 0 Disorganized thinkin Altered level of consciousness: 0 Eating (QC): 6 (met) Oral Hygiene (QC): 6 (met) Toileting Hygiene (QC): 6 (mt) Shower/Bathe Self (QC): 6 (met) Upper Body Dressing (QC): 6 (met) Lower Body Dressing (QC): 6 (met) On/Off Footwear (QC): 6 (met) 1=Demonstrate adherence to instructed precautions during ADL tasks. 2=Patient will verbalize/demonstrate understanding of assistive devices/modifications for ADL. 3=Patient will improve strength/tolerance for activity to enable patient to perform ADL's. OT Education/Plan Discharge Recommendations Plan/Recommendations: Continue POC Treatment Plan/Plan of Care Patient would benefit from OT for education, treatment and training to promote independence in ADL's, mobility, safety and/or upper extremity function for ADL's. Plan of Care: ADL Retraining, Cognitive Retraining, Concurrent Therapy Treatment Duration: Nov 07, 2022 Frequency: At least 5 of 7 days/Wk (IRF) Estimated Hrs Per Day: 1.5 hours per day Agreement: Yes Rehab Potential: Good Time Start Time: 11:15 Stop Time: 12:00 DATE: Oct 13, 2022 Total Time Billed (hr/min): 45 Billed Treatment Time 1 visit ADL 3 (45 min) Denise Grajeda COTA Oct 13, 2022 12:54
--- NOTE | 2022-10-13 15:14 | Occupational Ther Daily Note ---
OT Current Status-Daily Note Subjective Pt in room in chair, upon arrival, alert and cooperative. Agreed to therapy. Mental Status/Objective Patient Orientation: Person, Place, Time, Situation ADL-Treatment Pt completed exercises on R wrist only due to clavicle fracture, to keep wrist and fingers mobile and strengthening. Pt completed UE exercises 10 reps 2 sets with 3# wt on L only to address strengthening for daily function/functional mobility needed for ADLs. Also to address strengthening and coordination, pt completed finger isolation exercises 10 reps 2 sets. Pt then ambulated independently to bathroom, and completed toilet hygiene, toilet transfer. Pt then ambulated to room and sat in wheelchair. Pt was left in room, call light and phone within reach, all needs met. Therapy Code Descriptions/Definitions Functional [place] Measure: 0=Not Assessed/NA 4=Minimal Assistance 1=Total Assistance 5=Supervision or Setup 2=Maximal Assistance 6=Modified [place] 3=Moderate Assistance 7=Complete IndependenceSCALE: Activities may be completed with or without assistive devices. 1-Qswaskfwiz-qwgqpmf completes the activity by him/herself with no assistance from a helper. 5-Set-up or Clean-up Assistance-helper sets up or cleans up; patient completes activity. [place] assists only prior to or following the activity. 4-Supervision or Touching Assistance-helper provides verbal cues and/or touching/steadying and/or contact guard assistance as patient completes activity. Assistance may be provided throughout the activity or intermittently. 3-Partial/Moderate Assistance-helper does LESS THAN HALF the effort. [place] lifts, holds or supports trunk or limbs, but provides less than half the effort. 2-Substantial/Maximal Assistance-helper does MORE THAN HALF the effort. [place] lifts or holds trunk or limbs and provides more than half the effort. 6-Kmflhkwlg-rtuibh does ALL the effort. Patient does none of the effort to complete the activity. Or, the assistance of 2 or more helpers is required for the patient to complete the activity. If activity was not attempted, code reason: 7-Patient Refused. 9-Not Applicable-not attempted and the patient did not perform the activity before the current illness, exacerbation or injury. 10-Not Attempted due to Environmental Limitations-(lack of equipment, weather restraints, etc.). 88-Not Attempted due to Medical Conditions or Safety Concerns. Education OT Patient Education: Correct positioning, Energy conservation, Modified ADL techniques Teaching Recipient: Patient Teaching Methods: Discussion Response to Teaching: Verbalize Understanding OT Short Term Goals Short Term Goals Time Frame: Oct 11, 2022 Eatin Oral hygiene: 6 Toileting hygiene: 5 OT Longterm Goals Longterm Goals Acute change in mental status: 0 Inattention: 0 Disorganized thinkin Altered level of consciousness: 0 Eating (QC): 6 (met) Oral Hygiene (QC): 6 (met) Toileting Hygiene (QC): 6 (mt) Shower/Bathe Self (QC): 6 (met) Upper Body Dressing (QC): 6 (met) Lower Body Dressing (QC): 6 (met) On/Off Footwear (QC): 6 (met) 1=Demonstrate adherence to instructed precautions during ADL tasks. 2=Patient will verbalize/demonstrate understanding of assistive devices/modifications for ADL. 3=Patient will improve strength/tolerance for activity to enable patient to perform ADL's. OT Education/Plan Discharge Recommendations Plan/Recommendations: Continue POC Treatment Plan/Plan of Care Patient would benefit from OT for education, treatment and training to promote independence in ADL's, mobility, safety and/or upper extremity function for ADL's. Plan of Care: ADL Retraining, Cognitive Retraining, Concurrent Therapy Treatment Duration: Nov 07, 2022 Frequency: At least 5 of 7 days/Wk (IRF) Estimated Hrs Per Day: 1.5 hours per day Agreement: Yes Rehab Potential: Good Time Start Time: 13:00 Stop Time: 13:30 DATE: Oct 13, 2022 Total Time Billed (hr/min): 30 Billed Treatment Time 1 visit Ex 1 (15) ADL 1 (15) Denise Grajeda COTA Oct 13, 2022 15:14
[2022-10-13 19:43] VITALS: BP 127/72
[2022-10-13] MEDS: LIDOCAINE PATCH REMOVAL TP SCH (21:55)
[2022-10-14] MEDS: HYDROcodone/APAP 5 MG/325 MG (LORTAB) TAB PO PRN ×4 (02:30→15:07)
[2022-10-14] MEDS: inSUlin ASPART (NovoLOG) 1 UNIT/0.01 ML (CHARGE PER UNIT) SC SCH ×5 (05:58→11:51)
[2022-10-14] MEDS: ENOXAPARIN 40 MG/0.4 ML (LOVENOX) SYR SC SCH (07:03)
[2022-10-14] MEDS ORDERED: ACHD5005 PO (07:06)
[2022-10-14] MEDS ORDERED: BLOO-662 MC (07:06)
[2022-10-14] MEDS ORDERED: PEN-53 MC (07:06)
[2022-10-14] MEDS ORDERED: LISI10TA25 PO (07:06)
[2022-10-14] MEDS ORDERED: SENN-271 PO (07:06)
[2022-10-14] MEDS ORDERED: OXC5T PO (07:06)
[2022-10-14] MEDS ORDERED: LANC1EAC92 MC (07:06)
[2022-10-14] MEDS ORDERED: AMLO-250 PO (07:06)
[2022-10-14] MEDS ORDERED: INSU100I88 SQ (07:06)
[2022-10-14] MEDS ORDERED: INSU100I14 SQ (07:06)
[2022-10-14] MEDS ORDERED: ASPI81TA64 PO (07:06)
[2022-10-14] MEDS ORDERED: ATOR20TA66 PO (07:06)
--- NOTE | 2022-10-14 07:08 | D/C HH Face to Face Order ---
D/C Face to Face Orders Reconcile Patient Problems Problems Reviewed?: Yes Instructions for Patient [facility] Patient Instructions/FollowUp: Dr Blank as scheduled Thursday10/28/22 [place] office Physician to follow Patient: Abhay Discharge Diet for Home: ADA Diet Patient Problems: DM Rib fractures Clavicle fracture Patient Data-Allergies,Ht & Wt Patient Allergies: Coded Allergies: No Known Drug Allergies (Unverified , 01/03/14) Height (Feet): 5 Height (Inches): 10.00 Weight (Pounds): 170 Weight (Ounces): 0.0 Home Health Need/Face to Face Date of Face to Face: Oct 14, 2022 Clinical Findings: Generalized weakness and fatigue, Pain with ambulation I have seen Pt [id number]: Yes Discharged To: Home Diagnosis/Conditions: Fx Patient is Homebound due to: CognItive deficits, [place]ul[place] fall risk due to instabilty, Muscle weakness, Pain w/ambulation Homebound Status Due to the above stated illness, injury or surgical procedure (medical condition or diagnosis) and associated clinical findings, the patient is homebound because of his/her inability to leave home except with aid of a supportive device and/or person AND leaving the home requires a considerable and taxing effort or is medically contraindicated. Pt req the following assistanc: [facility] Home Health Nursing Orders Home Health Services Order: Nursing Services, Copy Cutter-Evaluate & Treat, Physical Therapy-Evaluate & Treat Certify Stmt I certify that this patient is under my care and that I, a nurse practitioner or a physician; a process assistant working with me, had a face to face encounter that - meets the physician face to face encounter requirements with this patient as dated. TOM BLANK DO Oct 14, 2022 07:08
--- NOTE | 2022-10-14 07:09 | Discharge Summary ---
Diagnosis/Chief Complaint Date of Admission Oct 08, 2022 at 14:40 Date of Discharge Discharge Date: Oct 14, 2022 Discharge Diagnosis Assessment: Fall off horse and found down in field with right clavicle fracture History of TBI History of foot drop Multiple falls Diabetes noncompliant with insulin Hemoglobin A1c 14.8 CAD previous stents Hyperlipidemia Depression Hypertension Plan: Aggressive PT and OT Fall risk Insulin Blood pressure meds 10/09/2022: Add statin Add MALIHA inhibitor Increase insulin 10/10/2022: Adjust insulin Lidocaine patch to ribs 10/11/2022: Monitor pain Sugars are very labile 10/12/2022: Fine-tune insulin regimen 10/13/2022: Supportive care (1) Right clavicle fracture (2) Diabetes (3) Noncompliance (4) Foot drop (5) TBI (traumatic brain injury) (6) Rib pain on right side (7) Coronary artery disease Status: Acute (8) Hyperlipemia Onset Date: 01/04/2014 Status: Acute Discharge Summary Discharge Physical Examination Allergies: Coded Allergies: No Known Drug Allergies (Unverified , 01/03/14) Vitals & I&Os Vital Signs Date Time Temp Pulse Resp B/P (MAP) Pulse Ox O2 Delivery O2 Flow Rate FiO2 10/14/22 15:10 36.8 88 8 138/88 96 Room Air General Appearance: Alert, Oriented X3, Cooperative Respiratory: Clear to Auscultation Cardiovascular: Regular Rate Psych/Mental Status: Mental Status NL Hospital Course Was the Problem List Reviewed?: Yes Hospital course: Patient had an uneventful hospital course after he was admitted following a fall from his horse and sustaining a right clavicle fracture with rib fractures. He has a history of cervical and lumbar spine surgeries resulting in foot drop and multiple falls on a regular basis at home. He remained in a sling for his right arm. Pain was difficult to control at times. Blood pressure management along with diabetes management initiated since he has been noncompliant with taking chronic medications for insulin-dependent diabetes and CAD previous stents in the past. Overall he did very well he will establish his care with me in my clinic and insulin and statin and aspirin therapy along with blood pressure management will be continued. Labs (last 24 hrs) Laboratory Tests 10/08/22 20:06: Glucometer 330H 10/09/22 05:19: Glucometer 138H 10/09/22 05:34: White Blood Count 11.6H, Red Blood Count 4.70, Hemoglobin 14.6, Hematocrit 42, Mean Corpuscular Volume 90, Mean Corpuscular Hemoglobin 31, Mean Corpuscular Hemoglobin Concent 35, Red Cell Distribution Width 12.2, Platelet Count 181, Mean Platelet Volume 10.9, Immature Granulocyte % (Auto) 0, Neutrophils (%) (Auto) 75, Lymphocytes (%) (Auto) 15, Monocytes (%) (Auto) 9, Eosinophils (%) (A uto) 1, Basophils (%) (Auto) 1, Neutrophils # (Auto) 8.7H, Lymphocytes # (Auto) 1.7, Monocytes # (Auto) 1.1H, Eosinophils # (Auto) 0.1, Basophils # (Auto) 0.1, Immature Granulocyte # (Auto) 0.0, Sodium Level 134L, Potassium Level 3.4L, Chloride Level 99, Carbon Dioxide Level 26, Anion Gap 9, Blood Urea Nitrogen 14, Creatinine 0.78, Estimat Glomerular Filtration Rate 103, BUN/Creatinine Ratio 18, Glucose Level 100, Calcium Level 9.1, Corrected Calcium 9.2, Total Bilirubin 0.6, Aspartate Amino Transf (AST/SGOT) 32, Alanine Aminotransferase (ALT/SGPT) 2 8, Alkaline Phosphatase 94, Total Protein 6.9, Albumin 3.9 10/09/22 11:06: Glucometer 172H 10/09/22 15:13: Glucometer 196H 10/09/22 20:05: Glucometer 202H 10/10/22 05:44: Glucometer 176H 10/10/22 10:55: Glucometer 144H 10/10/22 15:59: Glucometer 60*L 10/10/22 16:30: Glucometer 81 10/10/22 20:43: Glucometer 227H 10/11/22 06:58: Glucometer 172H 10/11/22 10:11: Glucometer 210H 10/11/22 15:29: Glucometer 208H 10/11/22 20:10: Glucometer 196H 10/12/22 06:27: Glucometer 236H 10/12/22 10:26: Glucometer 247H 10/12/22 15:03: Glucometer 200H 10/12/22 20:16: Glucometer 98 10/13/22 05:40: White Blood Count 7.4, Red Blood Count 4.30, Hemoglobin 13.4, Hematocrit 39L, Mean Corpuscular Volume 91, Mean Corpuscular Hemoglobin 31, Mean Corpuscular Hemoglobin Concent 34, Red Cell Distribution Width 12.0, Platelet Count 202, Mean Platelet Volume 10.6, Immature Granulocyte % (Auto) 0, Neutrophils (%) (Auto) 65, Lymphocytes (%) (Auto) 25, Monocytes (%) (Auto) 8, Eosinophils (%) (Auto) 2, Basophils (%) (Auto) 1, Neutrophils # (Auto) 4.8, Lymphocytes # (Auto) 1.8, Monocytes # (Auto) 0.6, Eosinophils # (Auto) 0.1, Basophils # (Auto) 0.0, Immature Granulocyte # (Auto) 0.0, Sodium Level 135, Potassium Level 4.4, Chloride Level 102, Carbon Dioxide Level 26, Anion Gap 7, Blood Urea Nitrogen 15, Creatinine 0.77, Estimat Glomerular Filtration Rate 103, BUN/Creatinine Ratio 19, Glucose Level 248H, Calcium Level 8.8, Corrected Calcium 9.4, Total Bilirubin 0.4, Aspartate Amino Transf (AST/SGOT) 18, Alanine Aminotransferase (ALT/SGPT) 19, Alkaline Phosphatase 80, Total Protein 5.9L, Albumin 3.3 10/13/22 10:43: Glucometer 225H 10/13/22 15:10: Glucometer 258H 10/13/22 20:39: Glucometer 306H 10/14/22 05:41: Glucometer 193H 10/14/22 10:54: Glucometer 150H Pending Labs Laboratory Tests 10/08/22 20:06: Glucometer 330 10/09/22 05:19: Glucometer 138 10/09/22 05:34: White Blood Count 11.6, Red Blood Count 4.70, Hemoglobin 14.6, Hematocrit 42, Mean Corpuscular Volume 90, Mean Corpuscular Hemoglobin 31, Mean Corpuscular Hemoglobin Concent 35, Red Cell Distribution Width 12.2, Platelet Count 181, Mean Platelet Volume 10.9, Immature Granulocyte % (Auto) 0, Neutrophils (%) (Auto) 75, Lymphocytes (%) (Auto) 15, Monocytes (%) (Auto) 9, Eosinophils (%) (Auto) 1, Basophils (%) (Auto) 1, Neutrophils # (Auto) 8.7, Lymphocytes # (Auto) 1.7, Monocytes # (Auto) 1.1, Eosinophils # (Auto) 0.1, Basophils # (Auto) 0.1, Immature Granulocyte # (Auto) 0.0, Sodium Level 134, Potassium Level 3.4, Chlori de Level 99, Carbon Dioxide Level 26, Anion Gap 9, Blood Urea Nitrogen 14, Creatinine 0.78, Estimat Glomerular Filtration Rate 103, BUN/Creatinine Ratio 18, Glucose Level 100, Calcium Level 9.1, Corrected Calcium 9.2, Total Bilirubin 0.6, Aspartate Amino Transf (AST/SGOT) 32, Alanine Aminotransferase (ALT/SGPT) 28, Alkaline Phosphatase 94, Total Protein 6.9, Albumin 3.9 10/09/22 11:06: Glucometer 172 10/09/22 15:13: Glucometer 196 10/09/22 20:05: Glucometer 202 10/10/22 05:44: Glucometer 176 10/10/22 10:55: Glucometer 144 10/10/22 15:59: Glucometer 60 10/10/22 16:30: Glucometer 81 10/10/22 20:43: Glucometer 227 10/11/22 06:58: Glucometer 172 10/11/22 10:11: Glucometer 210 10/11/22 15:29: Glucometer 208 10/11/22 20:10: Glucometer 196 10/12/22 06:27: Glucometer 236 10/12/22 10:26: Glucometer 247 10/12/22 15:03: Glucometer 200 10/12/22 20:16: Glucometer 98 10/13/22 05:40: White Blood Count 7.4, Red Blood Count 4.30, Hemoglobin 13.4, Hematocrit 39, Mean Corpuscular Volume 91, Mean Corpuscular Hemoglobin 31, Mean Corpuscular Hemoglobin Concent 34, Red Cell Distribution Width 12.0, Platelet Count 202, Mean Platelet Volume 10.6, Immature Granulocyte % (Auto) 0, Neutrophils (%) (Auto) 65, Lymphocytes (%) (Auto) 25, Monocytes (%) (Auto) 8, Eosinophils (%) (Auto) 2, Basophils (%) (Auto) 1, Neutrophils # (Auto) 4.8, Lymphocytes # (Auto) 1.8, Monocytes # (Auto) 0.6, Eosinophils # (Auto) 0.1, Basophils # (Auto) 0.0, Immature Granulocyte # (Auto) 0.0, Sodium Level 135, Potassium Level 4.4, Chloride Level 102, Carbon Dioxide Level 26, Anion Gap 7, Blood Urea Nitrogen 15, Creatinine 0.77, Estimat Glomerular Filtration Rate 103, BUN/Creatinine Ratio 19, Glucose Level 248, Calcium Level 8.8, Corrected Calcium 9.4, Total Bilirubin 0.4, Aspartate Amino Transf (AST/SGOT) 18, Alanine Aminotransferase (ALT/SGPT) 19, Alkaline Phosphatase 80, Total Protein 5.9, Albumin 3.3 10/13/22 10:43: Glucometer 225 10/13/22 15:10: Glucometer 258 10/13/22 20:39: Glucometer 306 10/14/22 05:41: Glucometer 193 10/14/22 10:54: Glucometer 150 Discharge Home Medications: Active Scripts Active Lancets 33 Gauge Each Each [facility] Pharmacist Choice (Blood Sugar Diagnostic) 1 Each Strip 1 Each [facility] Advocate Pen Needle (Pen Needle, Diabetic) 33 Gauge X 5/32" Dis.needle Each [facility] Levemir Flexpen (Insulin Detemir) 100 Unit/Ml (3 Ml) Insuln.pen 10 Unit SQ BID Novolog Flexpen (Insulin Aspart) 100 Unit/Ml (3 Ml) Solution 5 Units SQ AC Stool Softener-Laxative Tablet (Sennosides/Docusate Sodium) 8.6 Mg-50 Mg Tablet 1 Ea PO BID Oxyir Tablet (Oxycodone HCl) 5 Mg Tab 10 Mg PO Q4H PRN Hydrocodone-Acetamin 5-325 mg (Hydrocodone/Acetaminophen) 5 Mg-325 Mg Tablet 1-2 Ea PO Q4H PRN Children's Aspirin (Aspirin) 81 Mg Tab.chew 81 Mg PO DAILY Lisinopril 10 Mg Tablet 10 Mg PO DAILY@0900 Amlodipine Besylate 5 Mg Tablet 5 Mg PO DAILY Atorvastatin Calcium 20 Mg Tablet 20 Mg PO HS Instructions to patient/family Please see electronic discharge instructions given to patient. Diagnosis/Problems Diagnosis/Problems (1) Right clavicle fracture (2) Diabetes Qualifiers: Qualified Codes: E11.40 - Type 2 diabetes mellitus with diabetic neuropathy, unspecified; Z79.4 - retirement (current) use of insulin (3) Noncompliance (4) Foot drop (5) TBI (traumatic brain injury) (6) Rib pain on right side (7) Coronary artery disease Status: Acute (8) Hyperlipemia Onset Date: 01/04/2014 Status: Acute TOM AGUIRRE DO Oct 14, 2022 07:09
[2022-10-14] MEDS: ASPIRIN 81 MG CHEW (CHILDREN'S ASA) PO SCH (07:44)
[2022-10-14] MEDS: lisINopril 10 MG (PRINIVIL) TABLET PO SCH (07:44)
[2022-10-14] MEDS: SENNA W/DOCUSATE (SENOKOT S) TABLET PO SCH (07:44)
[2022-10-14] MEDS: DOCUSATE SODIUM 100 MG (COLACE) CAP PO SCH (07:44)
[2022-10-14] MEDS: LIDOCAINE 4% (SALONPAS) PATCH TOP SCH (07:45)
[2022-10-14] MEDS: amLODIPine 5 MG (NORVASC) TAB PO SCH (07:45)
[2022-10-14 08:00] VITALS: BP 139/74
--- NOTE | 2022-10-14 13:15 | Therapy Team Discharge Summary ---
Therapy Discharge Summary Discharge Recommendations Date of Discharge 10/14/2022 Therapy D/C Recommendations: Physical Therapy Home Care Physical Therapy Pt fell off a horse on 10/07/2022 with R clavicle fx and rib pain; Admitted to ARU on 10/08/2022. At [facility], pt was Ind with no AD, driving, and working his land. At PT [facility], pt was Min A for bed mobility, secondary to increased R sided pain. Pt was CGA for transfers, walking, and stairs. PT worked on balance, safety, strength, walking, endurance, and Ind. Pt progressed well with PT and met most set goals. Pt is Ind with bed mobility and functional transfers, but cont to require SBA/CGA for walking and steps, secondary to increased pain and balance issues. Pt is at [facility]. D/C on 10/14/2022 to home with family assistance and PT. D/C from PT. Roll Left to Right (QC): 6 Sit to Lying (QC): 6 Lying to Sitting/Side of Bed(Q: 6 Sit to Stand (QC): 6 Chair/Rli-ep-Ejnqm Xfer(QC): 6 Toilet Transfer (QC): 6 Car Transfer (QC): 6 Does the Patient Walk: Yes Mode of Locomotion: Walk Anticipated Mode of Locomotion: Walk Walk 10 feet (QC): 4 (SBA/CGA for safety, due to increased pain leading to unsteadiness ) Walk 50 ft with 2 Turns(QC): 4 (SBA/CGA for safety, due to increased pain leading to unsteadiness ) Walk 150 ft (QC): 4 (SBA/CGA for safety, due to increased pain leading to unsteadiness ) Walking 10ft on uneven surface: 4 (SBA/CGA for safety, due to increased pain leading to unsteadiness ) Distance: 150ft Gait Assistive Device: None Does the Pt Use a Wheelchair: Yes Wheel 50 ft with 2 turns (QC): 6 Wheel 150 ft (QC): 6 Type of Wheelchair: Manual #of Steps: 12 1 Step (curb) (QC): 4 (SBA/CGA for safety, due to increased pain leading to unsteadiness ) 4 Steps (QC): 4 (SBA/CGA for safety, due to increased pain leading to unsteadiness ) 12 Steps (QC): 4 (SBA/CGA for safety, due to increased pain leading to unsteadiness ) Balance Sitting Static: Normal Balance Sitting Dynamic: Normal Balance-Standing Static: Good Picking up an Object (QC): 6 Occupational Therapy Decreased Activ Tolerance, Decreased UE Strength Eating (QC): 6 Oral Hygiene (QC): 6 Shower/Bathe Self (QC): 6 Upper Body Dressing (QC): 6 Lower Body Dressing (QC): 6 On/Off Footwear (QC): 6 Toileting Hygiene (QC): 6 PT Accounts Receivable Manager Goals Alf Goals PT Alf Goals Time Frame: Oct 17, 2022 Roll Left to Right (QC): 6 Sit to Lying (QC): 6 Lying-Sitting on Side/Bed(QC): 6 Sit to Stand (QC): 6 Chair/Smk-zs-Vbjkd Xfer(QC): 6 Toilet/Commode Transfer (QC): 6 Car Transfer (QC): 6 Does the Patient Walk: Yes Walk 10 feet (QC): 6 Walk 10ft-Uneven Surface(QC): 6 Walk 50ft with 2 Turns (QC): 6 Walk 150 ft (QC): 6 Does the Pt use WC or Scooter?: No Wheel 50 feet with 2 turns (QC: 9 Type: N/A Wheel 150 feet: 9 Type: N/A 1 Step (curb) (QC): 6 4 Steps (QC): 6 12 Steps (QC): 6 Picking up an Object (QC): 6 OT Alf Goals Alf Goals Acute change in mental status: 0 Inattention: 0 Disorganized thinkin Altered level of consciousness: 0 Eating (QC): 6 (met) Oral Hygiene (QC): 6 (met) Toileting Hygiene (QC): 6 (mt) Shower/Bathe Self (QC): 6 (met) Upper Body Dressing (QC): 6 (met) Lower Body Dressing (QC): 6 (met) On/Off Footwear (QC): 6 (met) 1=Demonstrate adherence to instructed precautions during ADL tasks. 2=Patient will verbalize/demonstrate understanding of assistive devices/modifications for ADL. 3=Patient will improve strength/tolerance for activity to enable patient to perform ADL's. MAGUI MEYERS PT Oct 14, 2022 13:15
[2022-10-14 15:10] VITALS: BP 138/88
--- NOTE | 2022-10-16 13:59 | Therapy Team Discharge Summary ---
Therapy Discharge Summary Discharge Recommendations Date of Discharge Oct 14, 2022 at 15:10 Therapy D/C Recommendations: Physical Therapy Home Care Physical Therapy Roll Left to Right (QC): 6 Sit to Lying (QC): 6 Lying to Sitting/Side of Bed(Q: 6 Sit to Stand (QC): 6 Chair/Vkw-yo-Ilkfi Xfer(QC): 6 Toilet Transfer (QC): 6 Car Transfer (QC): 6 Does the Patient Walk: Yes Mode of Locomotion: Walk Anticipated Mode of Locomotion: Walk Walk 10 feet (QC): 4 (SBA/CGA for safety, due to increased pain leading to unsteadiness ) Walk 50 ft with 2 Turns(QC): 4 (SBA/CGA for safety, due to increased pain leading to unsteadiness ) Walk 150 ft (QC): 4 (SBA/CGA for safety, due to increased pain leading to unsteadiness ) Walking 10ft on uneven surface: 4 (SBA/CGA for safety, due to increased pain leading to unsteadiness ) Distance: 150ft Gait Assistive Device: None Does the Pt Use a Wheelchair: Yes Wheel 50 ft with 2 turns (QC): 6 Wheel 150 ft (QC): 6 Type of Wheelchair: Manual #of Steps: 12 1 Step (curb) (QC): 4 (SBA/CGA for safety, due to increased pain leading to unsteadiness ) 4 Steps (QC): 4 (SBA/CGA for safety, due to increased pain leading to unsteadiness ) 12 Steps (QC): 4 (SBA/CGA for safety, due to increased pain leading to unsteadiness ) Balance Sitting Static: Normal Balance Sitting Dynamic: Normal Balance-Standing Static: Good Picking up an Object (QC): 6 Occupational Therapy Pt fell off a horse on 10/07/2022 with R clavicle fx and rib pain; Admitted to ARU on 10/08/2022. At [facility], pt was Ind with no AD, driving, and working his land. At OT eval, pt was Min A for bed mobility, min assist for ADLs, secondary to increased R sided pain. Pt was CGA for transfers, walking, and stairs. OT worked on dynamic balance and functional reach, safety, strength and endurance. Pt progressed well with OT and met set goals. Pt is Ind with functional transfers, but cont to require SBA/CGA for walking and steps, secondary to increased pain and balance issues. Pt is at [facility]. D/C on 10/14/2022 to home with family assistance and PT. D/C from OT Decreased Activ Tolerance, Decreased UE Strength Eating (QC): 6 Oral Hygiene (QC): 6 Shower/Bathe Self (QC): 6 Upper Body Dressing (QC): 6 Lower Body Dressing (QC): 6 On/Off Footwear (QC): 6 Toileting Hygiene (QC): 6 PT Customs Collector Goals Customs Collector Goals PT Skilled Nursing Goals Time Frame: Oct 17, 2022 Roll Left to Right (QC): 6 Sit to Lying (QC): 6 Lying-Sitting on Side/Bed(QC): 6 Sit to Stand (QC): 6 Chair/Rzw-uk-Scdla Xfer(QC): 6 Toilet/Commode Transfer (QC): 6 Car Transfer (QC): 6 Does the Patient Walk: Yes Walk 10 feet (QC): 6 Walk 10ft-Uneven Surface(QC): 6 Walk 50ft with 2 Turns (QC): 6 Walk 150 ft (QC): 6 Does the Pt use WC or Scooter?: No Wheel 50 feet with 2 turns (QC: 9 Type: N/A Wheel 150 feet: 9 Type: N/A 1 Step (curb) (QC): 6 4 Steps (QC): 6 12 Steps (QC): 6 Picking up an Object (QC): 6 OT Skilled Nursing Goals Customs Collector Goals Acute change in mental status: 0 Inattention: 0 Disorganized thinkin Altered level of consciousness: 0 Eating (QC): 6 (met) Oral Hygiene (QC): 6 (met) Toileting Hygiene (QC): 6 (mt) Shower/Bathe Self (QC): 6 (met) Upper Body Dressing (QC): 6 (met) Lower Body Dressing (QC): 6 (met) On/Off Footwear (QC): 6 (met) 1=Demonstrate adherence to instructed precautions during ADL tasks. 2=Patient will verbalize/demonstrate understanding of assistive devices/modifications for ADL. 3=Patient will improve strength/tolerance for activity to enable patient to perform ADL's. CONRAD VASQUEZ OT Oct 16, 2022 13:59
== END 2022-10-14 15:10 | disposition home health service (06) | DRG 561 ==
PROVIDERS: ADMIT Internal Medicine; ATTEND Internal Medicine
DX: S42.001D Fracture of unspecified part of right clavicle, subsequent encounter for fracture with routine healing (principal); S22.41XD Multiple fractures of ribs, right side, subsequent encounter for fracture with routine healing; M21.371 Foot drop, right foot; Z91.81 History of falling; E11.65 Type 2 diabetes mellitus with hyperglycemia; I25.10 Atherosclerotic heart disease of native coronary artery without angina pectoris; I10 Essential (primary) hypertension; E78.5 Hyperlipidemia, unspecified; F41.9 Anxiety disorder, unspecified; F32.A Depression, unspecified; Z79.4 Long term (current) use of insulin; Z91.199 Patient's noncompliance with other medical treatment and regimen due to unspecified reason; Z87.891 Personal history of nicotine dependence; Z87.820 Personal history of traumatic brain injury; Z95.5 Presence of coronary angioplasty implant and graft; Z79.899 Other long term (current) drug therapy; Z79.82 Long term (current) use of aspirin; Z79.891 Long term (current) use of opiate analgesic; V80.010D Animal-rider injured by fall from or being thrown from horse in noncollision accident, subsequent encounter
CPT/HCPCS: 36415; 80053; 82947; 85025